=== PATIENT | female | born 1975 | race Caucasian/White ===

== ENCOUNTER 2018-08-19 05:08 | Emergency (ER) | payer OTHER, SELFPAY ==
[2018-08-19 05:10] VITALS: BP 160/90; PULSE 130; RESP 22; TEMP 36.8; O2SAT 97
[2018-08-19] MEDS: HYDROMORPHONE 2 MG INJ SUBCUT (05:25)
--- NOTE | 2018-08-19 05:28 | PC.NURSE ---
Attempt to do assessment. Pt is rolling on bed and yelling from pain. Unable to do assessment at this time. Pt is medicated at this time. will give her additional time to let Dilaudid work. aware.
[2018-08-19] MEDS: SODIUM CHLORIDE 0.9% 1,000 ML 1000 ML IV (05:45)
[2018-08-19] MEDS: HYDROMORPHONE 1 MG INJ IV (05:54)
--- NOTE | 2018-08-19 05:56 | ED_ITS ---
HPI - Female Genitourinary General Chief complaint: Urogenital-Female Stated complaint: Bladder spasms Time Seen by Provider: 08/19/18 05:11 Source: patient and family Mode of arrival: ambulatory Limitations: no limitations History of Present Illness HPI Narrative: 43-year-old female with known history of interstitial cystitis presents with her and a chief complaint of episodes of pelvic spasm that she has had on multiple occasions in the past. She has a chronic history of interstitial cystitis and has seen local urology for years and then was referred to [facility] when her case became too complicated. She has had hydro distention of her bladder on multiple occasions, most recently in November of last year. She denies any fever or chills. She denies any provocation, palliation or radiation. She is not dizzy nor weak or lightheaded. She denies any chest pain or shortness of breath. She takes Percocet at home which is not providing her relief this time around. Her spasms last between 5 and 10 sec Complaint: pelvic pain Onset (ago): hour(s) Location: suprapubic Severity: severe Severity scale (1-10): 9 Quality: Aching and Sharp Duration: intermittent Relieving factors: none Exacerbating factors: none Urinary symptoms: Difficulty Urinating Patient : No Associated symptoms: denies other symptoms Related Data Home Medications Medication Instructions Recorded Confirmed MULTIVITAMIN (#MULTIPLE VITAMINS) 1 cap PO Q DAY #0 12/03/11 Oxycodone/Acetaminophen (Percocet 1 tab PO HS #0 12/03/11 5-325 MG Tablet) [ELIMIRON] 100 mg PO TID #0 12/03/11 atenolol 50 mg PO QDAY #0 01/20/12 VITAMIN B COMPLEX (Vitamin B 1 tab PO QDAY #0 02/28/13 Complex) [IRON] #0 02/28/13 FENOFIBRATE NANOCRYSTALLIZED 100 mg PO BID #0 03/02/13 (TRIGLIDE) Phenazopyridine Hydrochlorid 200 mg PO PRN #0 03/02/13 (#PYRIDIUM) Promethazine HCl (PHENERGAN) 25 mg PO PRN #0 03/02/13 cyclobenzaprine 10 mg PO QDAY #0 03/02/13 hydrochlorothiazide 25 mg PO QDAY #0 03/02/13 imipramine HCl 100 mg PO HS #0 07/10/13 metformin [Glucophage] 500 mg PO BIDCC #0 03/02/13 tamsulosin [Flomax] 0.4 mg PO QHS #0 03/02/13 Previous Rx's Medication Instructions Recorded belladonna alkaloids-opium 1 suppositor GA TID PRN #12 each 08/19/18 Allergies Allergy/AdvReac Type Severity Reaction Status Date / Time nortriptyline [NORTRIPTYLINE] Allergy Mild HIVES Verified 08/19/18 05:15 Sulfa (Sulfonamide Allergy Mild RASH Verified 08/19/18 05:15 Antibiotics) [SULFA (SULFONAMIDE ANTIBIOTICS)] gabapentin [GABAPENTIN] AdvReac Mild ANGRY Verified 08/19/18 05:15 pregabalin [PREGABALIN] AdvReac Mild SWELLING Verified 08/19/18 05:15 HANDS/FEET Review of Systems Review of Systems All systems reviewed & are unremarkable except as noted in HPI and below Constitutional Denies chills, Denies fever(s), Denies lethargy and Denies weakness Eyes Denies change in vision, Denies eye discharge, Denies irritation and Denies loss of vision ENT Ears, Nose, Mouth, and Throat: Denies change in voice, Denies neck pain and Denies sore throat Cardiovascular Denies chest pain, Denies irregular heart rhythm, Denies lightheadedness, Denies palpitations, Denies dyspnea, Denies dyspnea on exertion and Denies orthopnea Respiratory Denies cough, Denies dyspnea, Denies dyspnea on exertion and Denies wheezing Gastrointestinal Gastrointestinal: Denies abdominal pain, Denies change in bowel habits, Denies diarrhea, Denies nausea and Denies vomiting Genitourinary Denies hematuria, Reports pelvic pain, Denies flank pain, Denies urinary incontinence and Denies urinary urgency Musculoskeletal Denies neck pain Integumentary/Breasts Denies pruritus, Denies erythema, Denies rash and Denies wounds Neurologic Denies confusion, Denies loss of vision and Denies weakness Psychiatric Denies anxiety, Denies confusion, Denies depression, Denies homicidal ideation and Denies suicidal ideation Endocrine Denies palpitations Hematologic/Lymphatic Denies easy bruising Allergic/Immunologic Denies wheezing PFSH Medical History Chronic back pain (Chronic) Diabetes type 2, controlled (Chronic) HTN (hypertension) (Chronic) Social History household members: spouse lives independently: Yes caregiver/support person: No Smoking Status: Never smoker alcohol intake: never substance use type: does not use Exam Narrative Exam Narrative: GENERAL: 43-year-old female, obviously in significant distress , clutching her suprapubic region HEAD: Atraumatic. Normocephalic. No temporal or scalp tenderness. EYES: Pupils equal round and reactive. Extraocular motions intact. No scleral icterus. No injection or drainage. ENT: Nose without bleeding, purulent drainage or septal hematoma. Throat without erythema, tonsillar hypertrophy or exudate. Uvula midline. Airway patent. NECK: Trachea midline. No JVD or lymphadenopathy. Supple, nontender, no meningeal signs. CARDIOVASCULAR: Regular rate and rhythm without murmurs, gallops, or rubs. RESPIRATORY: Clear to auscultation. Breath sounds equal bilaterally. No wheezes , rales, or rhonchi. GASTROINTESTINAL: Abdomen soft, non-tender, nondistended. No hepato-splenomegaly , or palpable masses. No guarding. EXTREMITIES: No clubbing, cyanosis, or edema. No joint tenderness, effusion, or edema noted. BACK: Nontender without deformity or crepitance. No flank tenderness. NEURO: AOx3. SKIN: No rash or erythema. Initial Vital Signs Initial Vital Signs: Vital Signs Temperature 98.2 F 08/19/18 05:10 Pulse Rate 130 H 08/19/18 05:10 Respiratory Rate 22 08/19/18 05:10 Blood Pressure 160/90 H 08/19/18 05:10 Pulse Oximetry 97 08/19/18 05:10 Course Orders Ordered: Discontinued Medications Belladonna Alkaloids/Opium (B&O Supprettes) 1 each GA BID ROD Last Admin: 08/19/18 08:05 Dose: 1 each Hydromorphone HCl (Dilaudid) 1 mg IV NOW ONE Stop: 08/19/18 05:12 Last Admin: 08/19/18 05:54 Dose: 1 mg Hydromorphone HCl (Dilaudid) 2 mg SUBCUT NOW ONE Stop: 08/19/18 05:19 Last Admin: 08/19/18 05:25 Dose: 2 mg Sodium Chloride (Normal Saline 0.9%) 1,000 mls @ 1,000 mls/hr IV BOLUS ONE Stop: 08/19/18 06:10 Last Infusion: 08/19/18 07:08 Dose: 0 mls/hr Admin: 08/19/18 05:45 Dose: 1,000 mls/hr Lorazepam (Ativan) 0.5 mg IV NOW ONE Stop: 08/19/18 05:57 Last Admin: 08/19/18 06:10 Dose: 0.5 mg Reevaluation(s) Reevaluation #1: Patient feeling minimal relief after Dilaudid Reevaluation #2: Patient feeling much better after Ativan Consultations Consultation #1: Call to Urology at [facility], they state they have no significant recommendations other than what had already been given. They recommend that she call to schedule an outpatient appointment later in the day Vital Signs - 8 hr 08/19/18 05:10 Temperature 98.2 F Pulse Rate 130 H Respiratory Rate 22 Blood Pressure 160/90 H Pulse Oximetry 97 MDM - Female Genitourinary Lab Data Result diagrams: 08/19/18 05:40 08/19/18 05:40 Lab Results 08/19/18 08/19/18 08/19/18 Range/Units 05:40 05:40 06:12 WBC 10.1 (4.5-11.0) X10^3/uL RBC 4.59 (4.0-5.2) X10^6/uL Hgb 13.6 (12.0-16.0) g/dL Hct 41.7 (36-46) % MCV 90.9 (80-100) fL MCH 29.6 (26-34) PG MCHC 32.5 (30-36) % RDW 13.9 (11.6-14.8) % Plt Count 482 H (150-400) X10^3/uL Neut % (Auto) 57.7 (50-75) % Lymph % (Auto) 29.8 (25-40) % Page % (Auto) 7.5 (3-14) % Eos % (Auto) 4.4 H (2-4) % Baso % (Auto) 0.6 (0-2) % Sodium 140 (137-145) mmol/L Potassium 3.4 (3.4-5.1) mmol/L Chloride 101 (98-107) mmol/L Carbon Dioxide 19 L (22-32) mmol/L BUN 15 (7-17) mg/dL Creatinine 0.80 (0.52-1.04) mg/dL Estimated GFR > 60.0 (>60) mL/min BUN/Creatinine Ratio 18.8 (6-22) Glucose 249 H (70-100) mg/dL Calcium 10.8 H (8.4-10.2) mg/dL Urine RBC 0-1/hpf (0-5/HPF) Urine WBC 0-1/hpf (0-5/HPF) Ur Squamous Epith Cells 0-1 /hpf Urine Bacteria None seen (None) Ur Culture Indicated? Cult not indicated Micro UA Comment Not Reportable Urine Dip Bedside Urine Glucose Negative Bedside Urine Bilirubin - Negative Bedside Urine Ketone - Negative Urine Specific [place] 1.015 Bedside Urine Occult Blood + Bedside Urine pH 6.0 Bedside Urine Protein ++ 100 Bedside Urine Urobilinogen - Negative Bedside Urine Nitrite - Negative Bedside Urine Leukocytes - Negative Esterase Discharge Plan Departure Patient Disposition: Home Clinical Impression: Chronic interstitial cystitis Discharge Date/Time: 08/19/18 08:10 Interventions: ED Discharge Assessment Last Done: 08/19/18 08:09 Instructions: DI for Interstitial Cystitis Activity Restrictions/Additional Instructions: *You have been diagnosed with [interstitial cystitis with bladder spasm ] *What to do: *Take medications as directed *Follow up with your urologist, call for an appointment. Let them know you were seen in the Emergency Department and that we ask that you be seen in follow up *Return to ER if you should have any new, worsening or concerning symptoms Prescriptions: New belladonna alkaloids-opium 16.2-30 mg suppository 1 suppositor GA TID PRN (Reason: pain) Qty: 12 RF: 0 No Action Oxycodone/Acetaminophen (Percocet 5-325 MG Tablet) 1 tab PO HS Qty: 0 RF: 0 [ELIMIRON] 100 mg PO TID Qty: 0 RF: 0 MULTIVITAMIN (#MULTIPLE VITAMINS) 1 cap PO Q DAY Qty: 0 RF: 0 atenolol 50 MG tablet 50 mg PO QDAY Qty: 0 RF: 0 VITAMIN B COMPLEX (Vitamin B Complex) 1 tab PO QDAY Qty: 0 RF: 0 [IRON] Qty: 0 RF: 0 FENOFIBRATE NANOCRYSTALLIZED (TRIGLIDE) 100 mg PO BID Qty: 0 RF: 0 metformin [Glucophage] 500 MG tablet 500 mg PO BIDCC Qty: 0 RF: 0 Phenazopyridine Hydrochlorid (#PYRIDIUM) 200 mg PO PRN Qty: 0 RF: 0 Promethazine HCl (PHENERGAN) 25 mg PO PRN Qty: 0 RF: 0 tamsulosin [Flomax] 0.4 MG capsule,extended release 24hr 0.4 mg PO QHS Qty: 0 RF: 0 hydrochlorothiazide 25 MG tablet 25 mg PO QDAY Qty: 0 RF: 0 imipramine HCl 25 MG tablet 100 mg PO HS Qty: 0 RF: 0 cyclobenzaprine 10 MG tablet 10 mg PO QDAY Qty: 0 RF: 0
[2018-08-19] MEDS: LORazepam 2 MG/ML SYRINGE 0.5 MG IV (06:10)
[2018-08-19 06:15] LABS: BUN Creatinine Ratio 18.8 (6-22); Blood Urea Nitrogen 15 mg/dL (7-17); Calcium 10.8 mg/dL (8.4-10.2); Carbon Dioxide 19 mmol/L (22-32); Chloride 101 mmol/L (98-107); Estimated Glomerular Filt Rate > 60.0 mL/min (>60); Glucose 249 mg/dL (70-100); HEMOLYSIS < 15 (0-50); Potassium 3.4 mmol/L (3.4-5.1); Sodium 140 mmol/L (137-145)
[2018-08-19 06:28] VITALS: BP 145/90; PULSE 95; RESP 19; O2SAT 100
[2018-08-19 06:30] LABS: Bacteria Urine None Seen
[2018-08-19 06:58] LABS: Culture Indicated Urine Cult Not Indicated; RBC Urine 0-1/HPF (0-5/HPF); Squamous Epithelial Cell Urine 0-1 /HPF; WBC Urine 0-1/HPF (0-5/HPF)
[2018-08-19 07:28] LABS: Hematocrit 41.7 % (36-46); Hemoglobin 13.6 g/dL (12.0-16.0); Mean Corpuscular HGB Conc 32.5 % (30-36); Mean Corpuscular Hemoglobin 29.6 PG (26-34); Mean Corpuscular Volume 90.9 fL (80-100); Red Blood Cell Count 4.59 X10^6/uL (4.0-5.2); Red Cell Distribution Width 13.9 % (11.6-14.8); White Blood Cell Count 10.1 X10^3/uL (4.5-11.0)
[2018-08-19 07:29] LABS: Eosinophils Percent Auto 4.4 % (2-4); Lymphocytes Percent Auto 29.8 % (25-40); Monocytes Percent Auto 7.5 % (3-14); Neutrophils Percent Auto 57.7 % (50-75); Platelet Count 482 X10^3/uL (150-400)
[2018-08-19 07:30] LABS: Add Manual Diff / Slide Review NO; Basophils Percent Auto 0.6 % (0-2)
[2018-08-19 08:05] VITALS: BP 130/87; PULSE 82; RESP 14; O2SAT 98
[2018-08-19] MEDS: BELLADONNA/OPIUM SUPPOSITORIES 1 EACH PR (08:05)
== END 2018-08-19 08:10 | disposition home or self-care (01) ==
PROVIDERS: Emergency Provider Emergency Medicine; Family Provider Family Medicine; PCP Family Medicine
DX: N30.10 Interstitial cystitis (chronic) without hematuria (principal)
CPT/HCPCS: 36591; 80048; 81003; 81015; 85025; 96361; 96374; 96375; 99283; 99284; J1170; J2060

== ENCOUNTER 2018-10-02 15:54 | Emergency (ER) | payer OTHER, SELFPAY ==
[2018-10-02 15:58] VITALS: BP 147/95; PULSE 121; RESP 18; TEMP 36.8; O2SAT 95
--- NOTE | 2018-10-02 17:50 | ED.RECABL ---
HPI - Recheck/Abnormal Lab/Rx <Amina Howe PA-C - Last Filed: 10/02/18 20:50> General Chief Complaint: Recheck/Abnormal Lab/Rx Stated Complaint: BLADDER PAIN Time Seen by Provider: 10/02/18 16:36 Source: patient Mode of arrival: ambulatory Limitations: no limitations History of Present Illness HPI narrative: This 43-year-old female comes to ED due to needing help with pain management medications. She is on multiple medications for severe interstitial cystitis which she has had for many years including Elmiron, Imipramine, and has a neurostimulator for this. She states these help, but she has also been on oxycodone for years for the pain. She takes plain oxycodone as smaller amounts of Tylenol, states liver function being monitored. She denies any acute symptoms today. She states that her routine pain medication prescription was due on August 27[facility] and she has not been able to get this. She has her prescription bottle with her, takes 4-6 pills per day. 180 tabs were filled on September 12. She states that her pulse rates are typically similar to what they are now. Related Data Home Medications Medication Instructions Recorded Confirmed MULTIVITAMIN (#MULTIPLE VITAMINS) 1 cap PO Q DAY #0 12/03/11 Oxycodone/Acetaminophen (Percocet 1 tab PO HS #0 12/03/11 5-325 MG Tablet) [ELIMIRON] 100 mg PO TID #0 12/03/11 atenolol 50 mg PO QDAY #0 01/20/12 VITAMIN B COMPLEX (Vitamin B 1 tab PO QDAY #0 02/28/13 Complex) [IRON] #0 02/28/13 FENOFIBRATE NANOCRYSTALLIZED 100 mg PO BID #0 03/02/13 (TRIGLIDE) Phenazopyridine Hydrochlorid 200 mg PO PRN #0 03/02/13 (#PYRIDIUM) Promethazine HCl (PHENERGAN) 25 mg PO PRN #0 03/02/13 cyclobenzaprine 10 mg PO QDAY #0 03/02/13 hydrochlorothiazide 25 mg PO QDAY #0 03/02/13 imipramine HCl 100 mg PO HS #0 03/02/13 metformin [Glucophage] 500 mg PO BIDCC #0 03/02/13 tamsulosin [Flomax] 0.4 mg PO QHS #0 03/02/13 Previous Rx's Medication Instructions Recorded belladonna alkaloids-opium 1 suppositor [place] TID PRN #12 each 08/19/18 oxycodone 5 mg PO Q4-6H PRN #8 cap 10/02/18 Allergies Allergy/AdvReac Type Severity Reaction Status Date / Time nortriptyline [NORTRIPTYLINE] Allergy Mild HIVES Verified 08/19/18 05:15 Sulfa (Sulfonamide Allergy Mild RASH Verified 08/19/18 05:15 Antibiotics) [SULFA (SULFONAMIDE ANTIBIOTICS)] gabapentin [GABAPENTIN] AdvReac Mild ANGRY Verified 08/19/18 05:15 pregabalin [PREGABALIN] AdvReac Mild SWELLING Verified 08/19/18 05:15 HANDS/FEET Review of Systems <Amina Howe PA-C - Last Filed: 10/02/18 20:50> Review of Systems ROS Unobtainable: All systems reviewed & are unremarkable except as noted in HPI and below PFSH <Amina Howe PA-C - Last Filed: 10/02/18 20:50> Medical History Anxiety disorder (Chronic) Chronic back pain (Chronic) Chronic interstitial cystitis (Chronic) Diabetes type 2, controlled (Chronic) HTN (hypertension) (Chronic) No pertinent family history (Resolved) Surgical History Status post insertion of brain-responsive neurostimulation device (Resolved) Social History household members: spouse lives independently: Yes caregiver/support person: No Smoking Status: Never smoker alcohol intake: never substance use type: does not use Social History household members: spouse lives independently: Yes caregiver/support person: No Smoking Status: Never smoker alcohol intake: never substance use type: does not use Exam <Amina Howe PA-C - Last Filed: 10/02/18 20:50> Narrative Exam Narrative: GENERAL APPEARANCE: Patient sitting comfortably, in no distress. Slightly anxious at times LUNGS: Clear to auscultation bilaterally. HEART: Rate and rhythm regular without murmur, normal S1 and S2, no S3 or S4. ABDOMEN: Soft, nondistended, no CVAT Initial Vital Signs Initial Vital Signs: Vital Signs Temperature 98.2 F 10/02/18 15:58 Pulse Rate 121 H 10/02/18 15:58 Respiratory Rate 18 10/02/18 15:58 Blood Pressure 147/95 H 10/02/18 15:58 Pulse Oximetry 95 10/02/18 15:58 <Marlon Henry DO - Last Filed: 10/02/18 21:20> Initial Vital Signs Initial Vital Signs: Vital Signs Temperature 98.2 F 10/02/18 15:58 Pulse Rate 121 H 10/02/18 15:58 Respiratory Rate 18 10/02/18 15:58 Blood Pressure 147/95 H 10/02/18 15:58 Pulse Oximetry 95 10/02/18 15:58 Course <Amina Howe PA-C - Last Filed: 10/02/18 20:50> Additional Information: No previous prescriptions on statewide controlled substance database (consistent with rxs only at [facility], [facility]). Patient has her rx bottle, and staff here have confirmed that [facility] facilities have been closed. She was given prescription medication to last the weekend until she can reach her primary memory care director/[facility] pharmacy on Thursday. Orders Ordered: Discontinued Medications Oxycodone/Acetaminophen (Endocet 5/325 Prepack) 1 bottle MISC SEEINSTR ONE Stop: 10/02/18 18:04 Last Admin: 10/02/18 18:08 Dose: 1 bottle Vital Signs - 8 hr 10/02/18 15:58 10/02/18 17:59 Temperature 98.2 F Pulse Rate 121 H 122 H Respiratory Rate 18 22 Blood Pressure 147/95 H Blood Pressure [Right Arm] 113/83 Pulse Oximetry 95 82 L <Marlon Henry DO - Last Filed: 10/02/18 21:20> Orders Ordered: Discontinued Medications Oxycodone/Acetaminophen (Endocet 5/325 Prepack) 1 bottle MISC SEEINSTR ONE Stop: 10/02/18 18:04 Last Admin: 10/02/18 18:08 Dose: 1 bottle Vital Signs - 8 hr 10/02/18 15:58 10/02/18 17:59 Temperature 98.2 F Pulse Rate 121 H 122 H Respiratory Rate 18 22 Blood Pressure 147/95 H Blood Pressure [Right Arm] 113/83 Pulse Oximetry 95 82 L Discharge Plan Departure Patient Disposition: Home Clinical Impression: Encounter for medication refill, Chronic interstitial cystitis Discharge Date/Time: 10/02/18 18:13 Interventions: ED Discharge Assessment Last Done: 10/02/18 18:26 Instructions: DI for Chronic Pain -- Adult, DI for Interstitial Cystitis Activity Restrictions/Additional Instructions: Please use the oxycodone acetaminophen that we gave you for your pain tonight, and you can fill the prescription for plain oxycodone that you usually take tomorrow. This should last you until Thursday when [facility]. Please talk with your primary care provider about whether you can get prescriptions to fill on or after date X . I do not know whether this will work at the [employer] [facility] [employer] since it is Federal, but it is okay to do at outside pharmacies (it is not the same as post dating a prescription, which is illegal). That would help you not run into this problem again when the base pharmacy closes. Prescriptions: New oxycodone 5 mg capsule 5 mg PO Q4-6H PRN (Reason: bladder/IC pain) Qty: 8 RF: 0 No Action Oxycodone/Acetaminophen (Percocet 5-325 MG Tablet) 1 tab PO HS Qty: 0 RF: 0 [ELIMIRON] 100 mg PO TID Qty: 0 RF: 0 MULTIVITAMIN (#MULTIPLE VITAMINS) 1 cap PO Q DAY Qty: 0 RF: 0 atenolol 50 MG tablet 50 mg PO QDAY Qty: 0 RF: 0 VITAMIN B COMPLEX (Vitamin B Complex) 1 tab PO QDAY Qty: 0 RF: 0 [IRON] Qty: 0 RF: 0 FENOFIBRATE NANOCRYSTALLIZED (TRIGLIDE) 100 mg PO BID Qty: 0 RF: 0 metformin [Glucophage] 500 MG tablet 500 mg PO BIDCC Qty: 0 RF: 0 Phenazopyridine Hydrochlorid (#PYRIDIUM) 200 mg PO PRN Qty: 0 RF: 0 Promethazine HCl (PHENERGAN) 25 mg PO PRN Qty: 0 RF: 0 tamsulosin [Flomax] 0.4 MG capsule,extended release 24hr 0.4 mg PO QHS Qty: 0 RF: 0 hydrochlorothiazide 25 MG tablet 25 mg PO QDAY Qty: 0 RF: 0 imipramine HCl 25 MG tablet 100 mg PO HS Qty: 0 RF: 0 cyclobenzaprine 10 MG tablet 10 mg PO QDAY Qty: 0 RF: 0 belladonna alkaloids-opium 16.2-30 mg suppository 1 suppositor AK TID PRN (Reason: pain) Qty: 12 RF: 0 Referrals: Mayra Edwards MD [Primary Care Provider] - <Marlon Henry DO - Last Filed: 10/02/18 21:20> Cosign ED Attending Leslie Attestation: I was available for consultation during this patient's emergency department encounter
[2018-10-02 17:59] VITALS: BP 113/83; PULSE 122; RESP 22; O2SAT 82
--- NOTE | 2018-10-02 18:03 | ED_ITS ---
HPI - Recheck/Abnormal Lab/Rx <Amina Howe PA-C - Last Filed: 10/02/18 20:50> General Chief Complaint: Recheck/Abnormal Lab/Rx Stated Complaint: BLADDER PAIN Time Seen by Provider: 10/02/18 16:36 Source: patient Mode of arrival: ambulatory Limitations: no limitations History of Present Illness HPI narrative: This 43-year-old female comes to ED due to needing help with pain management medications. She is on multiple medications for severe interstitial cystitis which she has had for many years including Elmiron, Imipramine, and has a neurostimulator for this. She states these help, but she has also been on oxycodone for years for the pain. She takes plain oxycodone as smaller amounts of Tylenol, states liver function being monitored. She denies any acute symptoms today. She states that her routine pain medication prescription was due on August 27, [facility] and she has not been able to get this. She has her prescription bottle with her, takes 4-6 pills per day. 180 tabs were filled on September 12. She states that her pulse rates are typically similar to what they are now. Related Data Home Medications Medication Instructions Recorded Confirmed MULTIVITAMIN (#MULTIPLE VITAMINS) 1 cap PO Q DAY #0 12/03/11 Oxycodone/Acetaminophen (Percocet 1 tab PO HS #0 12/03/11 5-325 MG Tablet) [ELIMIRON] 100 mg PO TID #0 12/03/11 atenolol 50 mg PO QDAY #0 01/20/12 VITAMIN B COMPLEX (Vitamin B 1 tab PO QDAY #0 02/28/13 Complex) [IRON] #0 02/28/13 FENOFIBRATE NANOCRYSTALLIZED 100 mg PO BID #0 03/02/13 (TRIGLIDE) Phenazopyridine Hydrochlorid 200 mg PO PRN #0 03/02/13 (#PYRIDIUM) Promethazine HCl (PHENERGAN) 25 mg PO PRN #0 03/02/13 cyclobenzaprine 10 mg PO QDAY #0 03/02/13 hydrochlorothiazide 25 mg PO QDAY #0 03/02/13 imipramine HCl 100 mg PO HS #0 03/02/13 metformin [Glucophage] 500 mg PO BIDCC #0 03/02/13 tamsulosin [Flomax] 0.4 mg PO QHS #0 03/02/13 Previous Rx's Medication Instructions Recorded belladonna alkaloids-opium 1 suppositor CO TID PRN #12 each 08/19/18 oxycodone 5 mg PO Q4-6H PRN #8 cap 10/02/18 Allergies Allergy/AdvReac Type Severity Reaction Status Date / Time nortriptyline [NORTRIPTYLINE] Allergy Mild HIVES Verified 08/19/18 05:15 Sulfa (Sulfonamide Allergy Mild RASH Verified 08/19/18 05:15 Antibiotics) [SULFA (SULFONAMIDE ANTIBIOTICS)] gabapentin [GABAPENTIN] AdvReac Mild ANGRY Verified 08/19/18 05:15 pregabalin [PREGABALIN] AdvReac Mild SWELLING Verified 08/19/18 05:15 HANDS/FEET Review of Systems <Amina Howe PA-C - Last Filed: 10/02/18 20:50> Review of Systems ROS Unobtainable: All systems reviewed & are unremarkable except as noted in HPI and below PFSH <Amina Howe PA-C - Last Filed: 10/02/18 20:50> Medical History Anxiety disorder (Chronic) Chronic back pain (Chronic) Chronic interstitial cystitis (Chronic) Diabetes type 2, controlled (Chronic) HTN (hypertension) (Chronic) No pertinent family history (Resolved) Surgical History Status post insertion of brain-responsive neurostimulation device (Resolved) Social History household members: spouse lives independently: Yes caregiver/support person: No Smoking Status: Never smoker alcohol intake: never substance use type: does not use Social History household members: spouse lives independently: Yes caregiver/support person: No Smoking Status: Never smoker alcohol intake: never substance use type: does not use Exam <Amina Howe PA-C - Last Filed: 10/02/18 20:50> Narrative Exam Narrative: GENERAL APPEARANCE: Patient sitting comfortably, in no distress. Slightly anxious at times LUNGS: Clear to auscultation bilaterally. HEART: Rate and rhythm regular without murmur, normal S1 and S2, no S3 or S4. ABDOMEN: Soft, nondistended, no CVAT Initial Vital Signs Initial Vital Signs: Vital Signs Temperature 98.2 F 10/02/18 15:58 Pulse Rate 121 H 10/02/18 15:58 Respiratory Rate 18 10/02/18 15:58 Blood Pressure 147/95 H 10/02/18 15:58 Pulse Oximetry 95 10/02/18 15:58 <Marlon Henry DO - Last Filed: 10/02/18 21:20> Initial Vital Signs Initial Vital Signs: Vital Signs Temperature 98.2 F 10/02/18 15:58 Pulse Rate 121 H 10/02/18 15:58 Respiratory Rate 18 10/02/18 15:58 Blood Pressure 147/95 H 10/02/18 15:58 Pulse Oximetry 95 10/02/18 15:58 Course <Amina Howe PA-C - Last Filed: 10/02/18 20:50> Additional Information: No previous prescriptions on statewide controlled substance database (consistent with rxs only at [facility], [facility]). Patient has her rx bottle, and staff here have confirmed that [facility] facilities have been closed. She was given prescription medication to last the weekend until she can reach her primary wild animal caretaker/[facility] pharmacy on Thursday. Orders Ordered: Discontinued Medications Oxycodone/Acetaminophen (Endocet 5/325 Prepack) 1 bottle MISC SEEINSTR ONE Stop: 10/02/18 18:04 Last Admin: 10/02/18 18:08 Dose: 1 bottle Vital Signs - 8 hr 10/02/18 15:58 10/02/18 17:59 Temperature 98.2 F Pulse Rate 121 H 122 H Respiratory Rate 18 22 Blood Pressure 147/95 H Blood Pressure [Right Arm] 113/83 Pulse Oximetry 95 82 L <Marlon Henry DO - Last Filed: 10/02/18 21:20> Orders Ordered: Discontinued Medications Oxycodone/Acetaminophen (Endocet 5/325 Prepack) 1 bottle MISC SEEINSTR ONE Stop: 10/02/18 18:04 Last Admin: 10/02/18 18:08 Dose: 1 bottle Vital Signs - 8 hr 10/02/18 15:58 10/02/18 17:59 Temperature 98.2 F Pulse Rate 121 H 122 H Respiratory Rate 18 22 Blood Pressure 147/95 H Blood Pressure [Right Arm] 113/83 Pulse Oximetry 95 82 L Discharge Plan Departure Patient Disposition: Home Clinical Impression: Encounter for medication refill, Chronic interstitial cystitis Discharge Date/Time: 10/02/18 18:13 Interventions: ED Discharge Assessment Last Done: 10/02/18 18:26 Instructions: DI for Chronic Pain -- Adult, DI for Interstitial Cystitis Activity Restrictions/Additional Instructions: Please use the oxycodone acetaminophen that we gave you for your pain tonight, and you can fill the prescription for plain oxycodone that you usually take tomorrow. This should last you until Thursday when [facility]. Please talk with your primary care provider about whether you can get prescriptions to fill on or after date X . I do not know whether this will work at the [facility] since it is [facility], but it is okay to do at outside pharmacies (it is not the same as post dating a prescription, which is illegal). That would help you not run into this problem again when the [facility] pharmacy closes. Prescriptions: New oxycodone 5 mg capsule 5 mg PO Q4-6H PRN (Reason: bladder/IC pain) Qty: 8 RF: 0 No Action Oxycodone/Acetaminophen (Percocet 5-325 MG Tablet) 1 tab PO HS Qty: 0 RF: 0 [ELIMIRON] 100 mg PO TID Qty: 0 RF: 0 MULTIVITAMIN (#MULTIPLE VITAMINS) 1 cap PO Q DAY Qty: 0 RF: 0 atenolol 50 MG tablet 50 mg PO QDAY Qty: 0 RF: 0 VITAMIN B COMPLEX (Vitamin B Complex) 1 tab PO QDAY Qty: 0 RF: 0 [IRON] Qty: 0 RF: 0 FENOFIBRATE NANOCRYSTALLIZED (TRIGLIDE) 100 mg PO BID Qty: 0 RF: 0 metformin [Glucophage] 500 MG tablet 500 mg PO BIDCC Qty: 0 RF: 0 Phenazopyridine Hydrochlorid (#PYRIDIUM) 200 mg PO PRN Qty: 0 RF: 0 Promethazine HCl (PHENERGAN) 25 mg PO PRN Qty: 0 RF: 0 tamsulosin [Flomax] 0.4 MG capsule,extended release 24hr 0.4 mg PO QHS Qty: 0 RF: 0 hydrochlorothiazide 25 MG tablet 25 mg PO QDAY Qty: 0 RF: 0 imipramine HCl 25 MG tablet 100 mg PO HS Qty: 0 RF: 0 cyclobenzaprine 10 MG tablet 10 mg PO QDAY Qty: 0 RF: 0 belladonna alkaloids-opium 16.2-30 mg suppository 1 suppositor CO TID PRN (Reason: pain) Qty: 12 RF: 0 Referrals: Mayra Edwards MD [Primary Care Provider] - <Marlon Henry DO - Last Filed: 10/02/18 21:20> Cosign ED Attending Leslie Attestation: I was available for consultation during this patient's emergency department encounter
[2018-10-02] MEDS: OXYCODONE/APAP 5/325 PREPACK 1 BOTTLE MISC (18:08)
== END 2018-10-02 18:13 | disposition home or self-care (01) ==
PROVIDERS: Emergency Provider Internal Medicine; Family Provider Family Medicine; PCP Family Medicine
DX: N30.10 Interstitial cystitis (chronic) without hematuria (principal)
CPT/HCPCS: 99282

== ENCOUNTER 2021-01-30 21:18 | Emergency (ER) | payer OTHER, SELFPAY ==
[2021-01-30 21:20] VITALS: PULSE 139; RESP 30; TEMP 36.2; O2SAT 96
[2021-01-30] MEDS: LORazepam 2 MG/ML INJ 1 MG IV ×2 (21:40→23:46)
--- NOTE | 2021-01-30 23:06 | PC.NURSE ---
Patient took normal schedule pain medications of oxycodone and tylenol. Provider Carmelo reyes.
--- NOTE | 2021-01-30 23:07 | ED.ABDPAIN ---
HPI - Abdominal Pain General Chief Complaint: Abdominal Pain Stated Complaint: needs help Time Seen by Provider: 01/30/21 21:46 Source: patient Mode of arrival: Ambulatory History of Present Illness HPI narrative: 46-year-old woman with long history of interstitial cystitis followed by [facility]. Current medications for this include pentazocine polysulfate sodium t.i.d., Flexeril t.i.d., oxycodone 10 mg up to every 6 hours as needed, Phenergan 25 mg every 4 hours as needed, docusate, peridium and imipramine. Her last bladder expansion was in 2017. She was post ago and again for another infusion in early 2019. All of this was delayed because of COVID. Her symptoms have been getting significantly worse over the last number of months and today was having such bladder spasm that she was unable to tolerate the pain any longer. She describes no fevers, no gross hematuria, no constipation, no flank pain, no myalgias, cough, chills, chest pain, palpitations, headaches. Related Data Home Medications Medication Instructions Recorded Confirmed MULTIVITAMIN (#MULTIPLE VITAMINS) 1 cap PO Q DAY #0 12/03/11 Oxycodone/Acetaminophen (Percocet 1 tab PO HS #0 12/03/11 5-325 MG Tablet) [ELIMIRON] 100 mg PO TID #0 12/03/11 atenolol 50 mg PO QDAY #0 01/20/12 VITAMIN B COMPLEX (Vitamin B 1 tab PO QDAY #0 02/28/13 Complex) [IRON] #0 02/28/13 FENOFIBRATE NANOCRYSTALLIZED 100 mg PO BID #0 03/02/13 (TRIGLIDE) Phenazopyridine Hydrochlorid 200 mg PO PRN #0 03/02/13 (#PYRIDIUM) Promethazine HCl (PHENERGAN) 25 mg PO PRN #0 03/02/13 cyclobenzaprine 10 mg PO QDAY #0 03/02/13 hydrochlorothiazide 25 mg PO QDAY #0 03/02/13 imipramine HCl 100 mg PO HS #0 03/02/13 metformin [Glucophage] 500 mg PO BIDCC #0 03/02/13 tamsulosin [Flomax] 0.4 mg PO QHS #0 03/02/13 Previous Rx's Medication Instructions Recorded belladonna alkaloids-opium 1 suppositor MI TID PRN #12 each 08/19/18 oxycodone 5 mg PO Q4-6H PRN #8 cap 10/02/18 Allergies Allergy/AdvReac Type Severity Reaction Status Date / Time nortriptyline [NORTRIPTYLINE] Allergy Mild HIVES Verified 08/19/18 05:15 Sulfa (Sulfonamide Allergy Mild RASH Verified 08/19/18 05:15 Antibiotics) [SULFA (SULFONAMIDE ANTIBIOTICS)] gabapentin [GABAPENTIN] AdvReac Mild ANGRY Verified 08/19/18 05:15 pregabalin [PREGABALIN] AdvReac Mild SWELLING Verified 08/19/18 05:15 HANDS/FEET Review of Systems Review of Systems Narrative: Remainder of ROS Patient History Medical History Anxiety disorder Chronic back pain Chronic interstitial cystitis Diabetes type 2, controlled HTN (hypertension) No pertinent family history Surgical History Status post insertion of brain-responsive neurostimulation device Social History household members: spouse lives independently: Yes caregiver/support person: No Smoking Status: Never smoker alcohol intake: never substance use type: does not use Smoking Status: Never smoker Substance Use Type: does not use Exam Narrative Exam Narrative: General: Alert appropriate in no acute distress Respiratory: Able to speak in full sentences, no obvious respiratory distress Abdomen: Normal bowel tones, abdomen is soft. Significant suprapubic tenderness. No flank pain. Skin: No obvious rashes, warm and dry Neurologic: Grossly intact no obvious asymmetries or abnormalities Psych: appropriate insight and affect, cooperative Initial Vital Signs Initial Vital Signs: Vital Signs Temperature 97.1 F L 01/30/21 21:20 Pulse Rate 139 H 01/30/21 21:20 Respiratory Rate 30 H 01/30/21 21:20 Pulse Oximetry 96 01/30/21 21:20 Course Orders Ordered: Discontinued Medications Hydromorphone HCl (Hydromorphone 1 Mg Inj) 1 mg IV NOW ONE Stop: 01/30/21 23:20 Last Admin: 01/31/21 00:40 Dose: Not Given Documented by: APAFFIE Sodium Chloride (Normal Saline 0.9%) 1,000 mls @ 1,000 mls/hr IV BOLUS ONE Stop: 01/31/21 00:18 Last Infusion: 01/31/21 00:42 Dose: 0 mls/hr Documented by: Admin: 01/30/21 23:33 Dose: 1,000 mls/hr Documented by: CAYETANO Imipramine HCl (Imipramine Hcl 25 Mg Tablet) 25 mg PO NOW ONE Stop: 01/30/21 23:21 Last Admin: 01/30/21 23:46 Dose: Not Given Documented by: CAYETANO Lorazepam (Lorazepam 2 Mg/Ml Inj) 1 mg IV NOW ONE Stop: 01/30/21 21:35 Last Admin: 01/30/21 21:40 Dose: 1 mg Documented by: CAYETANO Lorazepam (Lorazepam 2 Mg/Ml Inj) 1 mg IV NOW ONE Stop: 01/30/21 23:21 Last Admin: 01/30/21 23:46 Dose: 1 mg Documented by: CAYETANO Vital Signs Vital signs: Vital Signs - 8 hr 01/30/21 21:20 01/31/21 00:02 Temperature 97.1 F L Pulse Rate 139 H 105 H Respiratory Rate 30 H 16 Blood Pressure 111/54 L Pulse Oximetry 96 93 MDM - Abdominal Pain Medical Records Attestation: I reviewed the patient's medical records. MDM Narrative Medical decision making narrative: 46-year-old woman with a long history of interstitial cystitis she is almost 2 years since her last bladder treatment at [facility]. Today she responded nicely to a L of fluid and a total of 2 mg of Ativan. She did take her own 10 mg of oxycodone in the emergency department. By the time of discharge her bladder spasms had stopped and she felt that she was back to her baseline chronic interstitial pain. There is no evidence of infection at this time based on her clinical exam and history. Strongly recommended that she contact her urologist [facility] to reschedule another bladder treatment session. She is safe for home discharge Discharge Plan Departure Patient Disposition: Home Clinical Impression: Interstitial cystitis Instructions: DI for Interstitial Cystitis Activity Restrictions/Additional Instructions: Thank you for coming in today. I am so sorry that your interstitial cystitis has been getting worse over the past number of months and was causing such severe spasm tonight. In the emergency room he received a L of fluid and IV Ativan to help with the spasm. You do need to contact [facility] to get in for another bladders distension treatment. Please try set up an appointment tomorrow It does look like you are on a very appropriate medication regimen to try to treat your symptoms. Interstitial cystitis can be a horrible disease. I hope that you are feeling better Prescriptions: No Action Oxycodone/Acetaminophen (Percocet 5-325 MG Tablet) 1 tab PO HS Qty: 0 RF: 0 [ELIMIRON] 100 mg PO TID Qty: 0 RF: 0 MULTIVITAMIN (#MULTIPLE VITAMINS) 1 cap PO Q DAY Qty: 0 RF: 0 atenolol 50 MG tablet 50 mg PO QDAY Qty: 0 RF: 0 VITAMIN B COMPLEX (Vitamin B Complex) 1 tab PO QDAY Qty: 0 RF: 0 [IRON] Qty: 0 RF: 0 FENOFIBRATE NANOCRYSTALLIZED (TRIGLIDE) 100 mg PO BID Qty: 0 RF: 0 metformin [Glucophage] 500 MG tablet 500 mg PO BIDCC Qty: 0 RF: 0 Phenazopyridine Hydrochlorid (#PYRIDIUM) 200 mg PO PRN Qty: 0 RF: 0 Promethazine HCl (PHENERGAN) 25 mg PO PRN Qty: 0 RF: 0 tamsulosin [Flomax] 0.4 MG capsule,extended release 24hr 0.4 mg PO QHS Qty: 0 RF: 0 hydrochlorothiazide 25 MG tablet 25 mg PO QDAY Qty: 0 RF: 0 imipramine HCl 25 MG tablet 100 mg PO HS Qty: 0 RF: 0 cyclobenzaprine 10 MG tablet 10 mg PO QDAY Qty: 0 RF: 0 oxycodone 5 mg capsule 5 mg PO Q4-6H PRN (Reason: bladder/IC pain) Qty: 8 RF: 0 belladonna alkaloids-opium 16.2-30 mg suppository 1 suppositor MI TID PRN (Reason: pain) Qty: 12 RF: 0 Referrals: Mayra Edwards MD [Primary Care Provider] -
[2021-01-30] MEDS: SODIUM CHLORIDE 0.9% 1,000 ML 1000 ML IV (23:33)
[2021-01-31 00:02] VITALS: BP 111/54; PULSE 105; RESP 16; O2SAT 93
--- NOTE | 2021-01-31 01:08 | PC.NURSE ---
report taken from Skinny RN at 0030,she did not receive dose of iv dilaudid by Skinny as she was sedated and relaxed.Patient was lethargic but alert and smiling and thankfull at her discharge,she left in w/c with her spouse who denied needing my help to bring her to their car.She was offered and ate small snack before leaving at her husbands request.
== END 2021-01-31 00:56 | disposition home or self-care (01) ==
PROVIDERS: Emergency Provider Emergency Medicine; Family Provider Family Medicine; PCP Family Medicine
DX: N30.10 Interstitial cystitis (chronic) without hematuria (principal)
CPT/HCPCS: 96361; 96374; 96376; 99283; 99284; J2060

== ENCOUNTER → 2021-04-20 10:51 | Outpatient (CLI) | payer OTHER, SELFPAY ==
[2021-04-20 13:34] LABS: COVID19 -Nasal RAPID Negative (Negative)
== END ==
PROVIDERS: Family Provider Family Medicine; PCP Family Medicine; Visit Provider Nurse Practitioner
DX: Z01.812 Encounter for preprocedural laboratory examination (principal); Z20.822 Contact with and (suspected) exposure to COVID-19
CPT/HCPCS: 87635

== ENCOUNTER 2022-10-15 23:47 | Emergency (ER) | payer OTHER, SELFPAY ==
[2022-10-15 23:52] VITALS: BP 168/96; PULSE 122; RESP 18; TEMP 36.6; O2SAT 93
[2022-10-16] VITALS (8 sets, daily range): BP systolic 134–152; BP diastolic 89–91; PULSE 89–113; RESP 18–37; TEMP 37.3; O2SAT 94–98
[2022-10-16] MEDS: SODIUM CHLORIDE 0.9% 1,000 ML 1000 ML IV (00:15)
[2022-10-16] MEDS: ONDANSETRON 4 MG/2 ML INJ IV (00:15)
[2022-10-16 00:23] LABS: Add Manual Diff / Slide Review NO; Basophils Absolute Auto 100 /uL (0-100); Basophils Percent Auto 0.6 % (0-2); Eosinophils Absolute Auto 100 /uL (0-450); Eosinophils Percent Auto 1.1 % (2-4); Hematocrit 42.9 % (36-46); Hemoglobin 13.8 g/dL (12.0-16.0); Lymphocytes Absolute Auto 2800 /uL (1100-4500); Lymphocytes Percent Auto 24.8 % (25-40); Mean Corpuscular HGB Conc 32.3 % (30-36); Mean Corpuscular Hemoglobin 29.8 PG (26-34); Mean Corpuscular Volume 92.5 fL (80-100); Monocytes Absolute Auto 1000 /uL (0-900); Monocytes Percent Auto 9.2 % (3-14); Neutrophils Absolute Auto 7300 /uL (1500-7000); Neutrophils Percent Auto 64.3 % (50-75); Platelet Count 482 X10^3/uL (150-400); Red Blood Cell Count 4.63 X10^6/uL (4.0-5.2); Red Cell Distribution Width 13.7 % (11.6-14.8); White Blood Cell Count 11.3 X10^3/uL (4.5-11.0)
--- NOTE | 2022-10-16 00:24 | ED_ITS ---
HPI - General Adult General Chief complaint: Abdominal Pain Stated complaint: THROWING UP 6X IN 2 DAYS Time Seen by Provider: 10/16/22 00:08 Source: patient and family Mode of arrival: Wheelchair History of Present Illness HPI narrative: 47-year-old female who is here for evaluation of multiple episodes of vomiting in the past 24 hours. She is also having some upper abdominal discomfort. No diarrhea. No other sick contacts. No fevers. Has not tried anything at home for the symptoms. No recent travel. No recent antibiotics. No chest pain. No shortness of breath. No fevers. No urinary symptoms. Related Data Home Medications Medication Instructions Recorded Confirmed MULTIVITAMIN (#MULTIPLE VITAMINS) 1 cap PO Q DAY ##0 12/03/11 Oxycodone/Acetaminophen (Percocet 1 tab PO HS ##0 12/03/11 5-325 MG Tablet) [ELIMIRON] 100 mg PO TID ##0 12/03/11 atenolol 50 mg tablet 50 mg PO QDAY ##0 01/20/12 VITAMIN B COMPLEX (Vitamin B 1 tab PO QDAY ##0 02/28/13 Complex) [IRON] ##0 02/28/13 FENOFIBRATE NANOCRYSTALLIZED 100 mg PO BID ##0 03/02/13 (TRIGLIDE) Phenazopyridine Hydrochlorid 200 mg PO PRN ##0 03/02/13 (#PYRIDIUM) Promethazine HCl (PHENERGAN) 25 mg PO PRN ##0 03/02/13 cyclobenzaprine 10 mg tablet 10 mg PO QDAY ##0 03/02/13 hydrochlorothiazide 25 mg tablet 25 mg PO QDAY ##0 03/02/13 imipramine HCl 25 mg tablet 100 mg PO HS ##0 03/02/13 metformin 500 mg tablet 500 mg PO BIDCC ##0 03/02/13 (Glucophage) tamsulosin 0.4 mg capsule (Flomax) 0.4 mg PO QHS ##0 03/02/13 Previous Rx's Medication Instructions Recorded belladonna alkaloids-opium 16.2 1 suppositor [place] TID PRN pain #12 ea 08/19/ mg-30 mg rectal suppository oxycodone 5 mg capsule 5 mg PO Q4-6H PRN bladder/IC pain 02/09/19 #8 caps ondansetron 4 mg disintegrating 4 mg PO Q8H PRN nausea and 10/16/22 tablet vomiting #10 tabs Allergies Allergy/AdvReac Type Severity Reaction Status Date / Time nortriptyline [NORTRIPTYLINE] Allergy Mild HIVES Verified 08/19/18 05:15 Sulfa (Sulfonamide Allergy Mild RASH Verified 08/19/18 05:15 Antibiotics) [SULFA (SULFONAMIDE ANTIBIOTICS)] gabapentin [GABAPENTIN] AdvReac Mild ANGRY Verified 08/19/18 05:15 pregabalin [PREGABALIN] AdvReac Mild SWELLING Verified 08/19/18 05:15 HANDS/FEET Review of Systems Constitutional Constitutional: Reports system reviewed and no additional complaints, except as documented Cardiovascular Cardiovascular: Reports system reviewed and no additional complaints, except as documented Respiratory Respiratory: Reports system reviewed and no additional complaints, except as do cumented Gastrointestinal Gastrointestinal: Reports system reviewed and no additional complaints, except as documented Integumentary/Breasts Skin/Breast: Reports system reviewed and no additional complaints, except as documented Neurologic Neurologic: Reports system reviewed and no additional complaints, except as documented Hematologic/Lymphatic On Anticoagulants: No Patient History Medical History Anxiety disorder Chronic back pain Chronic interstitial cystitis Diabetes type 2, controlled HTN (hypertension) No pertinent family history Surgical History Status post insertion of brain-responsive neurostimulation device Social History household members: spouse lives independently: Yes caregiver/support person: No Smoking Status: Never smoker alcohol intake: never substance use type: does not use Smoking Status: Never smoker Substance Use Type: does not use and marijuana Exam Initial Vital Signs Initial Vital Signs: Vital Signs Temperature 98 F 10/15/22 23:52 Pulse Rate 122 H 10/15/22 23:52 Respiratory Rate 18 10/15/22 23:52 Blood Pressure 168/96 H 10/15/22 23:52 Pulse Oximetry 93 10/15/22 23:52 Oxygen Delivery Method 10/15/22 23:52 Const General: cooperative and healthy appearing HENMT Head: normal to inspection and normocephalic Resp Effort & Inspection: normal respiratory effort Cardio Rate: regular rate GI Inspection: normal to inspection Course Orders Ordered: ED Orders 10/15/22 23:55 EKG-12 Lead Stat Ondansetron HCl (Ondansetron 4 Mg Odt) 4 mg PO NOW PRN PRN Reason: Nausea And Vomiting Ondansetron HCl (Ondansetron 4 Mg/2 Ml Inj) 4 mg IV NOW PRN PRN Reason: Nausea And Vomiting Last Admin: 10/16/22 00:15 Dose: 4 mg Documented By: XIOMY Discontinued Medications Sodium Chloride (Normal Saline 0.9%) 1,000 mls @ 1,000 mls/hr IV BOLUS ONE Stop: 10/16/22 01:07 Last Infusion: 10/16/22 01:33 Dose: 0 mls/hr Documented By: Admin: 10/16/22 00:15 Dose: 1,000 mls/hr Documented By: XIOMY Metoclopramide HCl (Metoclopramide 10 Mg/2 Ml Inj) 10 mg IV NOW ONE Stop: 10/16/22 02:44 Last Admin: 10/16/22 02:57 Dose: 10 mg Documented By: XIOMY Ondansetron HCl (Ondansetron 4 Mg Odt Prepack) 1 bottle MISC SEEINSTR ONE Stop: 10/16/22 04:11 Vital Signs Vital signs: Vital Signs - 8 hr 10/15/22 23:52 10/16/22 00:21 10/16/22 00:30 Temperature 98 F Pulse Rate 122 H 100 H 94 H Respiratory Rate 18 24 21 Blood Pressure 168/96 H 152/90 H Pulse Oximetry 93 96 97 Oxygen Delivery Method Room Air 10/16/22 01:00 10/16/22 02:32 Temperature 99.2 F Pulse Rate 98 H 102 H Respiratory Rate 37 H 20 Blood Pressure 137/91 H Pulse Oximetry 94 95 Oxygen Delivery Method Room Air Room Air Medical Decision Making Lab Data Lab results reviewed: Yes I reviewed the patient's lab results. 10/15/22 00:07 10/15/22 00:07 Labs: Lab Results 10/15/22 10/15/22 Range/Units 00:07 00:07 WBC 11.3 H (4.5-11.0) X10^3/uL RBC 4.63 (4.0-5.2) X10^6/uL Hgb 13.8 (12.0-16.0) g/dL Hct 42.9 (36-46) % MCV 92.5 (80-100) fL MCH 29.8 (26-34) PG MCHC 32.3 (30-36) % RDW 13.7 (11.6-14.8) % Plt Count 482 H (150-400) X10^3/uL Neut % (Auto) 64.3 (50-75) % Lymph % (Auto) 24.8 L (25-40) % [place] % (Auto) 9.2 (3-14) % Eos % (Auto) 1.1 L (2-4) % Baso % (Auto) 0.6 (0-2) % Neut # (Auto) 7300 H (1234-4136) /uL Lymph # (Auto) 2800 (0781-3514) /uL [place] # (Auto) 1000 H (0-900) /uL Eos # (Auto) 100 (0-450) /uL Baso # (Auto) 100 (0-100) /uL Sodium 139 (137-145) mmol/L Potassium 3.1 L (3.4-5.1) mmol/L Chloride 98 (98-107) mmol/L Carbon Dioxide 24 (22-32) mmol/L BUN 9 (7-17) mg/dL Creatinine 0.74 (0.52-1.04) mg/dL Estimated GFR > 60 (>60) mL/min BUN/Creatinine Ratio 12.2 (6-22) Glucose 235 H (70-100) mg/dL Calcium 13.1 H* (8.4-10.2) mg/dL Total Bilirubin 0.9 (0.2-1.3) mg/dL AST 93 H (14-36) IU/L ALT 56 H (<35) IU/L Alkaline Phosphatase 50 (38-126) U/L Total Protein 8.9 H (6.3-8.2) g/dL Albumin 5.3 H (3.5-5.0) g/dL Globulin 3.6 (1.7-4.1) g/dL Albumin/Globulin Ratio 1.5 (1.0-2.8) Lipase 156 (23-300) U/L Point of Care Testing Test Results Negative Urine Dip Bedside Urine Glucose Negative Bedside Urine Bilirubin - Negative Bedside Urine Ketone - Negative Urine Specific [place] 1.015 Bedside Urine Occult Blood - Negative Bedside Urine pH 7.5 Bedside Urine Protein +++ 300 Bedside Urine Urobilinogen - Negative Bedside Urine Nitrite - Negative Bedside Urine Leukocytes - Negative Esterase Point of care testing: Point of Care Testing Test Results Negative Urine Dip Bedside Urine Glucose Negative Bedside Urine Bilirubin - Negative Bedside Urine Ketone - Negative Urine Specific [place] 1.015 Bedside Urine Occult Blood - Negative Bedside Urine pH 7.5 Bedside Urine Protein +++ 300 Bedside Urine Urobilinogen - Negative Bedside Urine Nitrite - Negative Bedside Urine Leukocytes - Negative Esterase MDM Narrative Medical decision making narrative: Patient's labs are unremarkable. Urinalysis does not show any signs of an infection. After treatment with antiemetics here in the ER she stated that she did feel somewhat better and she was able to tolerate a small amount of fluids. Given her presentation her exam and her labs feel that we can hold on any radiologic studies has by concern for an acute intra-abdominal surgical issue is low. No indication for antibiotics. Patient has had no diarrhea. Will discharge patient home with nausea medication and return precautions. She expressed understanding and agreement. Discharge Plan Departure Patient Disposition: Home Clinical Impression: Nausea and vomiting Instructions: Nausea and Vomiting-Adult Activity Restrictions/Additional Instructions: Continue to take all of your medications as directed. Use the nausea medication as needed. Be sure that your increasing your fluid intake. Start by drinking small amounts of fluid then increasing this as tolerated. Also recommend a bland diet you can advanced as tolerated. Return to the emergency department for new symptoms. Prescriptions: New ondansetron 4 mg tablet,disintegrating 4 mg PO Q8H PRN (Reason: nausea and vomiting) Qty: 10 0RF No Action Oxycodone/Acetaminophen (Percocet 5-325 MG Tablet) 1 tab PO HS Qty: 0 [ELIMIRON] 100 mg PO TID Qty: 0 MULTIVITAMIN (#MULTIPLE VITAMINS) 1 cap PO Q DAY Qty: 0 atenolol 50 MG tablet 50 mg PO QDAY Qty: 0 VITAMIN B COMPLEX (Vitamin B Complex) 1 tab PO QDAY Qty: 0 [IRON] Qty: 0 FENOFIBRATE NANOCRYSTALLIZED (TRIGLIDE) 100 mg PO BID Qty: 0 metformin [Glucophage] 500 MG tablet 500 mg PO BIDCC Qty: 0 Phenazopyridine Hydrochlorid (#PYRIDIUM) 200 mg PO PRN Qty: 0 Promethazine HCl (PHENERGAN) 25 mg PO PRN Qty: 0 tamsulosin [Flomax] 0.4 MG capsule,extended release 24hr 0.4 mg PO QHS Qty: 0 hydrochlorothiazide 25 MG tablet 25 mg PO QDAY Qty: 0 imipramine HCl 25 MG tablet 100 mg PO HS Qty: 0 cyclobenzaprine 10 MG tablet 10 mg PO QDAY Qty: 0 oxycodone 5 mg capsule 5 mg PO Q4-6H PRN (Reason: bladder/IC pain) Qty: 8 0RF belladonna alkaloids-opium 16.2-30 mg suppository 1 suppositor FL TID PRN (Reason: pain) Qty: 12 0RF Referrals: Mayra Edwards MD [Primary Care Provider] - Stand Alone Forms: Patient Portal/API
[2022-10-16 00:35] LABS: Alanine Aminotransferase 56 IU/L (<35); Albumin 5.3 g/dL (3.5-5.0); Albumin Globulin Ratio 1.5 (1.0-2.8); Alkaline Phosphatase 50 U/L (38-126); Aspartate Aminotransferase 93 IU/L (14-36); BUN Creatinine Ratio 12.2 (6-22); Bilirubin Total 0.9 mg/dL (0.2-1.3); Blood Urea Nitrogen 9 mg/dL (7-17); Carbon Dioxide 24 mmol/L (22-32); Chloride 98 mmol/L (98-107); Estimated Glomerular Filt Rate > 60 mL/min (>60); Globulin 3.6 g/dL (1.7-4.1); Glucose 235 mg/dL (70-100); HEMOLYSIS < 15 (0-50); Lipase 156 U/L (23-300); Potassium 3.1 mmol/L (3.4-5.1); Sodium 139 mmol/L (137-145); Total Protein 8.9 g/dL (6.3-8.2)
[2022-10-16 00:49] LABS: Calcium 13.1 mg/dL (8.4-10.2)
--- NOTE | 2022-10-16 02:38 | PC.NURSE ---
0255: Pt asked to try sips of water. Pt took a few sips and five minutes later, reported feeling nauseous. Pt did not vomit or dry heave. notified.
[2022-10-16] MEDS: METOCLOPRAMIDE 10 MG/2 ML INJ IV (02:57)
[2022-10-16] MEDS: ONDANSETRON 4 MG ODT PREPACK 1 BOTTLE MISC (04:20)
== END 2022-10-16 04:20 | disposition home or self-care (01) ==
PROVIDERS: Emergency Provider Emergency Medicine; Family Provider Family Medicine; PCP Family Medicine
DX: R11.2 Nausea with vomiting, unspecified (principal)
CPT/HCPCS: 36415; 80053; 81003; 81025; 83690; 85025; 96361; 96374; 96375; 99284; J2405; J2765

== ENCOUNTER 2022-10-17 16:01 | Emergency (ER) | payer OTHER, SELFPAY ==
[2022-10-17] VITALS (11 sets, daily range): BP systolic 105–147; BP diastolic 57–81; PULSE 109–122; RESP 20; TEMP 36.3; O2SAT 90–98; BMI 32.3
[2022-10-17 16:43] LABS: Add Manual Diff / Slide Review NO; Basophils Absolute Auto 0 /uL (0-100); Basophils Percent Auto 0.5 % (0-2); Eosinophils Absolute Auto 100 /uL (0-450); Eosinophils Percent Auto 1.8 % (2-4); Hematocrit 41.5 % (36-46); Lymphocytes Absolute Auto 1900 /uL (1100-4500); Mean Corpuscular HGB Conc 33.7 % (30-36); Mean Corpuscular Hemoglobin 30.7 PG (26-34); Mean Corpuscular Volume 91.1 fL (80-100); Monocytes Absolute Auto 600 /uL (0-900); Monocytes Percent Auto 7.1 % (3-14); Neutrophils Absolute Auto 5300 /uL (1500-7000); Neutrophils Percent Auto 66.6 % (50-75); Platelet Count 444 X10^3/uL (150-400); Red Blood Cell Count 4.56 X10^6/uL (4.0-5.2); Red Cell Distribution Width 13.7 % (11.6-14.8)
--- NOTE | 2022-10-17 16:46 | PC.NURSE ---
Addendum entered by Asuncion Frederick R.N. 10/17/22 16:47: Dr. Jeffrey long'kassandra ice chips. Pt's appears angry and is very rude to this nurse. Inquired as to source, he rolled his eyes and continued to be rude. Asked to be pleasant to staff. Original Note: Pt's requesting blankets and ice chips. Dr. Jeffrey long'kassandra ice =chi=
[2022-10-17 16:53] LABS: Alanine Aminotransferase 68 IU/L (<35); Albumin 5.1 g/dL (3.5-5.0); Albumin Globulin Ratio 1.4 (1.0-2.8); Alkaline Phosphatase 50 U/L (38-126); Aspartate Aminotransferase 113 IU/L (14-36); BUN Creatinine Ratio 22.1 (6-22); Bilirubin Total 0.9 mg/dL (0.2-1.3); Blood Urea Nitrogen 15 mg/dL (7-17); Calcium 10.8 mg/dL (8.4-10.2); Carbon Dioxide 22 mmol/L (22-32); Chloride 99 mmol/L (98-107); Estimated Glomerular Filt Rate > 60 mL/min (>60); Globulin 3.7 g/dL (1.7-4.1); Glucose 231 mg/dL (70-100); HEMOLYSIS 19 (0-50); Lipase 194 U/L (23-300); Potassium 3.2 mmol/L (3.4-5.1); Sodium 138 mmol/L (137-145); Total Protein 8.8 g/dL (6.3-8.2)
[2022-10-17] MEDS: SODIUM CHLORIDE 0.9% 1,000 ML 1000 ML IV (18:27)
--- NOTE | 2022-10-17 18:35 | ED_ITS ---
HPI - General Adult General Chief complaint: Abdominal Pain Stated complaint: Interstitial cystitis Time Seen by Provider: 10/17/22 17:48 Source: patient Mode of arrival: Ambulatory History of Present Illness HPI narrative: Patient is a 47-year-old female. Has a history of interstitial cystitis. I evaluated the patient here in the emergency department just over 24 hours ago for abdominal pain. She was subsequently discharged home. States after being discharged home she is had bladder spasms. Has had nausea and vomiting and unable to take her normal medications. No fevers. Related Data Home Medications Medication Instructions Recorded Confirmed atenolol 50 mg tablet 50 mg PO QDAY ##0 01/20/12 cyclobenzaprine 10 mg tablet 10 mg PO QDAY ##0 03/02/13 hydrochlorothiazide 25 mg tablet 25 mg PO QDAY ##0 03/02/13 imipramine HCl 25 mg tablet 100 mg PO HS ##0 03/02/13 metformin 500 mg tablet 500 mg PO BIDCC ##0 03/02/13 (Glucophage) tamsulosin 0.4 mg capsule (Flomax) 0.4 mg PO QHS ##0 03/02/13 Previous Rx's Medication Instructions Recorded belladonna alkaloids-opium 16.2 1 suppositor ND TID PRN pain #12 ea 08/19/18 mg-30 mg rectal suppository ondansetron 4 mg disintegrating 4 mg PO Q8H PRN nausea and 10/16/22 tablet vomiting #10 tabs Allergies Allergy/AdvReac Type Severity Reaction Status Date / Time nortriptyline [NORTRIPTYLINE] Allergy Mild HIVES Verified 10/17/22 16:22 Sulfa (Sulfonamide Allergy Mild RASH Verified 10/17/22 16:22 Antibiotics) [SULFA (SULFONAMIDE ANTIBIOTICS)] gabapentin [GABAPENTIN] AdvReac Mild ANGRY Verified 10/17/22 16:22 pregabalin [PREGABALIN] AdvReac Mild SWELLING Verified 10/17/22 16:22 HANDS/FEET Review of Systems Constitutional Constitutional: Reports system reviewed and no additional complaints, except as documented Gastrointestinal Gastrointestinal: Reports system reviewed and no additional complaints, except as documented Genitourinary Genitourinary: Reports system reviewed and no additional complaints, except as documented Integumentary/Breasts Skin/Breast: Reports system reviewed and no additional complaints, except as documented Neurologic Neurologic: Reports system reviewed and no additional complaints, except as documented Patient History Medical History Anxiety disorder Chronic back pain Chronic interstitial cystitis Diabetes type 2, controlled HTN (hypertension) No pertinent family history Surgical History Status post insertion of brain-responsive neurostimulation device Social History household members: spouse lives independently: Yes caregiver/support person: No Smoking Status: Never smoker alcohol intake: never substance use type: does not use Smoking Status: Never smoker Substance Use Type: does not use and marijuana Exam Initial Vital Signs Initial Vital Signs: Vital Signs Temperature 97.4 F L 10/17/22 16:15 Pulse Rate 122 H 10/17/22 16:15 Respiratory Rate 20 10/17/22 16:15 Blood Pressure 127/68 10/17/22 16:15 Pulse Oximetry 98 10/17/22 16:15 Oxygen Delivery Method 10/17/22 16:15 HENMT Head: normal to inspection and normocephalic Resp Effort & Inspection: normal respiratory effort Cardio Rate: regular rate GI Inspection: normal to inspection Palpation: tender Skin General: no rashes or lesions noted Neuro General: patient alert, patient awake and moves all extremities Extrem General: capillary refill normal Course Orders Ordered: ED Orders 10/17/22 16:32 Complete Blood Count AUTO DIFF Stat Comprehensive Metabolic Panel Stat Lipase Stat Discontinued Medications Hydromorphone HCl (Hydromorphone 1 Mg Inj) 1 mg IV NOW ONE Stop: 10/17/22 18:37 Last Admin: 10/17/22 19:01 Dose: 1 mg Documented By: NR Sodium Chloride (Normal Saline 0.9%) 1,000 mls @ 1,000 mls/hr IV BOLUS ONE Stop: 10/17/22 18:52 Last Infusion: 10/17/22 19:39 Dose: 0 mls/hr Documented By: Admin: 10/17/22 18:27 Dose: 1,000 mls/hr Documented By: NR Lorazepam (Lorazepam 2 Mg/Ml Inj) 1 mg IV NOW ONE Stop: 10/17/22 18:37 Last Admin: 10/17/22 18:55 Dose: 1 mg Documented By: NR Metoclopramide HCl (Metoclopramide 10 Mg/2 Ml Inj) 10 mg IV NOW ONE Stop: 10/17/22 20:27 Last Admin: 10/17/22 20:35 Dose: 10 mg Documented By: ANDREW Ondansetron HCl (Ondansetron 4 Mg/2 Ml Inj) 4 mg IV NOW PRN PRN Reason: Nausea And Vomiting Last Admin: 10/17/22 19:59 Dose: 4 mg Documented By: ANDREW Vital Signs Vital signs: Vital Signs - 8 hr 10/17/22 17:54 10/17/22 18:26 10/17/22 18:26 Pulse Rate 113 H Blood Pressure 112/70 Pulse Oximetry 95 95 10/17/22 18:30 10/17/22 18:59 10/17/22 18:59 Pulse Rate 113 H 112 H Blood Pressure 105/73 Pulse Oximetry 92 92 10/17/22 19:00 10/17/22 19:00 10/17/22 19:30 Pulse Rate 110 H Blood Pressure 108/57 L 119/67 Pulse Oximetry 91 10/17/22 19:30 10/17/22 20:00 10/17/22 20:01 Pulse Rate 119 H 111 H 109 H Blood Pressure Pulse Oximetry 90 L 94 94 10/17/22 20:01 10/17/22 20:30 10/17/22 20:30 Pulse Rate 110 H Blood Pressure 130/81 136/78 Pulse Oximetry 91 10/17/22 21:00 10/17/22 21:00 Pulse Rate 120 H Blood Pressure 147/80 H Pulse Oximetry 90 L Medical Decision Making Medical Records Medical records reviewed: Yes I reviewed the patient's medical records. Lab Data Lab results reviewed: Yes I reviewed the patient's lab results. 10/17/22 16:32 10/17/22 16:32 Labs: Lab Results 10/17/22 10/17/22 Range/Units 16:32 16:32 WBC 8.0 (4.5-11.0) X10^3/uL RBC 4.56 (4.0-5.2) X10^6/uL Hgb 14.0 (12.0-16.0) g/dL Hct 41.5 (36-46) % MCV 91.1 (80-100) fL MCH 30.7 (26-34) PG MCHC 33.7 (30-36) % RDW 13.7 (11.6-14.8) % Plt Count 444 H (150-400) X10^3/uL Neut % (Auto) 66.6 (50-75) % Lymph % (Auto) 24.0 L (25-40) % [place] % (Auto) 7.1 (3-14) % Eos % (Auto) 1.8 L (2-4) % Baso % (Auto) 0.5 (0-2) % Neut # (Auto) 5300 (8285-2858) /uL Lymph # (Auto) 1900 (3994-3674) /uL [place] # (Auto) 600 (0-900) /uL Eos # (Auto) 100 (0-450) /uL Baso # (Auto) 0 (0-100) /uL Sodium 138 (137-145) mmol/L Potassium 3.2 L (3.4-5.1) mmol/L Chloride 99 (98-107) mmol/L Carbon Dioxide 22 (22-32) mmol/L BUN 15 (7-17) mg/dL Creatinine 0.68 (0.52-1.04) mg/dL Estimated GFR > 60 (>60) mL/min BUN/Creatinine Ratio 22.1 H (6-22) Glucose 231 H (70-100) mg/dL Calcium 10.8 H (8.4-10.2) mg/dL Total Bilirubin 0.9 (0.2-1.3) mg/dL AST 113 H (14-36) IU/L ALT 68 H (<35) IU/L Alkaline Phosphatase 50 (38-126) U/L Total Protein 8.8 H (6.3-8.2) g/dL Albumin 5.1 H (3.5-5.0) g/dL Globulin 3.7 (1.7-4.1) g/dL Albumin/Globulin Ratio 1.4 (1.0-2.8) Lipase 194 (23-300) U/L Urine Dip Bedside Urine Glucose 100 mg/dl Bedside Urine Bilirubin - Negative Bedside Urine Ketone +/- 5 Urine Specific [place] 1.025 Bedside Urine Occult Blood - Negative Bedside Urine pH 6.0 Bedside Urine Protein +++ 300 Bedside Urine Urobilinogen - Negative Bedside Urine Nitrite - Negative Bedside Urine Leukocytes - Negative Esterase Point of care testing: Urine Dip Bedside Urine Glucose 100 mg/dl Bedside Urine Bilirubin - Negative Bedside Urine Ketone +/- 5 Urine Specific [place] 1.025 Bedside Urine Occult Blood - Negative Bedside Urine pH 6.0 Bedside Urine Protein +++ 300 Bedside Urine Urobilinogen - Negative Bedside Urine Nitrite - Negative Bedside Urine Leukocytes - Negative Esterase MDM Narrative Medical decision making narrative: Patient's presenting symptoms today are consistent with her history of intersti tial cystitis. She is no signs of any new infection. Urinalysis shows no urinary tract infection. She is afebrile. No indication for repeat radiologic studies. Patient reports improvement of symptoms after medications provided during this visit. Will discharge patient home. Was given return precautions. Discharge Plan Departure Patient Disposition: Home Clinical Impression: Interstitial cystitis Instructions: DI for Interstitial Cystitis Activity Restrictions/Additional Instructions: I recommend that you continue to take all of your medications as directed. You will need to talk with your primary doctor about long-term pain control. I recommend that you follow-up with a urologist. If you do not have a urologist you can contact the urologist here at this hospital at the number provided below. Prescriptions: No Action atenolol 50 MG tablet 50 mg PO QDAY Qty: 0 metformin [Glucophage] 500 MG tablet 500 mg PO BIDCC Qty: 0 tamsulosin [Flomax] 0.4 MG capsule,extended release 24hr 0.4 mg PO QHS Qty: 0 hydrochlorothiazide 25 MG tablet 25 mg PO QDAY Qty: 0 imipramine HCl 25 MG tablet 100 mg PO HS Qty: 0 cyclobenzaprine 10 MG tablet 10 mg PO QDAY Qty: 0 belladonna alkaloids-opium 16.2-30 mg suppository 1 suppositor ND TID PRN (Reason: pain) Qty: 12 0RF ondansetron 4 mg tablet,disintegrating 4 mg PO Q8H PRN (Reason: nausea and vomiting) Qty: 10 0RF Referrals: Sha García MD [Physician] - Provider,Madhav BROWN [Primary Care Provider] - Stand Alone Forms: Patient Portal/API
[2022-10-17] MEDS: LORazepam 2 MG/ML INJ 1 MG IV (18:55)
[2022-10-17] MEDS: HYDROMORPHONE 1 MG INJ IV (19:01)
[2022-10-17] MEDS: ONDANSETRON 4 MG/2 ML INJ IV (19:59)
[2022-10-17] MEDS: METOCLOPRAMIDE 10 MG/2 ML INJ IV (20:35)
--- NOTE | 2022-10-17 21:09 | PC.NURSE ---
pt states the reglan is starting to work, pt able to rest
== END 2022-10-17 21:38 | disposition home or self-care (01) ==
PROVIDERS: Emergency Medicine; Emergency Provider Emergency Medicine; Family Provider Family Medicine
DX: N30.10 Interstitial cystitis (chronic) without hematuria (principal); R11.2 Nausea with vomiting, unspecified
CPT/HCPCS: 36415; 80053; 81003; 83690; 85025; 96361; 96374; 96375; 99284; J1170; J2060; J2405; J2765

== ENCOUNTER 2023-02-11 17:58 | Emergency (ER) | payer OTHER, SELFPAY ==
[2023-02-11 18:05] VITALS: BP 115/76; PULSE 106; RESP 18; TEMP 36.3; O2SAT 94; BMI 31.1
--- NOTE | 2023-02-11 20:02 | ED.RECABL ---
HPI - Recheck/Abnormal Lab/Rx General Chief Complaint: Recheck/Abnormal Lab/Rx Stated Complaint: Surgery on Thursday, tongue is numb Time Seen by Provider: 02/11/23 19:43 Source: patient and family Mode of arrival: Ambulatory History of Present Illness HPI narrative: Patient is a 48-year-old female who on Thursday underwent surgery in order to have a nerve stimulator replaced in her lower back. Since that time she states that she has had numbness that has gone down the send her of her tongue. She is not have any problems breathing. No problems swallowing. No problems talking. They had a follow-up today. They talked with the provider who placed the stimulator who stated that this was not related to her surgery and that she should come to the emergency department. She reports no other symptoms. Related Data Home Medications Medication Instructions Recorded Confirmed atenolol 50 mg tablet 50 mg PO QDAY ##0 01/20/12 cyclobenzaprine 10 mg tablet 10 mg PO QDAY ##0 03/02/13 hydrochlorothiazide 25 mg tablet 25 mg PO QDAY ##0 03/02/13 imipramine HCl 25 mg tablet 100 mg PO HS ##0 03/02/13 metformin 500 mg tablet 500 mg PO BIDCC ##0 03/02/13 (Glucophage) tamsulosin 0.4 mg capsule (Flomax) 0.4 mg PO QHS ##0 03/02/13 Previous Rx's Medication Instructions Recorded belladonna alkaloids-opium 16.2 1 suppositor HI TID PRN pain #12 ea 08/19/18 mg-30 mg rectal suppository ondansetron 4 mg disintegrating 4 mg PO Q8H PRN nausea and 10/16/22 tablet vomiting #10 tabs Allergies Allergy/AdvReac Type Severity Reaction Status Date / Time nortriptyline [NORTRIPTYLINE] Allergy Mild HIVES Verified 10/17/22 16:22 Sulfa (Sulfonamide Allergy Mild RASH Verified 10/17/22 16:22 Antibiotics) [SULFA (SULFONAMIDE ANTIBIOTICS)] gabapentin [GABAPENTIN] AdvReac Mild ANGRY Verified 10/17/22 16:22 pregabalin [PREGABALIN] AdvReac Mild SWELLING Verified 10/17/22 16:22 HANDS/FEET Review of Systems ENT Ears, Nose, Mouth, and Throat: Reports system reviewed and no additional complaints, except as documented Integumentary/Breasts Skin/Breast: Reports system reviewed and no additional complaints, except as documented Neurologic Neurologic: Reports system reviewed and no additional complaints, except as documented Hematologic/Lymphatic On Anticoagulants: No Patient History Medical History Anxiety disorder Chronic back pain Chronic interstitial cystitis Diabetes type 2, controlled HTN (hypertension) No pertinent family history Surgical History Status post insertion of brain-responsive neurostimulation device Social History household members: spouse lives independently: Yes caregiver/support person: No Smoking Status: Never smoker alcohol intake: never substance use type: does not use Smoking Status: Never smoker Substance Use Type: marijuana Exam Initial Vital Signs Initial Vital Signs: Vital Signs Temperature 97.4 F L 02/11/23 18:05 Pulse Rate 106 H 02/11/23 18:05 Respiratory Rate 18 02/11/23 18:05 Blood Pressure 115/76 02/11/23 18:05 Pulse Oximetry 94 02/11/23 18:05 Oxygen Delivery Method Room Air 02/11/23 18:05 HENMT Head: normal to inspection and normocephalic Face and sinus: normal facial exam Mouth: oral mucosae normal, tongue normal and moist mucous membranes Throat: posterior oropharynx normal Neuro Gait: normal gait Motor: muscle tone normal throughout Other: Patient reports decreased sensation to touch going down the center of her tongue. The lateral aspects of her tongue in the posterior aspects of her tongue are normal. Posterior oropharynx is normal feeling. Her buccal mucosa is normal feeling. She also reports decreased sensation bilaterally to light touch of her face however the rest of her cranial nerves are unremarkable. Course Vital Signs Vital signs: Vital Signs - 8 hr 02/11/23 18:05 02/11/23 20:10 Temperature 97.4 F L Pulse Rate 106 H 100 H Respiratory Rate 18 16 Blood Pressure 115/76 115/63 Pulse Oximetry 94 94 Oxygen Delivery Method Room Air Room Air MDM - Recheck/Abnormal Lab/Rx MDM Narrative Medical decision making narrative: The subjective findings are decreased sensation to light touch that goes down the center of her tongue. There is no motor involvement. She also reports decreased sensation to bilateral face but also no motor involvement. It is somewhat of a abnormal picture because the tenderness seems to encompass both the posterior aspect of the tongue in the anterior aspect. It also does not involve the lateral aspects. I have low suspicion for CVA. Low suspicion for TIA. Low suspicion that this is related to the nerve stimulator that was placed in her lower back earlier this week. This potentially could have been a positional issue as she was face down or potentially even issues with anesthesia she most likely was either intubated or had an LMA. No further workup required here in the emergency department. She was given return precautions. She expressed understanding and agreement. Discharge Plan Departure Patient Disposition: Home Clinical Impression: Paresthesia of tongue Activity Restrictions/Additional Instructions: I recommend that you follow all of the postoperative instructions given to you by the surgeon and keep all of your scheduled medical appointments. Return to the emergency department for new or worsening symptoms. Prescriptions: No Action atenolol 50 MG tablet 50 mg PO QDAY Qty: 0 metformin [Glucophage] 500 MG tablet 500 mg PO BIDCC Qty: 0 tamsulosin [Flomax] 0.4 MG capsule,extended release 24hr 0.4 mg PO QHS Qty: 0 hydrochlorothiazide 25 MG tablet 25 mg PO QDAY Qty: 0 imipramine HCl 25 MG tablet 100 mg PO HS Qty: 0 cyclobenzaprine 10 MG tablet 10 mg PO QDAY Qty: 0 belladonna alkaloids-opium 16.2-30 mg suppository 1 suppositor HI TID PRN (Reason: pain) Qty: 12 0RF ondansetron 4 mg tablet,disintegrating 4 mg PO Q8H PRN (Reason: nausea and vomiting) Qty: 10 0RF Referrals: ProviderMadhav [Primary Care Provider] - Stand Alone Forms: Patient Portal/API
[2023-02-11 20:10] VITALS: BP 115/63; PULSE 100; RESP 16; O2SAT 94
== END 2023-02-11 20:11 | disposition home or self-care (01) ==
PROVIDERS: Emergency Provider Emergency Medicine; Family Provider Family Medicine
DX: R20.2 Paresthesia of skin (principal)
CPT/HCPCS: 99281

== ENCOUNTER → 2024-02-09 12:23 | Outpatient (CLI) | payer OTHER, SELFPAY ==
--- NOTE | 2024-02-09 12:25 | DI.MRI.S_ITS ---
PROCEDURE: MR PELVIS WO/W CON INDICATIONS: Pelvic and perineal pain TECHNIQUE: Coronal HASTE, sagittal breath-hold T2 FSE; axial T1 FSE with and without fat saturation through the pelvis. Optional long- and short-axis uterine nonbreath-hold T2 FSE through the uterus. Sagittal or axial dynamic VIBE during administration of contrast. Post-contrast axial or coronal VIBE/2-D FLASH with fat saturation from the iliac crests to the symphysis. Optional diffusion weighted imaging and ADC may be performed. COMPARISON: None. FINDINGS: Image quality: Diagnostic Lower abdomen: No small bowel obstruction. No pathologic ascites. Bladder: No suspicious enhancement. Reproductive organs: Marked endometrial thickening measuring 2.8 centimeters with diffusion restriction. This signal abnormality extends to the upper cervix. The junctional zone is unremarkable. This area is hypo enhancing and relative to the myometrium. Possible 2.2 centimeter right follicular cyst. 5.1 x 5.9 centimeter left ovarian cyst, without enhancing soft tissue nodule on postcontrast images Rectum: Unremarkable Vessels and lymph nodes: No pathologic lymph nodes by size criteria within the pelvis Pelvic wall: Trace pelvic free fluid. Pelvic wall is unremarkable. Bones: No acute or suspicious osseous finding. Degenerative changes are present. IMPRESSION: Diffusion restricting marked endometrial thickening is suspicious for carcinoma. The signal abnormality extends to the upper cervix. 5.9 centimeter left ovarian cysts, without suspicious nodular components. Gynecologic follow-up recommended. This exam was marked in PACS for communication and follow-up. Dictated by: Pietro Triplett M.D. on 02/09/2024 at 14:07 Approved by: Pietro Triplett M.D. on 02/09/2024 at 14:13
== END ==
PROVIDERS: Family Provider Family Medicine; Referring Provider Nurse Practitioner Family; Visit Provider Nurse Practitioner Family
DX: N83.202 Unspecified ovarian cyst, left side (principal); R10.2 Pelvic and perineal pain; R93.89 Abnormal findings on diagnostic imaging of other specified body structures
CPT/HCPCS: 72197; A9579

== ENCOUNTER 2024-09-13 14:19 | Emergency (ER) | payer OTHER, SELFPAY ==
[2024-09-13 14:39] VITALS: BP 140/82; PULSE 115; RESP 18; TEMP 37.1; O2SAT 96; BMI 28.7
--- NOTE | 2024-09-13 14:43 | DI.RAD.S_ITS ---
PROCEDURE: XR KNEE RT 3V INDICATIONS: twist/fall TECHNIQUE: 3 views of the knee were acquired. COMPARISON: None. FINDINGS: Bones: Questionable irregularity of the tibial spine. No suspicious bony lesions. Soft tissues: Small joint effusion. No suspicious soft tissue calcifications. IMPRESSION: Questionable irregularity of the tibial spine, a minimally displaced fracture is not excluded. Small joint effusion. Dictated by: Tyrone Richardson M.D. on 09/13/2024 at 16:16 Approved by: Tyrone Richardson M.D. on 09/13/2024 at 16:17
--- NOTE | 2024-09-13 16:42 | DI.CT.S_ITS ---
PROCEDURE: CT LE RT WO CON INDICATIONS: ?tibial fx TECHNIQUE: Noncontrast 1-1.5 mm axial sections acquired from the distal femur to subtalar joint, with coronal and sagittal reformats. COMPARISON: [facility], CR, XR KNEE RT 3V, 09/13/2024, 15:01. FINDINGS: Image quality: Excellent. Bones: Alignment of right lower leg is anatomic. No acute fracture or dislocation. Corticated calcification adjacent to tip of medial tibial spine is seen suggestive of old avulsion injury. Mild tricompartmental osteoarthritis in right knee is seen. No suspicious intraosseous lesion. Soft tissues: Small to moderate suprapatellar joint effusion is seen. No calcified intra-articular loose bodies. There is no soft tissue mass or drainable fluid collection. No abnormal soft tissue calcifications. No subcutaneous emphysema. No full-thickness muscle or tendon rupture. IMPRESSION: 1. No acute lower leg fracture or dislocation. Likely old avulsion injury involving tip of medial tibial spine . No suspicious bony lesions. 2. Small to moderate suprapatellar joint effusion. No gross left lower leg soft tissue abnormalities. Dictated by: Davin Chen M.D. on 09/13/2024 at 17:07 Approved by: Davin Chen M.D. on 09/13/2024 at 17:12
[2024-09-13] MEDS: OXYCODONE/ACETAMINOPHEN 5/325 TABLET 1 TAB PO (16:59)
--- NOTE | 2024-09-13 17:18 | ED_ITS ---
HPI - Extremity Injury (Lower) <Curtis Ford PA-C - Last Filed: 09/13/24 18:55> General Chief Complaint: Extremity Injury, Lower Stated Complaint: knee px Time Seen by Provider: 09/13/24 16:41 Source: patient Mode of arrival: Wheelchair History of Present Illness HPI Narrative: 49-year-old female presents to the ED status post a right knee injury sustained just prior to arrival today. Patient states that she has been having some right knee issues since June 2024 when they had a big move. Today, patient stepped in a way that caused her right knee to twist, causing pain. Patient is not able to bear weight and walk. No new numbness, tingling, weakness since the injury. Related Data Home Medications Medication Instructions Recorded Confirmed cyclobenzaprine 10 mg tablet 10 mg PO QDAY ##0 03/02/13 03/02/24 hydrochlorothiazide 25 mg tablet 25 mg PO QDAY ##0 03/02/13 03/02/24 imipramine HCl 25 mg tablet 100 mg PO HS ##0 03/02/13 03/02/24 metformin 500 mg tablet 500 mg PO BIDCC ##0 03/02/13 03/02/24 (Glucophage) tamsulosin 0.4 mg capsule (Flomax) 0.4 mg PO QHS ##0 03/02/13 03/02/24 citalopram 20 mg tablet 20 mg PO DAILY 03/02/24 03/02/24 clobetasol 0.05 % topical cream 1 applic topical DAILY 03/02/24 03/02/24 desonide 0.05 % topical cream 1 applic topical DAILY 03/02/24 03/02/24 fenofibrate 54 mg tablet mg PO 03/02/24 03/02/24 fluocinonide 0.05 % topical 1 applic topical BID 03/02/24 03/02/24 ointment fluoride (sodium) 1.1 % dental applic PO 03/02/24 03/02/24 cream (PreviDent 5000 Plus) losartan 25 mg tablet 25 mg PO DAILY 03/02/24 03/02/24 metformin 1,000 mg tablet 1,000 mg PO BID 03/02/24 03/02/24 oxybutynin chloride 5 mg 5 mg PO DAILY 03/02/24 03/02/24 tablet,extended release 24 hr pentosan polysulfate sodium 100 mg 100 mg PO 3XD 03/02/24 03/02/24 capsule (Elmiron) phenazopyridine 100 mg tablet mg PO 03/02/24 03/02/24 pimecrolimus 1 % topical cream applic topical 03/02/24 03/02/24 promethazine 25 mg tablet 25 mg PO Q8H PRN 03/02/24 03/02/24 Previous Rx's Medication Instructions Recorded medroxyprogesterone 10 mg tablet 20 mg (2 x 10 mg) PO DAILY #60 tabs 03/09/24 (Provera) Allergies Allergy/AdvReac Type Severity Reaction Status Date / Time nortriptyline [NORTRIPTYLINE] Allergy Mild HIVES Verified 03/02/24 10:57 Sulfa (Sulfonamide Allergy Mild RASH Verified 03/02/24 10:57 Antibiotics) [SULFA (SULFONAMIDE ANTIBIOTICS)] gabapentin [GABAPENTIN] AdvReac Mild ANGRY Verified 03/02/24 10:57 pregabalin [PREGABALIN] AdvReac Mild SWELLING Verified 03/02/24 10:57 HANDS/FEET Review of Systems <Curtis Ford PA-C - Last Filed: 09/13/24 18:55> Constitutional Constitutional: Denies chills, Denies fatigue, Denies fever(s), Denies frequent falls, Denies lethargy and Denies weakness Eyes Eyes: Denies change in vision, Denies eye discharge, Denies irritation and Denies loss of vision ENT Ears, Nose, Mouth, and Throat: Denies change in voice, Denies dizziness, Denies neck pain, Denies sore throat and Denies throat swelling Cardiovascular Cardiovascular: Denies chest pain, Denies irregular heart rhythm, Denies lightheadedness, Denies palpitations, Denies dyspnea, Denies dyspnea on exertion and Denies orthopnea Respiratory Respiratory: Denies cough, Denies dyspnea, Denies dyspnea on exertion and Denies wheezing Gastrointestinal Gastrointestinal: Denies abdominal pain, Denies change in bowel habits, Denies diarrhea, Denies nausea and Denies vomiting Musculoskeletal Musculoskeletal: Denies neck pain and Denies numbness Comments: Right knee pain and swelling Integumentary/Breasts Skin/Breast: Denies pruritus, Denies erythema, Denies rash and Denies wounds Neurologic Neurologic: Denies behavioral changes, Denies confusion, Denies dizziness, Denies frequent falls, Denies loss of vision, Denies numbness and Denies weakness Psychiatric Psychiatric: Denies anxiety, Denies behavioral changes, Denies confusion, Denies depression, Denies homicidal ideation and Denies suicidal ideation Endocrine Endocrine: Denies fatigue, Denies flushing and Denies palpitations Hematologic/Lymphatic Hematologic/Lymphatic: Denies easy bruising Allergic/Immunologic Allergic/Immunologic: Denies urticaria, Denies throat swelling and Denies wheezing Patient History <Curtis Ford PA-C - Last Filed: 09/13/24 18:55> Medical History (Updated 09/13/24 @ 17:28 by Curtis Ford PA-C) Endometrioid adenocarcinoma of uterus Abnormal MRI, pelvis Abnormal uterine bleeding (AUB) Anxiety disorder No pertinent family history Chronic interstitial cystitis HTN (hypertension) Diabetes type 2, controlled Chronic back pain Surgical History Status post insertion of brain-responsive neurostimulation device Social History household members: spouse lives independently: Yes caregiver/support person: No Smoking Status: Never smoker alcohol intake: never substance use type: does not use Smoking Status: Never smoker Exam <Curtis Ford PA-C - Last Filed: 09/13/24 18:55> Narrative Exam Narrative: Const General:?cooperative, healthy appearing and comfortable [facility] Head:?normal to inspection Ears:?hearing grossly normal bilaterally Nose:?external nose normal Face and sinus:?normal facial exam and sinuses nontender Mouth:?oral mucosae normal Throat:?posterior oropharynx normal Eyes General:?appearance normal, both eyes and all related structures Neck Neck:?normal visual inspection and no lymphadenopathy noted Resp Effort & Inspection:?normal respiratory effort Auscultation:?clear to auscultation bilaterally Cardio Rate:?regular rate Rhythm:?regular rhythm Musculoskeletal There is some swelling and tenderness of the right knee. Strength and sensation is intact. There is full range of motion. Patient is unable to bear weight and walk. Neurovascularly intact. Neuro General:?patient alert, patient awake and patient oriented x3 Initial Vital Signs Initial Vital Signs: Vital Signs Temperature 98.7 F 09/13/24 14:39 Pulse Rate 115 H 09/13/24 14:39 Respiratory Rate 18 09/13/24 14:39 Blood Pressure 140/82 09/13/24 14:39 Pulse Oximetry 96 09/13/24 14:39 Oxygen Delivery Method Room Air 09/13/24 14:39 <Erik Murphy MD - Last Filed: 09/14/24 07:34> Initial Vital Signs Initial Vital Signs: Vital Signs Temperature 98.7 F 09/13/24 14:39 Pulse Rate 115 H 09/13/24 14:39 Respiratory Rate 18 09/13/24 14:39 Blood Pressure 140/82 09/13/24 14:39 Pulse Oximetry 96 09/13/24 14:39 Oxygen Delivery Method Room Air 09/13/24 14:39 Course <Curtis Ford PA-C - Last Filed: 09/13/24 18:55> Orders Ordered: Discontinued Medications Oxycodone/Acetaminophen (Oxycodone/Acetaminophen 5/325 Tablet) 1 tab PO NOW ONE Stop: 09/13/24 16:46 Last Admin: 09/13/24 16:59 Dose: 1 tab Documented By: MPO Vital Signs Vital signs: Vital Signs - 8 hr 09/13/24 14:39 Temperature 98.7 F Pulse Rate 115 H Respiratory Rate 18 Blood Pressure 140/82 Pulse Oximetry 96 Oxygen Delivery Method Room Air <Erik Murphy MD - Last Filed: 09/14/24 07:34> Orders Ordered: Discontinued Medications Oxycodone/Acetaminophen (Oxycodone/Acetaminophen 5/325 Tablet) 1 tab PO NOW ONE Stop: 09/13/24 16:46 Last Admin: 09/13/24 16:59 Dose: 1 tab Documented By: MPO Vital Signs Vital signs: Vital Signs - 8 hr 09/13/24 14:39 Temperature 98.7 F Pulse Rate 115 H Respiratory Rate 18 Blood Pressure 140/82 Pulse Oximetry 96 Oxygen Delivery Method Room Air MDM - Extremity Injury (Lower) <Curtis Ford PA-C - Last Filed: 09/13/24 18:55> MDM Narrative Medical decision making narrative: 49-year-old female presents to the ED status post a right knee injury sustained just prior to arrival today. Concern for fracture/dislocation versus musculoskeletal sprain/strain versus meniscus injury versus other. X-ray was obtained which shows a questionable irregularity of the tibial spine. CT lower extremity was obtained to further characterize. CT confirms no acute lower leg fracture or dislocation. Likely old avulsion injury involving tip of medial tibial spine. No suspicious bony lesions. There is a small to moderate suprapatellar joint effusion. No gross left lower leg soft tissue abnormalities. Discussed findings with patient. Recommend supportive care with knee brace, heat/ice, crutches, elevation, rest, Tylenol, ibuprofen, lidocaine patches. Recommend follow-up with PCP if symptoms do not improve over the next few days. ED return precautions discussed with patient. Patient verbalized understanding. Medical records reviewed: Yes Discharge Plan Departure Patient Disposition: Home Clinical Impression: Knee pain Qualifiers: Chronicity: acute Laterality: right Qualified Code(s): M25.561 - Pain in right knee Instructions: DI for Knee Pain Activity Restrictions/Additional Instructions: You were evaluated in the ED today for right-sided knee pain. Your your CT scan confirmed that you do not have any fractures or dislocations. It is likely that you have a soft tissue injury which could be either a ligament or the meniscus that is injured. These types of injuries can spontaneously heal over the next several days with ice, heat, knee brace, ibuprofen, Tylenol, elevation, rest. You are being provided crutches to get around. Please follow-up with your PCP for further evaluation if your knee does not improve over the next few days. Return to the ED if you have worsening symptoms, tingling, numbness, weakness. Prescriptions: No Action metformin [Glucophage] 500 MG tablet 500 mg PO BIDCC Qty: 0 tamsulosin [Flomax] 0.4 MG capsule,extended release 24hr 0.4 mg PO QHS Qty: 0 hydrochlorothiazide 25 MG tablet 25 mg PO QDAY Qty: 0 imipramine HCl 25 MG tablet 100 mg PO HS Qty: 0 cyclobenzaprine 10 MG tablet 10 mg PO QDAY Qty: 0 fenofibrate 54 mg tablet PO Elmiron 100 mg capsule 100 mg PO 3XD oxybutynin chloride 5 mg tablet extended release 24hr 5 mg PO DAILY losartan 25 mg tablet 25 mg PO DAILY promethazine 25 mg tablet 25 mg PO Q8H PRN metformin 1,000 mg tablet 1,000 mg PO BID citalopram 20 mg tablet 20 mg PO DAILY phenazopyridine 100 mg tablet PO pimecrolimus 1 % cream topical fluoride (sodium) [PreviDent 5000 Plus] 1.1 % cream PO fluocinonide 0.05 % ointment 1 applic topical BID desonide 0.05 % cream 1 applic topical DAILY clobetasol 0.05 % cream 1 applic topical DAILY medroxyprogesterone [Provera] 10 mg tablet 20 mg PO DAILY Qty: 60 0RF Referrals: Provider,Madhav BROWN [Primary Care Provider] - Stand Alone Forms: Patient Portal/API/Survey ED Sign-out <Erik Murphy MD - Last Filed: 09/14/24 07:34> Cosign ED Attending Cosignature Attestation: I was immediately available in the department for consultation. ?This documentation has been reviewed and I agree with assessment and plan. Supervised by Erik Murphy MD
== END 2024-09-13 17:41 | disposition home or self-care (01) ==
PROVIDERS: Emergency Provider Student in an Organized Health Care Education/Training Program; Family Provider Family Medicine
DX: M25.561 Pain in right knee (principal); X50.1XXA Overexertion from prolonged static or awkward postures, initial encounter
CPT/HCPCS: 73562; 73700; 99283

== ENCOUNTER → 2024-10-04 15:24 | Outpatient (CLI) | payer OTHER, SELFPAY ==
--- NOTE | 2024-10-04 15:26 | DI.MRI.S_ITS ---
PROCEDURE: MR KNEE RT WO CON INDICATIONS: RT KNEE PAIN TECHNIQUE: Noncontrast sagittal PD fast spin echo and T2 fast spin echo with fat saturation, sagittal 3-D FLASH with fat saturation; coronal T1 spin echo and PD fast spin echo with fat saturation, and axial PD fast spin echo with fat saturation through the knee. COMPARISON: [facility], CR, XR KNEE RT 3V, 09/13/2024, 15:01. FINDINGS: Image quality: Excellent. Menisci: Medial extrusion of the medial meniscus is present. Linear horizontal and amorphous high signal intensity within the inner, middle, and peripheral thirds of the medial meniscal body, demonstrating superior and inferior articular surface extension, indicating complex tearing. Lateral meniscus is intact. Cruciate ligaments: The anterior and posterior cruciate ligaments appear intact. Medial structures: There is moderate T2 signal elevation surrounding the medial collateral ligament which demonstrates partial-thickness tearing. Visualized portions of the pes anserinus tendons appear normal. No abnormal bursal fluid. Lateral structures: The lateral collateral ligament, long and short heads of the biceps femoris tendon appear intact. The popliteus tendon appears normal. Iliotibial band appears normal. Anterior structures: The quadriceps and patellar tendons appear intact. Patellar alignment is normal. No femoral trochlear dysplasia or ventral trochlear prominence. No edema in the infrapatellar fat pad. Bones and cartilage: No bone marrow contusions or fractures. Moderate tricompartmental periarticular osteophyte formation is present. Severe articular cartilage loss diffusely overlies the weight-bearing aspects of the medial femoral condyle and medial tibial plateau. Severe articular cartilage loss overlies the medial patellar apex and medial patellar facet. Joint space: There is a moderate knee joint effusion and a small Lee's cyst. Normal appearing synovial plicae are incidentally noted. IMPRESSION: 1. Complex tearing of the medial meniscus. 2. Partial-thickness medial collateral ligament tear. 3. Knee joint effusion. 4. Osteoarthritis with medial and patellofemoral compartment articular cartilage loss. Dictated by: Kirill Sun M.D. on 10/05/2024 at 9:17 Approved by: Kirill Sun M.D. on 10/05/2024 at 9:21
== END ==
PROVIDERS: Family Provider Family Medicine; Referring Provider Nurse Practitioner Family; Visit Provider Nurse Practitioner Family
DX: S83.231A Complex tear of medial meniscus, current injury, right knee, initial encounter (principal); S83.411A Sprain of medial collateral ligament of right knee, initial encounter; M17.11 Unilateral primary osteoarthritis, right knee; M25.561 Pain in right knee; M25.461 Effusion, right knee
CPT/HCPCS: 73721

== ENCOUNTER 2025-07-06 17:52 | Inpatient (IN) | payer OTHER, SELFPAY ==
[2025-07-06] VITALS (15 sets, daily range): BP systolic 138–220; BP diastolic 83–134; PULSE 106–137; RESP 11–29; TEMP 37.1; O2SAT 93–98; BMI 27.4
--- NOTE | 2025-07-06 18:07 | DI.RAD.S_ITS ---
PROCEDURE: XR CHEST 1V INDICATIONS: suspected sepsis TECHNIQUE: One view of the chest was acquired. COMPARISON: None. FINDINGS AND IMPRESSION: No airspace consolidation or pleural effusion on this single view study. Normal heart size. No significant osseous findings. Dictated by: Pietro Triplett M.D. on 07/06/2025 at 19:18 Approved by: Pietro Triplett M.D. on 07/06/2025 at 19:18
--- NOTE | 2025-07-06 18:09 | ED_ITS ---
HPI - Abdominal Pain <Loly Johnson PA-C - Last Filed: 07/06/25 19:29> General Chief Complaint: Abdominal Pain Stated Complaint: Vomiting 3x today Time Seen by Provider: 07/06/25 17:56 Source: patient Mode of arrival: Ambulatory History of Present Illness HPI narrative: Ms. Mendez is a 50-year-old female with a past medical history of chronic pain related to interstitial cystitis, prior uterine cancer s/p total hysterectomy March 2024, daily marijuana use for pain, HTN, [id number] type 2 diabetes, PTSD who presents to the emergency department for nausea, vomiting, diarrhea, abdominal pain x 5 days. Patient reports every 3-4 months she gets similar episodes of severe pain and vomiting, states she has not needed to come to the emergency department before for this however it is extremely severe. She started having nausea vomiting and diarrhea Thursday, it improved but then returned today and she has had 3 episodes of nonbloody vomiting. She is having severe umbilical/epigastric abdominal pain. Reports also having brown diarrhea. Reports feeling intermittent hot flashes but no fevers. She is also feeling palpitations and dizziness. She denies dysuria, hematuria, shortness of breath, chest pain. Related Data Home Medications ?Medication ?Instructions ?Recorded ?Confirmed cyclobenzaprine 10 mg tablet 10 mg PO QDAY ##0 3 07/07/25 hydrochlorothiazide 25 mg tablet 25 mg PO QDAY ##0 06/0507/07/25 imipramine HCl 25 mg tablet 100 mg PO HS ##0 03/02/13 07/07/25 tamsulosin 0.4 mg capsule (Flomax) 0.4 mg PO QHS ##0 0 03/02/13 07/07/25 citalopram 20 mg tablet 20 mg PO DAILY 03/02/2406/24 clobetasol 0.05 % topical cream 1 applic topical DAILY 03/02/24 07/07/25 fenofibrate 54 mg tablet 54 mg PO DAILY 03/02/2406/24 fluoride (sodium) 1.1 % dental 1 applic PO DAILY 03/0207/07/25 cream (PreviDent 5000 Plus) losartan 25 mg tablet 25 mg PO DAILY 03/02/2406/24 metformin 1,000 mg tablet 1,000 mg PO BID 03/02/24 oxybutynin chloride 5 mg 5 mg PO DAILY 03/02/2407/07 tablet,extended release 24 hr pentosan polysulfate sodium 100 mg 100 mg PO 3XD 03/0207/07/25 capsule (Elmiron) phenazopyridine 100 mg tablet 100 mg PO 3XD bladder sp asms 03/02/24 07/07/25 promethazine 25 mg tablet 25 mg PO Q8H PRN nausea and 03/02/24 07/07/25 vomiting Previous Rx's ?Medication ?Instructions ?Recorded medroxyprogesterone 10 mg tablet 20 mg (2 x 10 mg) PO DAILY #60 tabs 03/09/24 (Provera) Allergies Allergy/AdvReac Type Severity Reaction Status Date / Time nortriptyline (NORTRIPTYLINE) Allergy Mild HIVES Verified 07/06/25 18:01 Sulfa (Sulfonamide Allergy Mild RASH Verified 07/06/25 18:01 Antibiotics) (SULFA (SULFONAMIDE ANTIBIOTICS)) gabapentin (GABAPENTIN) AdvReac Mild ANGRY Verified 07/06/25 18:01 pregabalin (PREGABALIN) AdvReac Mild SWELLING Verified 07/06/25 18:01 HANDS/FEET Review of Systems <Loly Johnson PA-C - Last Filed: 07/06/25 19:29> Review of Systems ROS Unobtainable: All systems reviewed & are unremarkable except as noted in HPI and below Patient History <Loly Johnson PA-C - Last Filed: 07/06/25 19:29> Medical History Endometrioid adenocarcinoma of uterus Abnormal MRI, pelvis Abnormal uterine bleeding (AUB) Anxiety disorder No pertinent family history Chronic interstitial cystitis HTN (hypertension) Diabetes type 2, controlled Chronic back pain Surgical History Status post insertion of brain-responsive neurostimulation device Social History household members: spouse lives independently: Yes caregiver/support person: No Smoking Status: Former smoker alcohol intake: never substance use type: does not use Smoking Status: Former smoker Exam <Loly Johnson PA-C - Last Filed: 07/06/25 19:29> Narrative Exam Narrative: GENERAL: 50 year old patient appears stated age. Well-developed patient, visibly uncomfortable. HEAD: Atraumatic. Normocephalic. EYES: No scleral icterus. No injection or drainage. NECK: Trachea midline. Cervical ROM intact. CARDIOVASCULAR: Increased rate and regular rhythm. RESPIRATORY: ?Nonlabored respirations. ?Speaking in clear, full sentences. ?Clear to auscultation. Breath sounds equal bilaterally. No wheezes, rales, or rhonchi. ? GASTROINTESTINAL: Abdomen soft, nondistended. Epigastric tenderness present, negative Bailon's sign, negative McBurney's point tenderness. EXTREMITIES: No LE edema. Brisk cap refill on fingertips. BACK: No CVA tenderness. NEURO: AOx3. ?Clear speech. ?Moves all 4 extremities appropriately. SKIN: No rash or erythema of visible areas. Skin is pale. Initial Vital Signs Initial Vital Signs: Vital Signs Temperature 98.7 F 07/06/25 17:58 Pulse Rate 137 H 07/06/25 17:58 Respiratory Rate 20 07/06/25 17:58 Blood Pressure 138/83 07/06/25 17:58 Pulse Oximetry 98 07/06/25 17:58 Oxygen Delivery Method Room Air 07/06/25 17:58 <Lyla Farris DO - Last Filed: 07/07/25 01:02> Initial Vital Signs Initial Vital Signs: Vital Signs Temperature 98.7 F 07/06/25 17:58 Pulse Rate 137 H 07/06/25 17:58 Respiratory Rate 20 07/06/25 17:58 Blood Pressure 138/83 07/06/25 17:58 Pulse Oximetry 98 07/06/25 17:58 Oxygen Delivery Method Room Air 07/06/25 17:58 Course <Loly Johnson PA-C - Last Filed: 07/06/25 19:29> Orders Ordered: ED Orders 07/06/25 18:07 XR chest 1V Stat EKG-12 Lead Stat RT Consult Eval and Treat NOW 07/06/25 18:08 CT abdomen pelvis w con Stat 07/06/25 18:20 BNP [NT-proBNP (BNP-Adult 18+)] Stat Complete Blood Count AUTO DIFF Stat Comprehensive Metabolic Panel Stat Lactate (Lactic Acid) Stat Lipase Stat Magnesium Stat PHOS [Phosphorous] Stat PTT Partial Thromboplastin Jeffery Stat Procalcitonin Stat Prothrombin Time INR Stat Troponin & CK Cardiac Panel Stat 07/06/25 18:49 Blood Culture Stat 07/06/25 20:45 Urine Microscopic Stat 07/06/25 21:13 Calcium Stat 07/06/25 23:09 Calcium Stat Lactate (Lactic Acid) Stat Vitamin D 25 Hydroxy (D3) Stat Acetaminophen (Acetaminophen 325 Mg Tablet) 650 mg PO Q6H PRN PRN Reason: Fever/Mild Pain (1-3) Lactated Ringer's (Lactated Ringers) 1,000 mls @ 125 mls/hr IV CONT [facility] Last Admin: 07/06/25 22:29 Dose: 125 mls/hr Documented By: DELMAR Sodium Chloride (Normal Saline 0.9%) 1,000 mls @ 100 mls/hr IV CONT [facility] Last Admin: 07/07/25 01:00 Dose: Not Given Documented By: BEREKET Morphine Sulfate (Morphine 2 Mg/Ml Inj) 2 mg IV Q4HR PRN PRN Reason: Pain, Moderate (4-6) Last Admin: 07/07/25 00:52 Dose: 2 mg Documented By: BEREKET Naloxone HCl (Naloxone 0.4 Mg/Ml Vial) 0.2 mg IV Q2MIN PRN PRN Reason: Opiate Reversal Ondansetron HCl (Ondansetron 4 Mg Odt) 4 mg PO NOW PRN PRN Reason: Nausea And Vomiting Ondansetron HCl (Ondansetron 4 Mg/2 Ml Inj) 4 mg IV Q8HR PRN PRN Reason: Nausea And Vomiting Discontinued Medications Calcitonin Olivet (Calcitonin,Olivet 400 Units/2 Ml Mdv) 300 units SUBCUT NOW ONE Stop: 07/06/25 21:58 Last Admin: 07/06/25 22:30 Dose: 300 units Documented By: DELMAR Furosemide (Furosemide 40 Mg/4 Ml Vial) 20 mg IV NOW ONE Stop: 07/06/25 19:06 Last Admin: 07/06/25 19:31 Dose: 20 mg Documented By: DELMAR Hydromorphone HCl (Hydromorphone Hcl 0.5 Mg/0.5 Ml Syringe) 0.5 mg IV Q1H PRN PRN Reason: Pain, Moderate (4-6) Hydromorphone HCl (Hydromorphone 1 Mg/Ml Syringe) 1 mg IV NOW ONE Stop: 07/06/25 19:59 Last Admin: 07/06/25 20:14 Dose: 1 mg Documented By: GELACIO Sodium Chloride (Normal Saline 0.9%) 1,000 mls @ 1,000 mls/hr IV BOLUS ONE Stop: 07/06/25 19:06 Last Infusion: 07/06/25 19:50 Dose: Infused Documented By: Admin: 07/06/25 18:50 Dose: 1,000 mls/hr Documented By: BELTRAN Sodium Chloride (Normal Saline 0.9%) 2,313.33 mls @ 1,542.22 mls/hr 30 ml/kg infuse over 90 min (2313.33 ml) IV NOW ONE Stop: 07/06/25 20:26 Last Infusion: 07/06/25 20:58 Dose: Infused Documented By: Admin: 07/06/25 19:28 Dose: 1,542.22 mls/hr Documented By: DELMAR Ceftriaxone Sodium 1,000 mg/ (Sodium Chloride) 100 mls @ 200 mls/hr IV NOW ONE Stop: 07/06/25 18:58 Last Infusion: 07/06/25 19:52 Dose: Infused Documented By: Admin: 07/06/25 19:22 Dose: 200 mls/hr Documented By: DELMAR Magnesium Sulfate (Magnesium Sulfate) 2 gm in 50 mls @ 25 mls/hr IV NOW ONE Stop: 07/06/25 21:04 Last Admin: 07/06/25 19:24 Dose: 25 mls/hr Documented By: DELMAR Co-signed By: GELACIO Zoledronic Acid 4 mg/ Sodium (Chloride) 105 mls @ 315 mls/hr IV NOW ONE Stop: 07/06/25 22:02 Last Admin: 07/06/25 22:37 Dose: 315 mls/hr Documented By: DELMAR Metoclopramide HCl (Metoclopramide 10 Mg/2 Ml Inj) 10 mg IV NOW ONE Stop: 07/06/25 22:58 Last Admin: 07/06/25 23:11 Dose: 10 mg Documented By: DELMAR Morphine Sulfate (Morphine 4 Mg/Ml Inj) 4 mg IV NOW ONE Stop: 07/06/25 18:19 Last Admin: 07/06/25 19:01 Dose: 4 mg Documented By: BELTRAN Ondansetron HCl (Ondansetron 4 Mg/2 Ml Inj) 4 mg IV NOW PRN PRN Reason: Nausea And Vomiting Last Admin: 07/06/25 19:30 Dose: 4 mg Documented By: DELMAR Pantoprazole Sodium (Pantoprazole 40 Mg Vial) 40 mg IV NOW ONE Stop: 07/06/25 22:58 Last Admin: 07/06/25 23:11 Dose: 40 mg Documented By: DELMAR Vital Signs Vital signs: Vital Signs - 8 hr 07/06/25 17:58 07/06/25 18:37 07/06/25 18:38 Temperature 98.7 F Pulse Rate 137 H 122 H 120 H Respiratory Rate 20 14 12 Blood Pressure 138/83 Pulse Oximetry 98 97 97 Oxygen Delivery Method Room Air Oxygen Flow Rate 07/06/25 18:38 07/06/25 19:00 07/06/25 19:00 Temperature Pulse Rate 124 H Respiratory Rate 26 H Blood Pressure 159/96 H 144/104 H Pulse Oximetry 97 Oxygen Delivery Method Oxygen Flow Rate 07/06/25 19:16 07/06/25 19:16 07/06/25 19:30 Temperature Pulse Rate 111 H 106 H Respiratory Rate 21 26 H Blood Pressure 159/88 H Pulse Oximetry 97 95 Oxygen Delivery Method Oxygen Flow Rate 07/06/25 19:45 07/06/25 19:45 07/06/25 20:00 Temperature Pulse Rate 107 H 115 H Respiratory Rate 29 H 11 L Blood Pressure 174/134 H Pulse Oximetry 96 97 Oxygen Delivery Method Oxygen Flow Rate 07/06/25 20:00 07/06/25 20:03 07/06/25 20:03 Temperature Pulse Rate 113 H Respiratory Rate 11 L Blood Pressure 220/117 H 185/108 H Pulse Oximetry 97 Oxygen Delivery Method Oxygen Flow Rate 07/06/25 20:30 07/06/25 20:30 07/06/25 21:00 Temperature Pulse Rate 114 H 107 H Respiratory Rate 22 17 Blood Pressure 209/98 H Pulse Oximetry 94 93 Oxygen Delivery Method Oxygen Flow Rate 07/06/25 21:00 07/06/25 21:30 07/06/25 21:30 Temperature Pulse Rate 108 H Respiratory Rate 12 Blood Pressure 180/91 H 157/90 H Pulse Oximetry 93 Oxygen Delivery Method Oxygen Flow Rate 07/06/25 22:00 07/06/25 22:00 Temperature Pulse Rate 110 H Respiratory Rate 12 Blood Pressure 167/103 H Pulse Oximetry 96 Oxygen Delivery Method Oxygen Flow Rate 2 <Lyla Farris, DO - Last Filed: 07/07/25 01:02> Orders Ordered: ED Orders 07/06/25 18:07 XR chest 1V Stat EKG-12 Lead Stat RT Consult Eval and Treat NOW 07/06/25 18:08 CT abdomen pelvis w con Stat 07/06/25 18:20 BNP [NT-proBNP (BNP-Adult 18+)] Stat Complete Blood Count AUTO DIFF Stat Comprehensive Metabolic Panel Stat Lactate (Lactic Acid) Stat Lipase Stat Magnesium Stat PHOS [Phosphorous] Stat PTT Partial Thromboplastin Jeffery Stat Procalcitonin Stat Prothrombin Time INR Stat Troponin & CK Cardiac Panel Stat 07/06/25 18:49 Blood Culture Stat 07/06/25 20:45 Urine Microscopic Stat 07/06/25 21:13 Calcium Stat 07/06/25 23:09 Calcium Stat Lactate (Lactic Acid) Stat Vitamin D 25 Hydroxy (D3) Stat Acetaminophen (Acetaminophen 325 Mg Tablet) 650 mg PO Q6H PRN PRN Reason: Fever/Mild Pain (1-3) Lactated Ringer's (Lactated Ringers) 1,000 mls @ 125 mls/hr IV CONT [facility] Last Admin: 07/06/25 22:29 Dose: 125 mls/hr Documented By: DELMAR Sodium Chloride (Normal Saline 0.9%) 1,000 mls @ 100 mls/hr IV CONT [facility] Last Admin: 07/07/25 01:00 Dose: Not Given Documented By: SH Morphine Sulfate (Morphine 2 Mg/Ml Inj) 2 mg IV Q4HR PRN PRN Reason: Pain, Moderate (4-6) Last Admin: 07/07/25 00:52 Dose: 2 mg Documented By: SH Naloxone HCl (Naloxone 0.4 Mg/Ml Vial) 0.2 mg IV Q2MIN PRN PRN Reason: Opiate Reversal Ondansetron HCl (Ondansetron 4 Mg Odt) 4 mg PO NOW PRN PRN Reason: Nausea And Vomiting Ondansetron HCl (Ondansetron 4 Mg/2 Ml Inj) 4 mg IV Q8HR PRN PRN Reason: Nausea And Vomiting Discontinued Medications Calcitonin Olivet (Calcitonin,Olivet 400 Units/2 Ml Mdv) 300 units SUBCUT NOW ONE Stop: 07/06/25 21:58 Last Admin: 07/06/25 22:30 Dose: 300 units Documented By: DELMAR Furosemide (Furosemide 40 Mg/4 Ml Vial) 20 mg IV NOW ONE Stop: 07/06/25 19:06 Last Admin: 07/06/25 19:31 Dose: 20 mg Documented By: DELMAR Hydromorphone HCl (Hydromorphone Hcl 0.5 Mg/0.5 Ml Syringe) 0.5 mg IV Q1H PRN PRN Reason: Pain, Moderate (4-6) Hydromorphone HCl (Hydromorphone 1 Mg/Ml Syringe) 1 mg IV NOW ONE Stop: 07/06/25 19:59 Last Admin: 07/06/25 20:14 Dose: 1 mg Documented By: GELACIO Sodium Chloride (Normal Saline 0.9%) 1,000 mls @ 1,000 mls/hr IV BOLUS ONE Stop: 07/06/25 19:06 Last Infusion: 07/06/25 19:50 Dose: Infused Documented By: Admin: 07/06/25 18:50 Dose: 1,000 mls/hr Documented By: BELTRAN Sodium Chloride (Normal Saline 0.9%) 2,313.33 mls @ 1,542.22 mls/hr 30 ml/kg infuse over 90 min (2313.33 ml) IV NOW ONE Stop: 07/06/25 20:26 Last Infusion: 07/06/25 20:58 Dose: Infused Documented By: Admin: 07/06/25 19:28 Dose: 1,542.22 mls/hr Documented By: DELMAR Ceftriaxone Sodium 1,000 mg/ (Sodium Chloride) 100 mls @ 200 mls/hr IV NOW ONE Stop: 07/06/25 18:58 Last Infusion: 07/06/25 19:52 Dose: Infused Documented By: Admin: 07/06/25 19:22 Dose: 200 mls/hr Documented By: DELMAR Magnesium Sulfate (Magnesium Sulfate) 2 gm in 50 mls @ 25 mls/hr IV NOW ONE Stop: 07/06/25 21:04 Last Admin: 07/06/25 19:24 Dose: 25 mls/hr Documented By: DELMAR Co-signed By: GELACIO Zoledronic Acid 4 mg/ Sodium (Chloride) 105 mls @ 315 mls/hr IV NOW ONE Stop: 07/06/25 22:02 Last Admin: 07/06/25 22:37 Dose: 315 mls/hr Documented By: DELMAR Metoclopramide HCl (Metoclopramide 10 Mg/2 Ml Inj) 10 mg IV NOW ONE Stop: 07/06/25 22:58 Last Admin: 07/06/25 23:11 Dose: 10 mg Documented By: DELMAR Morphine Sulfate (Morphine 4 Mg/Ml Inj) 4 mg IV NOW ONE Stop: 07/06/25 18:19 Last Admin: 07/06/25 19:01 Dose: 4 mg Documented By: BELTRAN Ondansetron HCl (Ondansetron 4 Mg/2 Ml Inj) 4 mg IV NOW PRN PRN Reason: Nausea And Vomiting Last Admin: 07/06/25 19:30 Dose: 4 mg Documented By: DELMAR Pantoprazole Sodium (Pantoprazole 40 Mg Vial) 40 mg IV NOW ONE Stop: 07/06/25 22:58 Last Admin: 07/06/25 23:11 Dose: 40 mg Documented By: DELMAR Vital Signs Vital signs: Vital Signs - 8 hr 07/06/25 17:58 07/06/25 18:37 07/06/25 18:38 Temperature 98.7 F Pulse Rate 137 H 122 H 120 H Respiratory Rate 20 14 12 Blood Pressure 138/83 Pulse Oximetry 98 97 97 Oxygen Delivery Method Room Air Oxygen Flow Rate 07/06/25 18:38 07/06/25 19:00 07/06/25 19:00 Temperature Pulse Rate 124 H Respiratory Rate 26 H Blood Pressure 159/96 H 144/104 H Pulse Oximetry 97 Oxygen Delivery Method Oxygen Flow Rate 07/06/25 19:16 07/06/25 19:16 07/06/25 19:30 Temperature Pulse Rate 111 H 106 H Respiratory Rate 21 26 H Blood Pressure 159/88 H Pulse Oximetry 97 95 Oxygen Delivery Method Oxygen Flow Rate 07/06/25 19:45 07/06/25 19:45 07/06/25 20:00 Temperature Pulse Rate 107 H 115 H Respiratory Rate 29 H 11 L Blood Pressure 174/134 H Pulse Oximetry 96 97 Oxygen Delivery Method Oxygen Flow Rate 07/06/25 20:00 07/06/25 20:03 07/06/25 20:03 Temperature Pulse Rate 113 H Respiratory Rate 11 L Blood Pressure 220/117 H 185/108 H Pulse Oximetry 97 Oxygen Delivery Method Oxygen Flow Rate 07/06/25 20:30 07/06/25 20:30 07/06/25 21:00 Temperature Pulse Rate 114 H 107 H Respiratory Rate 22 17 Blood Pressure 209/98 H Pulse Oximetry 94 93 Oxygen Delivery Method Oxygen Flow Rate 07/06/25 21:00 07/06/25 21:30 07/06/25 21:30 Temperature Pulse Rate 108 H Respiratory Rate 12 Blood Pressure 180/91 H 157/90 H Pulse Oximetry 93 Oxygen Delivery Method Oxygen Flow Rate 07/06/25 22:00 07/06/25 22:00 Temperature Pulse Rate 110 H Respiratory Rate 12 Blood Pressure 167/103 H Pulse Oximetry 96 Oxygen Delivery Method Oxygen Flow Rate 2 MDM - Abdominal Pain <Loly Johnson PA-C - Last Filed: 07/06/25 19:29> Medical Records Attestation: I reviewed the patient's medical records. Lab Data 07/06/25 18:20 07/06/25 18:20 Labs: Lab Results 07/06/25 07/06/25 07/06/25 Range/Units 18:20 20:21 20:45 WBC 9.1 (4.5-11.0) X10^3/uL RBC 4.89 (4.0-5.2) X10^6/uL Hgb 15.1 (12.0-16.0) g/dL Hct 44.0 (36-46) % MCV 90.0 (80-100) fL MCH 30.8 (26-34) PG MCHC 34.2 (30-36) % RDW 13.7 (11.6-14.8) % Plt Count 543 H (150-400) X10^3/uL Neut % (Auto) 65.1 (50-75) % Lymph % (Auto) 25.3 (25-40) % [place] % (Auto) 8.5 (3-14) % Eos % (Auto) 0.4 L (2-4) % Baso % (Auto) 0.7 (0-2) % Neut # (Auto) 5900 (1473-8206) /uL Lymph # (Auto) 2300 (4160-7128) /uL [place] # (Auto) 800 (0-900) /uL Eos # (Auto) 0 (0-450) /uL Baso # (Auto) 100 (0-100) /uL PT 13.7 H (9.4-12.5) SECONDS INR 1.2 (0.9-1.3) APTT 24 L (25.1-36.5) SECONDS Sodium 134 L (137-145) mmol/L Potassium 3.3 L (3.4-5.1) mmol/L Chloride 95 L (98-107) mmol/L Carbon Dioxide 17 L (22-32) mmol/L BUN 14 (7-17) mg/dL Creatinine 0.90 (0.52-1.04) mg/dL Estimated GFR > 60 (>60) mL/min BUN/Creatinine Ratio 15.6 (6-22) Glucose 386 H (70-99) mg/dL Lactate 7.2 H* 4.0 H (0.7-2.1) mmol/L Calcium 16.9 H* (8.4-10.2) mg/dL Phosphorus 4.7 H (2.5-4.5) mg/dL Magnesium 1.0 L (1.6-2.3) mg/dL Total Bilirubin 0.9 (0.2-1.3) mg/dL AST 92 H (14-36) IU/L ALT 92 H (<35) IU/L Alkaline Phosphatase 65 (38-126) U/L Total Creatine Kinase 120 (30-135) U/L Troponin I 0.012 (0.01-0.034) ng/mL NT-Pro-B Natriuret Pep 444 H (<125) pg/mL Total Protein 9.4 H (6.3-8.2) g/dL Albumin 5.5 H (3.5-5.0) g/dL Globulin 3.9 (1.7-4.1) g/dL Albumin/Globulin Ratio 1.4 (1.0-2.8) Lipase 196 (23-300) U/L Procalcitonin 0.155 (<0.5) ng/mL Urine RBC None seen (0-5/HPF) Urine WBC None seen (0-5/HPF) Ur Squamous Epith Cells None seen (0-5/HPF) Ur Transition Epith Cell 0-1/hpf (0-5/HPF) Urine Bacteria None seen (None) Ur Culture Indicated? Cult not indicated Vol Urine Centrifuged 10ml (spun) 07/06/25 Range/Units 21:13 WBC (4.5-11.0) X10^3/uL RBC (4.0-5.2) X10^6/uL Hgb (12.0-16.0) g/dL Hct (36-46) % MCV (80-100) fL MCH (26-34) PG MCHC (30-36) % RDW (11.6-14.8) % Plt Count (150-400) X10^3/uL Neut % (Auto) (50-75) % Lymph % (Auto) (25-40) % [place] % (Auto) (3-14) % Eos % (Auto) (2-4) % Baso % (Auto) (0-2) % Neut # (Auto) (7053-7757) /uL Lymph # (Auto) (0162-9358) /uL [place] # (Auto) (0-900) /uL Eos # (Auto) (0-450) /uL Baso # (Auto) (0-100) /uL PT (9.4-12.5) SECONDS INR (0.9-1.3) APTT (25.1-36.5) SECONDS Sodium (137-145) mmol/L Potassium (3.4-5.1) mmol/L Chloride (98-107) mmol/L Carbon Dioxide (22-32) mmol/L BUN (7-17) mg/dL Creatinine (0.52-1.04) mg/dL Estimated GFR (>60) mL/min BUN/Creatinine Ratio (6-22) Glucose (70-99) mg/dL Lactate (0.7-2.1) mmol/L Calcium 14.8 H* (8.4-10.2) mg/dL Phosphorus (2.5-4.5) mg/dL Magnesium (1.6-2.3) mg/dL Total Bilirubin (0.2-1.3) mg/dL AST (14-36) IU/L ALT (<35) IU/L Alkaline Phosphatase (38-126) U/L Total Creatine Kinase (30-135) U/L Troponin I (0.01-0.034) ng/mL NT-Pro-B Natriuret Pep (<125) pg/mL Total Protein (6.3-8.2) g/dL Albumin (3.5-5.0) g/dL Globulin (1.7-4.1) g/dL Albumin/Globulin Ratio (1.0-2.8) Lipase (23-300) U/L Procalcitonin (<0.5) ng/mL Urine RBC (0-5/HPF) Urine WBC (0-5/HPF) Ur Squamous Epith Cells (0-5/HPF) Ur Transition Epith Cell (0-5/HPF) Urine Bacteria (None) Ur Culture Indicated? Vol Urine Centrifuged Point of care testing: Urine Dip Bedside Urine Glucose 250 mg/dl Bedside Urine Bilirubin - Negative Bedside Urine Ketone - Negative Urine Specific [place] 1.010 Bedside Urine Occult Blood - Negative Bedside Urine pH 6.0 Bedside Urine Protein + 30 Bedside Urine Urobilinogen - Negative Bedside Urine Nitrite - Negative Bedside Urine Leukocytes - Negative Esterase MDM Narrative Medical decision making narrative: 50-year-old female with a past medical history of chronic pain related to interstitial cystitis, prior uterine cancer s/p total hysterectomy March 2024, daily marijuana use for pain, HTN, [id number] type 2 diabetes who presents to the emergency department for nausea, vomiting, diarrhea, abdominal pain x 5 days. Differential diagnosis includes but is not limited to sepsis, gastroenteritis, dehydration, electrolyte derangement, gastritis, esophagitis, pancreatitis, colitis, etc. On exam patient is visibly uncomfortable, had frequent episode of emesis which is clear/brown yellow in color. She has epigastric abdominal tenderness. Heart rate is extremely elevated triage 137, she is afebrile. We will initiate sepsis order set with IV fluids, Zofran, morphine. We will obtain CT abdomen pelvis IV contrast. Code sepsis called as patient's lactate came back 7.2. Calcium 16.9. She already has 1 L of IV fluids ordered, additional 30 mL/kg ordered in addition to ceftriaxone. Attending MD Dr. Farris made aware, 20 mg of Lasix ordered in addition to additional labs including troponin, CK, BNP, phosphorus, parathyroid hormone. 1930 Dr. Farris <Lyla Farris, DO - Last Filed: 07/07/25 01:02> Lab Data Labs: Lab Results 07/06/25 07/06/25 07/06/25 Range/Units 18:20 20:21 20:45 WBC 9.1 (4.5-11.0) X10^3/uL RBC 4.89 (4.0-5.2) X10^6/uL Hgb 15.1 (12.0-16.0) g/dL Hct 44.0 (36-46) % MCV 90.0 (80-100) fL MCH 30.8 (26-34) PG MCHC 34.2 (30-36) % RDW 13.7 (11.6-14.8) % Plt Count 543 H (150-400) X10^3/uL Neut % (Auto) 65.1 (50-75) % Lymph % (Auto) 25.3 (25-40) % [place] % (Auto) 8.5 (3-14) % Eos % (Auto) 0.4 L (2-4) % Baso % (Auto) 0.7 (0-2) % Neut # (Auto) 5900 (7890-6435) /uL Lymph # (Auto) 2300 (2016-6661) /uL [place] # (Auto) 800 (0-900) /uL Eos # (Auto) 0 (0-450) /uL Baso # (Auto) 100 (0-100) /uL PT 13.7 H (9.4-12.5) SECONDS INR 1.2 (0.9-1.3) APTT 24 L (25.1-36.5) SECONDS Sodium 134 L (137-145) mmol/L Potassium 3.3 L (3.4-5.1) mmol/L Chloride 95 L (98-107) mmol/L Carbon Dioxide 17 L (22-32) mmol/L BUN 14 (7-17) mg/dL Creatinine 0.90 (0.52-1.04) mg/dL Estimated GFR > 60 (>60) mL/min BUN/Creatinine Ratio 15.6 (6-22) Glucose 386 H (70-99) mg/dL Lactate 7.2 H* 4.0 H (0.7-2.1) mmol/L Calcium 16.9 H* (8.4-10.2) mg/dL Phosphorus 4.7 H (2.5-4.5) mg/dL Magnesium 1.0 L (1.6-2.3) mg/dL Total Bilirubin 0.9 (0.2-1.3) mg/dL AST 92 H (14-36) IU/L ALT 92 H (<35) IU/L Alkaline Phosphatase 65 (38-126) U/L Total Creatine Kinase 120 (30-135) U/L Troponin I 0.012 (0.01-0.034) ng/mL NT-Pro-B Natriuret Pep 444 H (<125) pg/mL Total Protein 9.4 H (6.3-8.2) g/dL Albumin 5.5 H (3.5-5.0) g/dL Globulin 3.9 (1.7-4.1) g/dL Albumin/Globulin Ratio 1.4 (1.0-2.8) Lipase 196 (23-300) U/L Procalcitonin 0.155 (<0.5) ng/mL Urine RBC None seen (0-5/HPF) Urine WBC None seen (0-5/HPF) Ur Squamous Epith Cells None seen (0-5/HPF) Ur Transition Epith Cell 0-1/hpf (0-5/HPF) Urine Bacteria None seen (None) Ur Culture Indicated? Cult not indicated Vol Urine Centrifuged 10ml (spun) 07/06/25 Range/Units 21:13 WBC (4.5-11.0) X10^3/uL RBC (4.0-5.2) X10^6/uL Hgb (12.0-16.0) g/dL Hct (36-46) % MCV (80-100) fL MCH (26-34) PG MCHC (30-36) % RDW (11.6-14.8) % Plt Count (150-400) X10^3/uL Neut % (Auto) (50-75) % Lymph % (Auto) (25-40) % [place] % (Auto) (3-14) % Eos % (Auto) (2-4) % Baso % (Auto) (0-2) % Neut # (Auto) (5397-3192) /uL Lymph # (Auto) (4289-0963) /uL [place] # (Auto) (0-900) /uL Eos # (Auto) (0-450) /uL Baso # (Auto) (0-100) /uL PT (9.4-12.5) SECONDS INR (0.9-1.3) APTT (25.1-36.5) SECONDS Sodium (137-145) mmol/L Potassium (3.4-5.1) mmol/L Chloride (98-107) mmol/L Carbon Dioxide (22-32) mmol/L BUN (7-17) mg/dL Creatinine (0.52-1.04) mg/dL Estimated GFR (>60) mL/min BUN/Creatinine Ratio (6-22) Glucose (70-99) mg/dL Lactate (0.7-2.1) mmol/L Calcium 14.8 H* (8.4-10.2) mg/dL Phosphorus (2.5-4.5) mg/dL Magnesium (1.6-2.3) mg/dL Total Bilirubin (0.2-1.3) mg/dL AST (14-36) IU/L ALT (<35) IU/L Alkaline Phosphatase (38-126) U/L Total Creatine Kinase (30-135) U/L Troponin I (0.01-0.034) ng/mL NT-Pro-B Natriuret Pep (<125) pg/mL Total Protein (6.3-8.2) g/dL Albumin (3.5-5.0) g/dL Globulin (1.7-4.1) g/dL Albumin/Globulin Ratio (1.0-2.8) Lipase (23-300) U/L Procalcitonin (<0.5) ng/mL Urine RBC (0-5/HPF) Urine WBC (0-5/HPF) Ur Squamous Epith Cells (0-5/HPF) Ur Transition Epith Cell (0-5/HPF) Urine Bacteria (None) Ur Culture Indicated? Vol Urine Centrifuged Point of care testing: Urine Dip Bedside Urine Glucose 250 mg/dl Bedside Urine Bilirubin - Negative Bedside Urine Ketone - Negative Urine Specific [place] 1.010 Bedside Urine Occult Blood - Negative Bedside Urine pH 6.0 Bedside Urine Protein + 30 Bedside Urine Urobilinogen - Negative Bedside Urine Nitrite - Negative Bedside Urine Leukocytes - Negative Esterase Imaging Data CT scan - abdomen/pelvis: Radiologist's Impression: PROCEDURE: CT ABDOMEN PELVIS W CON INDICATIONS: Epigastric pain with N/V/D TECHNIQUE: After the administration of intravenous contrast, axial sections acquired from the lung bases to the pubic symphysis. Coronal and sagittal reformats were performed. For radiation dose reduction, the following was used: automated exposure control, adjustment of mA and/or kV according to patient size. COMPARISON: None. FINDINGS: Image quality: Diagnostic Lower chest: Unremarkable lung bases. Liver: Steatosis. Hepatomegaly at 20 cm Gallbladder and biliary system: Cholecystectomy clips, nondilated allowing for postsurgical state Pancreas: Mild parenchymal atrophy without ductal dilation. Focal calcification at the pancreatic head, possibly from prior inflammation. There is mild edema seen surrounding the tail Spleen: Nonenlarged Adrenals: No discrete nodules Kidneys: No solid renal mass. No hydronephrosis. Vessels and lymph nodes: The main portal vein is patent. No abdominal aneurysm. No lymph nodes enlarged by size criteria. Bowel and peritoneum: Nondilated appendix. No bowel obstruction. No drainable abscess or ascites. Body wall: Unremarkable Pelvis: Under distended urinary bladder. Uterus is absent. Many pelvic phleboliths are present Bones: There are degenerative osseous changes. No aggressive appearing osseous abnormality. Left nerve stimulator in place. IMPRESSION: Questionable mild edema around the pancreatic tail, correlate lipase. Mild parenchymal atrophy and small calcification at the head, likely from prior inflammation. Hepatosplenomegaly and probable hepatic steatosis. Other findings above. Dictated by: Pietro Triplett M.D. on 07/06/2025 at 19:42 ECG Data Attestation: I personally reviewed and interpreted this ECG as follows: Prior ECG tracings: available for review Interpretation: Sinus rhythm rate 106 AZ interval 164 QRS 88 QTC 470 sinus tachycardia no ischemia Q-waves noted in lead 3 and 2, these are similar to prior EKGs [place] [address] changes MDM Narrative Medical decision making narrative: 50-year-old female with a past medical history of chronic pain related to interstitial cystitis, prior uterine cancer s/p total hysterectomy March 2024, daily marijuana use for pain, HTN, [id number] type 2 diabetes who presents to the emergency department for nausea, vomiting, diarrhea, abdominal pain x 5 days. Differential diagnosis includes but is not limited to sepsis, gastroenteritis, dehydration, electrolyte derangement, gastritis, esophagitis, pancreatitis, colitis, etc. On exam patient is visibly uncomfortable, had frequent episode of emesis which is clear/brown yellow in color. She has epigastric abdominal tenderness. Heart rate is extremely elevated triage 137, she is afebrile. We will initiate sepsis order set with IV fluids, Zofran, morphine. We will obtain CT abdomen pelvis IV contrast. Code sepsis called as patient's lactate came back 7.2. Calcium 16.9. She already has 1 L of IV fluids ordered, additional 30 mL/kg ordered in addition to ceftriaxone. Attending MD Dr. Farris made aware, 20 mg of Lasix ordered in addition to additional labs including troponin, CK, BNP, phosphorus, parathyroid hormone. 1930 Dr. Farris patient signed out to me by PAC. I have seen evaluated patient myself. She is pretty tender in her epigastric region. Concern for sepsis with elevated lactate of 7.2 also significantly hypercalcemic with a level of 16.9. Given sepsis fluids along with Lasix. Awaiting for repeat calcium. Patient does report that she has been taking Tums but does not say that it is more than 5 a day, reports that she has been taking more she reports every time she takes them she vomited. She does have a history of recent hysterectomy for uterine about 1 year ago. Pain is better after medications and nausea. She is urinating as well. CT show questionable mild edema around the pancreatic tail is-emesis lipase is 196 Repeat lactate is coming down in his now 4.0 Repeat calcium 14.8 Given calcitonin and zoledronic acid. 22:20 Dr. Sandhu, Nephrology updated patient's symptoms test results recommends workup including parathyroid hormone vitamin-D levels. Okay to give calcitonin IV every 12 hours for 4 doses agrees with the zoldronic acid. continue to check calcium levels 2225 on-call for tele in his web ui developer agrees with plan continue hydration Dr. Frazier accepts patient to obs tele Critical Care Time <Lyla Farris, DO - Last Filed: 07/07/25 01:02> Critical Care Time Critical Care Time: Yes Total Critical Care Time: 35 Attestation: The high probability of a clinically significant, sudden or life threatening deterioration of the [cardiovascular] system(s) required my full and direct attention, intervention and personal management. The aggregate critical care time was [45] minutes. This time is in addition to time spent performing reported procedures but includes the following: [x] Data Review and interpretation [x] Patient assessment and monitoring of vital signs [x] Documentation [x] Medication orders and management Discharge Plan Departure Patient Disposition: Admitted As Inpatient Clinical Impression: Hypercalcemia, Cyclical vomiting, High serum lactate, Hypomagnesemia Admit Date/Time: 07/06/25 22:29 Admit Provider: Antonio Frazier
[2025-07-06 18:34] LABS: Add Manual Diff / Slide Review NO; Hematocrit 44.0 % (36-46); Hemoglobin 15.1 g/dL (12.0-16.0); Lymphocytes Absolute Auto 2300 /uL (1100-4500); Mean Corpuscular HGB Conc 34.2 % (30-36); Mean Corpuscular Hemoglobin 30.8 PG (26-34); Mean Corpuscular Volume 90.0 fL (80-100); Platelet Count 543 X10^3/uL (150-400)
[2025-07-06 18:42] LABS: INR 1.2 (0.9-1.3); Prothrombin Time 13.7 SECONDS (9.4-12.5)
[2025-07-06 18:44] LABS: PTT Partial Thromboplastin Tim 24 SECONDS (25.1-36.5)
[2025-07-06 18:45] LABS: Alanine Aminotransferase 92 IU/L (<35); Albumin 5.5 g/dL (3.5-5.0); Albumin Globulin Ratio 1.4 (1.0-2.8); Alkaline Phosphatase 65 U/L (38-126); Blood Urea Nitrogen 14 mg/dL (7-17); Carbon Dioxide 17 mmol/L (22-32); Chloride 95 mmol/L (98-107); Estimated Glomerular Filt Rate > 60 mL/min (>60); Globulin 3.9 g/dL (1.7-4.1); Glucose 386 mg/dL (70-99); Lipase 196 U/L (23-300); Magnesium 1.0 mg/dL (1.6-2.3); Potassium 3.3 mmol/L (3.4-5.1); Sodium 134 mmol/L (137-145); Total Protein 9.4 g/dL (6.3-8.2)
[2025-07-06] MEDS: SODIUM CHLORIDE 0.9% 1,000 ML 1000 ML IV (18:50)
[2025-07-06 18:53] LABS: Calcium 16.9 mg/dL (8.4-10.2); Lactate (Lactic Acid) 7.2 mmol/L (0.7-2.1)
[2025-07-06 18:55] LABS: HEMOLYSIS < 15 (0-50)
[2025-07-06] MEDS: MORPHINE 4 MG/ML INJ IV (19:01)
[2025-07-06 19:02] LABS: Procalcitonin 0.155 ng/mL (<0.5)
[2025-07-06] MEDS: MAGNESIUM SULFATE 2 GM/50 ML PIGGYBACK IV (19:24)
[2025-07-06 19:27] LABS: Phosphorous 4.7 mg/dL (2.5-4.5)
[2025-07-06 19:28] LABS: Creatine Kinase 120 U/L (30-135)
[2025-07-06] MEDS: SODIUM CHLORIDE 0.9% 2,313.33 ML 1542.22 ML IV (19:28)
[2025-07-06] MEDS: ONDANSETRON 4 MG/2 ML INJ IV (19:30)
[2025-07-06] MEDS: FUROSEMIDE 40 MG/4 ML VIAL 20 MG IV (19:31)
[2025-07-06 19:39] LABS: NT-proBNP (BNP-Adult 18+) 444 pg/mL (<125); Troponin I 0.012 ng/mL (0.01-0.034)
--- NOTE | 2025-07-06 19:50 | EKG_ITS ---
[address] [address] Test Date: 2025-07-06 Pat Name: Sabine Mendez Department: [facility] Room: Gender: Female Nuclear Cardiology Technologist: OPHELIA LOTT : 1975 Requested By: Order Number: [id number] Reading MD: Aravind Magana MD Measurements Intervals [place] Rate: 106 P: 49 OK: 164 QRS: 63 QRSD: 88 T: 57 QT: 354 QTc: 470 Interpretive Statements Sinus tachycardia Possible Left atrial enlargement Possible Inferior infarct , age undetermined Anterior infarct , age undetermined Electronically Signed On 07-07-2025 7:26:25 PST by Aravind Magana MD
[2025-07-06 20:05] LABS: Reflexed Lactate in 2 Hours Y
[2025-07-06 20:57] LABS: Lactate 2HR (Lactic Acid Rflx) 4.0 mmol/L (0.7-2.1)
[2025-07-06 21:18] LABS: Culture Indicated Urine Cult Not Indicated
[2025-07-06 22:00] LABS: Calcium 14.8 mg/dL (8.4-10.2)
[2025-07-06] MEDS: LACTATED RINGERS 1,000 ML 125 ML IV (22:29)
[2025-07-06] MEDS: CALCITONIN,SALMON 400 UNITS/2 ML MDV 300 UNITS SUBCUT (22:30)
[2025-07-06] MEDS: ZOLEDRONIC ACID 4 MG in SODIUM CHLORIDE 0.9% 100 ML 315 MG IV (22:37)
[2025-07-06] MEDS: PANTOPRAZOLE 40 MG VIAL IV (23:11)
[2025-07-06] MEDS: METOCLOPRAMIDE 10 MG/2 ML INJ IV (23:11)
[2025-07-07] VITALS (10 sets, daily range): BP systolic 122–148; BP diastolic 81–89; PULSE 103–140; RESP 18–19; TEMP 36.4–38.1; O2SAT 93–97
[2025-07-07 00:09] LABS: Lactate (Lactic Acid) 2.6 mmol/L (0.7-2.1)
[2025-07-07 00:12] LABS: Calcium 13.9 mg/dL (8.4-10.2)
[2025-07-07 00:52] LABS: Reflexed Lactate in 2 Hours Y
[2025-07-07] MEDS: MORPHINE 2 MG/ML INJ IV ×6 (00:52→22:39)
[2025-07-07 00:54] LABS: Vitamin D 25 Hydroxy (D3) 27.0 ng/mL (30.0-100.0)
--- NOTE | 2025-07-07 01:03 | PC.NURSE ---
Addendum entered by Beatriz Cooper RN 07/07/25 05:39: Admitted at 23:30. Original Note: Admitted to ACU, spouse present at bedside. LR and reglan running upon admit. Per Dr. Frazier complete bag of LR, then start NS per order. Per BACTERIOLOGY TEACHER, Magnesium and Zolidronic acid completed in ER.
[2025-07-07] MEDS: INSULIN GLARGINE 100 UNIT/ML 3ML PEN 30 UNIT SUBCUT ×2 (01:28→20:06)
[2025-07-07] MEDS: INSULIN LISPRO 100 UNIT/ML 3ML VIAL SUBCUT ×5 (01:29→20:08)
[2025-07-07] MEDS: TAMSULOSIN 0.4 MG CAPSULE PO ×2 (01:48→20:08)
[2025-07-07 02:11] LABS: Lactate 2HR (Lactic Acid Rflx) 2.5 mmol/L (0.7-2.1)
[2025-07-07 02:15] LABS: Calcium 13.6 mg/dL (8.4-10.2)
--- NOTE | 2025-07-07 03:24 | PM.HP.1 ---
History of Present Illness History of Present Illness Date Patient Seen: 07/07/25 Time Patient Seen: 03:24 Chief complaint: Vomiting 3x today Narrative: 51-year-old female 50-year-old female with past medical history of chronic pain related to interstitial cystitis currently off opioid and on marijuana, prior uterine cancer status post hysterectomy in 2023 Hypertension, [id number] diabetes and PTSD presents with nausea, vomiting, diarrhea and abdominal pain. Per the patient's report, the patient started to have severe nausea and vomiting about 2 days. The patient states that she does have cyclic nausea vomiting every 3 to 4 months. The patient states that she takes multiple tablets of Tums in the last few days to help with her nausea. The patient otherwise denies any fever, chills, dysuria, chest pain, shortness of breath or syncope. In the emergency room, the patient was hypertensive but otherwise stable. Systolic blood pressure was in the 200s. However labs shows a calcium level of 16 and lactate of 7.2. However there is no sign of sepsis with normal WBC negative UA and chest x-ray showing no signs of pneumonia. The patient also has CT abdomen and pelvic that shows questionable mild edema around the pancreatic tail but however lipase is not significantly elevated. The patient was given IV fluid calcitonin empiric IV ceftriaxone and repeat calcium did come down to 14 and eventually 13. Lactate also improves down to 4 and again 2.4. Our ER physician did also contacted nephrology in regards to the hypercalcemia and the thought was that is likely due to her ingestion of Tums. Patient is also given IV fluid and Lasix. [facility] Medical History Endometrioid adenocarcinoma of uterus Abnormal MRI, pelvis Abnormal uterine bleeding (AUB) Anxiety disorder No pertinent family history Chronic interstitial cystitis HTN (hypertension) Diabetes type 2, controlled Chronic back pain Surgical History Status post insertion of brain-responsive neurostimulation device Social History household members: spouse lives independently: Yes caregiver/support person: No Smoking Status: Former smoker alcohol intake: never substance use type: does not use Meds Home Medications and Allergies Home Medications ?Medication ?Instructions ?Recorded ?Confirmed ?Type cyclobenzaprine 10 mg tablet 10 mg PO QDAY ##0 03/02/13 07/07/25 History hydrochlorothiazide 25 mg tablet 25 mg PO QDAY ##0 03/02/13 07/07/25 History imipramine HCl 25 mg tablet 100 mg PO HS ##0 03/02/13 07/07/25 History tamsulosin 0.4 mg capsule (Flomax) 0.4 mg PO QHS ##0 03/02/13 07/07/25 History citalopram 20 mg tablet 20 mg PO DAILY 03/02/24 07/07/25 History clobetasol 0.05 % topical cream 1 applic topical DAILY 03/02/24 07/07/25 History fenofibrate 54 mg tablet 54 mg PO DAILY 03/02/24 07/07/25 History fluoride (sodium) 1.1 % dental 1 applic PO DAILY 03/02/24 07/07/25 History cream (PreviDent 5000 Plus) losartan 25 mg tablet 25 mg PO DAILY 03/02/24 07/07/25 History metformin 1,000 mg tablet 1,000 mg PO BID 03/02/24 07/07/25 History oxybutynin chloride 5 mg 5 mg PO DAILY 03/02/24 07/07/25 History tablet,extended release 24 hr pentosan polysulfate sodium 100 mg 100 mg PO 3XD 03/02/24 07/07/25 History capsule (Elmiron) phenazopyridine 100 mg tablet 100 mg PO 3XD bladder spasms 03/02/24 07/07/25 History promethazine 25 mg tablet 25 mg PO Q8H PRN nausea and 03/02/24 07/07/25 History vomiting medroxyprogesterone 10 mg tablet 20 mg (2 x 10 mg) PO DAILY #60 tabs 03/09/24 07/07/25 Rx (Provera) Allergies Allergy/AdvReac Type Severity Reaction Status Date / Time nortriptyline (NORTRIPTYLINE) Allergy Mild HIVES Verified 07/06/25 18:01 Sulfa (Sulfonamide Allergy Mild RASH Verified 07/06/25 18:01 Antibiotics) (SULFA (SULFONAMIDE ANTIBIOTICS)) gabapentin (GABAPENTIN) AdvReac Mild ANGRY Verified 07/06/25 18:01 pregabalin (PREGABALIN) AdvReac Mild SWELLING Verified 07/06/25 18:01 HANDS/FEET Review of Systems Review of Systems ROS: Yes All systems reviewed with the patient and are negative except as otherwise documented Exam Vital Signs (past 8 hours): - 07/06/25 19:30 07/06/25 19:45 07/06/25 19:45 Pulse Rate 106 H 107 H Respiratory Rate 26 H 29 H Blood Pressure 174/134 H Pulse Oximetry 95 96 Oxygen Delivery Method Oxygen Flow Rate 07/06/25 20:00 07/06/25 20:00 07/06/25 20:03 Pulse Rate 115 H 113 H Respiratory Rate 11 L 11 L Blood Pressure 220/117 H Pulse Oximetry 97 97 Oxygen Delivery Method Oxygen Flow Rate 07/06/25 20:03 07/06/25 20:30 07/06/25 20:30 Pulse Rate 114 H Respiratory Rate 22 Blood Pressure 185/108 H 209/98 H Pulse Oximetry 94 Oxygen Delivery Method Oxygen Flow Rate 07/06/25 21:00 07/06/25 21:00 07/06/25 21:30 Pulse Rate 107 H 108 H Respiratory Rate 17 12 Blood Pressure 180/91 H Pulse Oximetry 93 93 Oxygen Delivery Method Oxygen Flow Rate 07/06/25 21:30 07/06/25 22:00 07/06/25 22:00 Pulse Rate 110 H Respiratory Rate 12 Blood Pressure 157/90 H 167/103 H Pulse Oximetry 96 Oxygen Delivery Method Oxygen Flow Rate 2 07/06/25 22:30 07/06/25 22:30 07/06/25 22:31 Pulse Rate 107 H Respiratory Rate 15 Blood Pressure 167/94 H Pulse Oximetry 96 Oxygen Delivery Method Nasal Cannula Oxygen Flow Rate 2 07/06/25 23:45 07/07/25 01:09 Pulse Rate 107 H 106 H Respiratory Rate Blood Pressure 180/91 H Pulse Oximetry 97 Oxygen Delivery Method Oxygen Flow Rate 0 Oxygen Delivery Method Nasal Cannula Oxygen Flow Rate 0 Narrative Exam Narrative: Physical Exam: GENERAL: The patient is not in any acute distressed. Awake and alert. HEENT: Nonicteric sclerae, PERRLA, EOMI. Oropharynx clear. Moist mucous membranes. Conjunctivae appear well perfused. HEART: Regular rate and rhythm without murmurs. No lower extremities edema. LUNGS: Clear to auscultation bilaterally. No wheezing, crackles or rhonchi ABDOMEN: Soft, positive bowel sounds, nontender. SKIN: No rash, no excessive bruising, petechiae, or purpura. NEUROLOGIC: AxO x 3. Cranial nerves II-XII intact without motor/sensory deficit. Objective Labs 07/06/25 18:20 07/06/25 18:20 Labs: Laboratory Results - last 24 hr 07/06/25 07/06/25 07/06/25 18:20 20:21 20:45 WBC 9.1 RBC 4.89 Hgb 15.1 Hct 44.0 MCV 90.0 MCH 30.8 MCHC 34.2 RDW 13.7 Plt Count 543 H Neut % (Auto) 65.1 Lymph % (Auto) 25.3 Kimball % (Auto) 8.5 Eos % (Auto) 0.4 L Baso % (Auto) 0.7 Neut # (Auto) 5900 Lymph # (Auto) 2300 Kimball # (Auto) 800 Eos # (Auto) 0 Baso # (Auto) 100 PT 13.7 H INR 1.2 APTT 24 L Sodium 134 L Potassium 3.3 L Chloride 95 L Carbon Dioxide 17 L BUN 14 Creatinine 0.90 Estimated GFR > 60 BUN/Creatinine Ratio 15.6 Glucose 386 H POC Whole Bld Glucose Lactate 7.2 H* 4.0 H Calcium 16.9 H* Phosphorus 4.7 H Magnesium 1.0 L Total Bilirubin 0.9 AST 92 H ALT 92 H Alkaline Phosphatase 65 Total Creatine Kinase 120 Troponin I 0.012 NT-Pro-B Natriuret Pep 444 H Total Protein 9.4 H Albumin 5.5 H Globulin 3.9 Albumin/Globulin Ratio 1.4 Lipase 196 25-OH Vitamin D Total Procalcitonin 0.155 Urine RBC None seen Urine WBC None seen Ur Squamous Epith Cells None seen Ur Transition Epith Cell 0-1/hpf Urine Bacteria None seen Ur Culture Indicated? Cult not indicated Vol Urine Centrifuged 10ml (spun) 07/06/25 07/06/25 07/06/25 21:13 23:09 23:40 WBC RBC Hgb Hct MCV MCH MCHC RDW Plt Count Neut % (Auto) Lymph % (Auto) Kimball % (Auto) Eos % (Auto) Baso % (Auto) Neut # (Auto) Lymph # (Auto) Kimball # (Auto) Eos # (Auto) Baso # (Auto) PT INR APTT Sodium Potassium Chloride Carbon Dioxide BUN Creatinine Estimated GFR BUN/Creatinine Ratio Glucose POC Whole Bld Glucose 333 H Lactate 2.6 H Calcium 14.8 H* 13.9 H* Phosphorus Magnesium Total Bilirubin AST ALT Alkaline Phosphatase Total Creatine Kinase Troponin I NT-Pro-B Natriuret Pep Total Protein Albumin Globulin Albumin/Globulin Ratio Lipase 25-OH Vitamin D Total 27.0 L Procalcitonin Urine RBC Urine WBC Ur Squamous Epith Cells Ur Transition Epith Cell Urine Bacteria Ur Culture Indicated? Vol Urine Centrifuged 07/07/25 01:17 WBC RBC Hgb Hct MCV MCH MCHC RDW Plt Count Neut % (Auto) Lymph % (Auto) Kimball % (Auto) Eos % (Auto) Baso % (Auto) Neut # (Auto) Lymph # (Auto) Kimball # (Auto) Eos # (Auto) Baso # (Auto) PT INR APTT Sodium Potassium Chloride Carbon Dioxide BUN Creatinine Estimated GFR BUN/Creatinine Ratio Glucose POC Whole Bld Glucose Lactate 2.5 H Calcium 13.6 H* Phosphorus Magnesium Total Bilirubin AST ALT Alkaline Phosphatase Total Creatine Kinase Troponin I NT-Pro-B Natriuret Pep Total Protein Albumin Globulin Albumin/Globulin Ratio Lipase 25-OH Vitamin D Total Procalcitonin Urine RBC Urine WBC Ur Squamous Epith Cells Ur Transition Epith Cell Urine Bacteria Ur Culture Indicated? Vol Urine Centrifuged Assessment & Plan Assessment & Plan narrative: Hypercalcemia. Admit the patient to medical telemetry as inpatient. Likely due to over ingestion of Tums accidentally. Will continue to monitor calcium closely with IV fluid and Lasix. Of note the patient calcium level has decreased from 16.9-14 0.8-13.9. Patient has been counseled not to take Tums as per our record the patient did have hypercalcemia back in 2022 for similar ingestion of Tums. Cyclic nausea and vomiting. Likely due to use of marijuana. Patient has been counseled. However patient states that she takes marijuana for pain control. Recommended to have patient seen pain clinic as outpatient. IV fluid and IV antiemetics. Elevated lactic acid. Again no sign of sepsis or infection. Likely from severe nausea vomiting and dehydration. Lactate normalizing with IV fluid. Continue to monitor. Obviously diabetes. Monitor glucose with subcu insulin as needed. Hypertension. Monitor blood pressure and treat accordingly. Resume home medication. DVT prophylaxis SCDs CODE STATUS DNR/DNI. Disposition likely home in 1 to 2 days - As the provider of this telehealth evaluation, requested by the patient's evaluating physician, I attest that I introduced myself to the patient, provided my credentials and determined that telemedicine via a real-time, 2 way interactive audio and video platform is an appropriate and effective means of providing this service. - I reviewed the patient's chart and had a discussion with the member of the patient's treatment team. - The patient and I mutually agreed with continuation of this evaluation via telemedicine. The patient consented for the telemedicine evaluation. - This virtual encounter was taken place from [place] by Dr. Antonio Frazier. The patient was evaluated at [facility]. The encounter was approximately 35 minutes. The nurse was present during the entire time of the encounter and was able to assists with exam/stethoscope. Time-Based Coding :: [TOTAL MINUTES] spent with patient and on the chart (including review of chart, obtaining history, exam, reviewing outside data, placing orders, documenting exam and treatment plan, and counseling patient) on [DATE]. Quality VTE Deep Vein Thrombosis/Pulmonary Embolism Present on Admission: No
[2025-07-07] MEDS: FUROSEMIDE 20 MG/2 ML VIAL IV (04:22)
[2025-07-07] MEDS: ONDANSETRON 4 MG/2 ML INJ IV ×4 (04:59→22:40)
--- NOTE | 2025-07-07 05:56 | PC.NURSE ---
Patient sustaining hr 120's, asymptomatic. Notified Dr. Frazier, he said is the patient sinus tach? If pt is asymptomatic, we can monitor.
[2025-07-07 06:11] LABS: Add Manual Diff / Slide Review NO; Hematocrit 41.3 % (36-46); Hemoglobin 13.9 g/dL (12.0-16.0); Lymphocytes Absolute Auto 1900 /uL (1100-4500); Mean Corpuscular HGB Conc 33.6 % (30-36); Mean Corpuscular Hemoglobin 30.3 PG (26-34); Mean Corpuscular Volume 90.2 fL (80-100); Platelet Count 446 X10^3/uL (150-400)
[2025-07-07 06:28] LABS: Alanine Aminotransferase 80 IU/L (<35); Albumin 5.0 g/dL (3.5-5.0); Albumin Globulin Ratio 1.5 (1.0-2.8); Alkaline Phosphatase 61 U/L (38-126); Blood Urea Nitrogen 13 mg/dL (7-17); Carbon Dioxide 24 mmol/L (22-32); Chloride 99 mmol/L (98-107); Estimated Glomerular Filt Rate > 60 mL/min (>60); Globulin 3.3 g/dL (1.7-4.1); Glucose 295 mg/dL (70-99); HEMOLYSIS < 15 (0-50); Potassium 3.0 mmol/L (3.4-5.1); Sodium 137 mmol/L (137-145); Total Protein 8.3 g/dL (6.3-8.2)
[2025-07-07 06:31] LABS: Calcium 13.3 mg/dL (8.4-10.2)
[2025-07-07] MEDS: SODIUM CHLORIDE 0.9% 1,000 ML 100 ML IV ×2 (06:40→15:33)
--- NOTE | 2025-07-07 07:34 | PM.HP.1 ---
History of Present Illness History of Present Illness Date Patient Seen: 07/07/25 Chief complaint: Vomiting 3x today Narrative: From night doctor: 51-year-old female 50-year-old female with past medical history of chronic pain related to interstitial cystitis currently off opioid and on marijuana, prior uterine cancer status post hysterectomy in 2023 Hypertension, [id number] diabetes and PTSD presents with nausea, vomiting, diarrhea and abdominal pain. Per the patient's report, the patient started to have severe nausea and vomiting about 2 days. The patient states that she does have cyclic nausea vomiting every 3 to 4 months. The patient states that she takes multiple tablets of Tums in the last few days to help with her nausea. The patient otherwise denies any fever, chills, dysuria, chest pain, shortness of breath or syncope. In the emergency room, the patient was hypertensive but otherwise stable. Systolic blood pressure was in the 200s. However labs shows a calcium level of 16 and lactate of 7.2. However there is no sign of sepsis with normal WBC negative UA and chest x-ray showing no signs of pneumonia. The patient also has CT abdomen and pelvic that shows questionable mild edema around the pancreatic tail but however lipase is not significantly elevated. The patient was given IV fluid calcitonin empiric IV ceftriaxone and repeat calcium did come down to 14 and eventually 13. Lactate also improves down to 4 and again 2.4. Our ER physician did also contacted nephrology in regards to the hypercalcemia and the thought was that is likely due to her ingestion of Tums. Patient is also given IV fluid and Lasix. Additional history: I met with she and her today. She was had chronic pain related to interstitial cystitis. She has been to the [facility] for 3 years and ultimately graduated on oxycodone 10 mg as needed for about 2 doses a day. She was stopped receiving oxycodone due to environmental changes with her medical provider 3 years ago. She was not able to tolerate gabapentin or Lyrica. She has been using CBD 2 to 3 times a day for control of symptoms in the form of an edible for the last several years. She was having sporadic episodes of cyclic vomiting and abdomen pain since 2021 with these have become a little more severe. Her wonders if this related to being on Brilinta for a year, the cessation of opiates, or the CBD. S: She remains nauseated and is having intermittent vomiting. She was chronic pain in the suprapubic region and some epigastric pain which is radiating to the back. ROS: All else reviewed and otherwise unremarkable except as noted in the history and physical. O: NAD, alert and oriented, soft speech. She appears to be uncomfortable and chronically ill. Normocephalic skull, EOMI, anicteric sclera, symmetric pupils. Oropharynx unremarkable, no droop. Neck supple, midline trachea, no adenopathy. Lungs clear, normal rate and effort. Heart regular, no murmur gallop or rub. Abdomen is soft, non distended and tender in the suprapubic region as well as the epigastric region. No guarding, or rebound.. Extremities are free of edema. Skin is free of rash or lesions. Joints are not swollen or deformed. Judgment appears to be normal. ECG: Intervals [place] Rate: 106 P: 49 MO: 164 QRS: 63 QRSD: 88 T: 57 QT: 354 QTc: 470 Interpretive Statements Sinus tachycardia Possible Left atrial enlargement Possible Inferior infarct , age undetermined Anterior infarct , age undetermined IMAGING: CXR: clear. CTAP: questionable mild edema around the pancreatic tail. A/P: 1. Hypercalcemia. Admit the patient to medical telemetry as inpatient. Likely due to over ingestion of Tums accidentally. 2. Cyclic nausea and vomiting. IV fluid and IV antiemetics. 3. Elevated lactic acid. Lactate normalizing with IV fluid. Continue to monitor. 4. Obviously diabetes. Monitor glucose with subcu insulin as needed. 5. Hypertension. Monitor blood pressure and treat accordingly. Resume home medication. 6. Interstitial cystitis and chronic pain syndrome, active. 7. Remote uterine cancer status post hysterectomy. 8. Hypokalemia, active. PLAN: -continue IV fluids -continue symptomatic treatment with antiemetics and pain medications. -Monitor Calcium. -replete potassium. -Check PTH Anticipate at least a 2nd midnight in the hospital receiving symptomatic treatment of her symptoms. Current status: Obs. DVT prophylaxis SCDs CODE STATUS DNR/DNI. Disposition likely home in 1 to 2 days [facility] Medical History Endometrioid adenocarcinoma of uterus Abnormal MRI, pelvis Abnormal uterine bleeding (AUB) Anxiety disorder No pertinent family history Chronic interstitial cystitis HTN (hypertension) Diabetes type 2, controlled Chronic back pain Surgical History Status post insertion of brain-responsive neurostimulation device Social History household members: spouse lives independently: Yes caregiver/support person: No Smoking Status: Former smoker alcohol intake: never substance use type: does not use Meds Home Medications and Allergies Home Medications ?Medication ?Instructions ?Recorded ?Confirmed ?Type cyclobenzaprine 10 mg tablet 10 mg PO QDAY ##0 03/02/13 07/07/25 History hydrochlorothiazide 25 mg tablet 25 mg PO QDAY ##0 03/02/13 07/07/25 History imipramine HCl 25 mg tablet 100 mg PO HS ##0 03/02/13 07/07/25 History tamsulosin 0.4 mg capsule (Flomax) 0.4 mg PO QHS ##0 03/02/13 07/07/25 History citalopram 20 mg tablet 20 mg PO DAILY 03/02/24 07/07/25 History clobetasol 0.05 % topical cream 1 applic topical DAILY 03/02/24 07/07/25 History fenofibrate 54 mg tablet 54 mg PO DAILY 03/02/24 07/07/25 History fluoride (sodium) 1.1 % dental 1 applic PO DAILY 03/02/24 07/07/25 History cream (PreviDent 5000 Plus) losartan 25 mg tablet 25 mg PO DAILY 03/02/24 07/07/25 History metformin 1,000 mg tablet 1,000 mg PO BID 03/02/24 07/07/25 History oxybutynin chloride 5 mg 5 mg PO DAILY 03/02/24 07/07/25 History tablet,extended release 24 hr pentosan polysulfate sodium 100 mg 100 mg PO 3XD 03/02/24 07/07/25 History capsule (Elmiron) phenazopyridine 100 mg tablet 100 mg PO 3XD bladder spasms 03/02/24 07/07/25 History promethazine 25 mg tablet 25 mg PO Q8H PRN nausea and 03/02/24 07/07/25 History vomiting medroxyprogesterone 10 mg tablet 20 mg (2 x 10 mg) PO DAILY #60 tabs 03/09/24 07/07/25 Rx (Provera) Allergies Allergy/AdvReac Type Severity Reaction Status Date / Time tree nut Allergy Severe Anaphylaxis Verified 07/07/25 09:38 nortriptyline (NORTRIPTYLINE) Allergy Mild HIVES Verified 07/07/25 09:38 Sulfa (Sulfonamide Allergy Mild RASH Verified 07/07/25 09:38 Antibiotics) (SULFA (SULFONAMIDE ANTIBIOTICS)) apple AdvReac Severe Other Verified 07/07/25 11:45 aspartame AdvReac Intermediate other Verified 07/07/25 11:45 cranberry AdvReac Intermediate other Verified 07/07/25 11:45 orange AdvReac Intermediate other Verified 07/07/25 11:45 tomato AdvReac Intermediate other Verified 07/07/25 11:45 gabapentin (GABAPENTIN) AdvReac Mild ANGRY Verified 07/07/25 09:38 pregabalin (PREGABALIN) AdvReac Mild SWELLING Verified 07/07/25 09:38 HANDS/FEET Review of Systems Review of Systems Narrative: All else reviewed and otherwise unremarkable except as noted in the history and physical. Exam Vital Signs (past 8 hours): - 07/06/25 23:45 07/07/25 01:09 07/07/25 04:00 Temperature 97.6 F Pulse Rate 107 H 106 H 119 H Respiratory Rate 18 Blood Pressure 180/91 H 148/84 H Pulse Oximetry 97 95 Oxygen Flow Rate 0 0 Oxygen Delivery Method Room Air Oxygen Flow Rate 0 Objective Labs 07/07/25 05:09 07/07/25 05:09 Labs: Laboratory Results - last 24 hr 07/06/25 07/06/25 07/06/25 18:20 20:21 20:45 WBC 9.1 RBC 4.89 Hgb 15.1 Hct 44.0 MCV 90.0 MCH 30.8 MCHC 34.2 RDW 13.7 Plt Count 543 H Neut % (Auto) 65.1 Lymph % (Auto) 25.3 Morrison % (Auto) 8.5 Eos % (Auto) 0.4 L Baso % (Auto) 0.7 Neut # (Auto) 5900 Lymph # (Auto) 2300 Morrison # (Auto) 800 Eos # (Auto) 0 Baso # (Auto) 100 PT 13.7 H INR 1.2 APTT 24 L Sodium 134 L Potassium 3.3 L Chloride 95 L Carbon Dioxide 17 L BUN 14 Creatinine 0.90 Estimated GFR > 60 BUN/Creatinine Ratio 15.6 Glucose 386 H POC Whole Bld Glucose Lactate 7.2 H* 4.0 H Calcium 16.9 H* Phosphorus 4.7 H Magnesium 1.0 L Total Bilirubin 0.9 AST 92 H ALT 92 H Alkaline Phosphatase 65 Total Creatine Kinase 120 Troponin I 0.012 NT-Pro-B Natriuret Pep 444 H Total Protein 9.4 H Albumin 5.5 H Globulin 3.9 Albumin/Globulin Ratio 1.4 Lipase 196 25-OH Vitamin D Total Procalcitonin 0.155 Urine RBC None seen Urine WBC None seen Ur Squamous Epith Cells None seen Ur Transition Epith Cell 0-1/hpf Urine Bacteria None seen Ur Culture Indicated? Cult not indicated Vol Urine Centrifuged 10ml (spun) 07/06/25 07/06/25 07/06/25 21:13 23:09 23:40 WBC RBC Hgb Hct MCV MCH MCHC RDW Plt Count Neut % (Auto) Lymph % (Auto) Morrison % (Auto) Eos % (Auto) Baso % (Auto) Neut # (Auto) Lymph # (Auto) Morrison # (Auto) Eos # (Auto) Baso # (Auto) PT INR APTT Sodium Potassium Chloride Carbon Dioxide BUN Creatinine Estimated GFR BUN/Creatinine Ratio Glucose POC Whole Bld Glucose 333 H Lactate 2.6 H Calcium 14.8 H* 13.9 H* Phosphorus Magnesium Total Bilirubin AST ALT Alkaline Phosphatase Total Creatine Kinase Troponin I NT-Pro-B Natriuret Pep Total Protein Albumin Globulin Albumin/Globulin Ratio Lipase 25-OH Vitamin D Total 27.0 L Procalcitonin Urine RBC Urine WBC Ur Squamous Epith Cells Ur Transition Epith Cell Urine Bacteria Ur Culture Indicated? Vol Urine Centrifuged 07/07/25 07/07/25 07/07/25 01:17 05:09 07:18 WBC 10.5 RBC 4.58 Hgb 13.9 Hct 41.3 MCV 90.2 MCH 30.3 MCHC 33.6 RDW 13.4 Plt Count 446 H Neut % (Auto) 73.6 Lymph % (Auto) 17.8 L Morrison % (Auto) 7.4 Eos % (Auto) 0.1 L Baso % (Auto) 1.1 Neut # (Auto) 7700 H Lymph # (Auto) 1900 Morrison # (Auto) 800 Eos # (Auto) 0 Baso # (Auto) 100 PT INR APTT Sodium 137 Potassium 3.0 L Chloride 99 Carbon Dioxide 24 BUN 13 Creatinine 0.69 Estimated GFR > 60 BUN/Creatinine Ratio 18.8 Glucose 295 H POC Whole Bld Glucose 299 H Lactate 2.5 H Calcium 13.6 H* 13.3 H* Phosphorus Magnesium Total Bilirubin 0.6 AST 74 H ALT 80 H Alkaline Phosphatase 61 Total Creatine Kinase Troponin I NT-Pro-B Natriuret Pep Total Protein 8.3 H Albumin 5.0 Globulin 3.3 Albumin/Globulin Ratio 1.5 Lipase 25-OH Vitamin D Total Procalcitonin Urine RBC Urine WBC Ur Squamous Epith Cells Ur Transition Epith Cell Urine Bacteria Ur Culture Indicated? Vol Urine Centrifuged Assessment & Plan Time-Based Coding :: 35 min spent with patient and on the chart (including review of chart, obtaining history, exam, reviewing outside data, placing orders, documenting exam and treatment plan, and counseling patient) on 07/07. Quality VTE Deep Vein Thrombosis/Pulmonary Embolism Present on Admission: No MIPS - Admit I confirm the patient?s Advance Care Plan is present, Code status is documented, Surrogate decision maker is in patient?s record [If Yes, STOP here]: Yes MIPS - Meds 'Current medications' to include all prescriptions, spxf-mlv-yiddtug products, herbals, cannabis/cannabidiol products, and vitamin/mineral/dietary (nutritional) supplements. I have utilized all available resources to obtain, update, or review the patient?s current medications. [If Yes, STOP here]: Yes
[2025-07-07] MEDS: LOSARTAN 25 MG TABLET PO (08:20)
[2025-07-07] MEDS: PHENAZOPYRIDINE 100 MG TABLET PO ×3 (08:21→20:08)
[2025-07-07] MEDS: CITALOPRAM 10 MG TABLET 20 MG PO (08:21)
[2025-07-07] MEDS: CYCLOBENZAPRINE 10 MG TABLET PO (08:21)
[2025-07-07] MEDS: MAGNESIUM SULFATE 2 GM/50 ML PIGGYBACK IV (10:24)
[2025-07-07] MEDS: POTASSIUM CHLORIDE IN WATER 10 MEQ/100 ML PIGGYBACK 100 MEQ IV ×6 (10:42→17:23)
--- NOTE | 2025-07-07 11:46 | DIET.CONS ---
Dietary Consultation Note Admission Date: 07/06/2025 22:29 Assessment: 50 y F admitted for hypercalcemia. Dietitian screened low MNA score. Met with pt and spouse at bedside. Pt feeling unwell and spouse provided majority of information. Reports off and on vomiting/nausea that occurs for a few days at a time every few months. This time it started Thursday and has not resolved. Unable to take in any PO intakes during this time. Hx of DM, reports following with PCP every 3 months and A1c is trending down, with last one about 3 months ago that was 7.1%. Notes loss weight 18 months ago - went from low 200# to 180# and has been stable around 180-185# since then. NFPE postponed, pt feeling unwell, lying down eyes closed during assessment. Notes d/t pt's hx of Chronic interstitial cystitis pt is unable to tolerate the following: apples, citrus of any kind, cranberry, tomato, acidic foods, sour cream, yogurt, aspartame/artificial sweeteners, any spicy foods or spice (black pepper OK). 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 Added foods to allergy/adv rxn in chart and into DFM as well. Communicated with kitchen. Ht: 167.64 cm Wt: 77.111 kg BMI: 27.4 UBW: 180# (81.8 kg) per pt's spouse; per EMR 80.7 kg on 09/13/24, 78.5 kg on 11/29/24 Last BM: 07/06/25 (07/06/25 23:22) MNA: 9 Mayo Score: 17 Diet: 07/07/25 Breakfast Carbohydrate Consistent Diet Diet Modifications: Carbohydrate level: Medium (3 CHO) Reflex DM orders: No Food Texture: Level 7 - Regular Liquid Consistency: Level 0 - Thin Courtesy Floyd (Peds, comfort care) Diet Modifications: Labs: RBC 4.58 X10^6/uL (4.0-5.2) 07/07/25 05:09 Hgb 13.9 g/dL (12.0-16.0) 07/07/25 05:09 Hct 41.3 % (36-46) 07/07/25 05:09 Creatinine 0.69 mg/dL (0.52-1.04) 07/07/25 05:09 Lactate 2.5 mmol/L (0.7-2.1) H 07/07/25 01:17 NT-Pro-B Natriuret Pep 444 pg/mL (<125) H 07/06/25 18:20 Nutrition Diagnosis: Inadequate oral intakes r/t nausea/vomiting aeb no PO intakes for 5 days Interventions: -Ensure max at meals as tolerated -Adverse reactions to foods added to chart and DFM Monitoring/Evaluations: po intakes, BG Electronically Signed by: Socorro Jack 07/07/25 11:46 Clinical Diet[address] [address]
--- NOTE | 2025-07-07 13:29 | CM.DANOTE ---
Initial DCP Assessmement Visit Reviewed EMR and team rounds for pt's medical status and updates. Pt resides independently with her spouse in their own home in [place]. Her spouse will also transport her home once she's medically stable for d/c, likely in 1-more day. Payor: Nirmala Rivera PCP: Madhav BROWN Pt is a 50 year-old F with a PMH of chronic pain secondary to interstitial cystitis, uterine cancer w/hysterectomy (in remission) in 2023, HTN, type 2 diabetes, PTSD, and daily cannibus use. She presented to the ED with c/o nausea, vomiting, and diarrhea for the last 5-days, as well as acute abdominal pain and dizziness. She was found to be tachycardic, septic, and was started on IV fluids/antibiotics, lasix, and morphine. DCP will continue to monitor for any further evolving d/c needs, however none are anticipated for CM at this time. Discharge Planning/Care Management CM Discharge Assessment Start: 07/06/25 22:31 Freq: Status: Active Protocol: Document 07/07/25 13:28 DPL (Rec: 07/07/25 13:29 DPL [id number]) Discharge Planning Assessment Assigned Discharge LUIZA [employer] Provider Madhav BROWN Insurance Nirmala Advance Directives? No History Provided By Medical Record Has Patient been No admitted in last 30 days? Prior Living House Arrangements Household Members spouse Type of Drives own vehicle transporation used prior to admit Independent with ADL Yes 's Is patient alert and Yes oriented? Caregiver for No Another Comment N/A Barriers to No Discharge Discharge Plan Home Referrals Initiated None needed Whiteboard Updated Yes in Patient Room with name and ext. # of Tank Officer Review Status In Process Please Provide Date 07/07/25 Initial DC Assessment Was Performed
[2025-07-07] MEDS: METOCLOPRAMIDE 10 MG/2 ML INJ 5 MG IV (17:22)
[2025-07-07] MEDS: ACETAMINOPHEN 325 MG TABLET 650 MG PO (20:25)
[2025-07-07 23:05] LABS: Alanine Aminotransferase 92 IU/L (<35); Albumin 4.2 g/dL (3.5-5.0); Albumin Globulin Ratio 1.4 (1.0-2.8); Alkaline Phosphatase 48 U/L (38-126); Blood Urea Nitrogen 9 mg/dL (7-17); Calcium 11.0 mg/dL (8.4-10.2); Carbon Dioxide 22 mmol/L (22-32); Chloride 102 mmol/L (98-107); Estimated Glomerular Filt Rate > 60 mL/min (>60); Globulin 2.9 g/dL (1.7-4.1); Glucose 186 mg/dL (70-99); HEMOLYSIS 16 (0-50); Potassium 3.2 mmol/L (3.4-5.1); Sodium 134 mmol/L (137-145); Total Protein 7.1 g/dL (6.3-8.2)
[2025-07-08] VITALS (10 sets, daily range): BP systolic 114–132; BP diastolic 59–76; PULSE 100–133; RESP 16–20; TEMP 36.3–38.3; O2SAT 91–94
[2025-07-08] MEDS: SODIUM CHLORIDE 0.9% 1,000 ML 100 ML IV ×3 (00:16→20:56)
[2025-07-08] MEDS: ACETAMINOPHEN 325 MG TABLET 650 MG PO ×3 (00:19→15:26)
[2025-07-08] MEDS: MORPHINE 2 MG/ML INJ IV ×4 (00:31→20:45)
[2025-07-08] MEDS: METOCLOPRAMIDE 10 MG/2 ML INJ 5 MG IV (00:31)
[2025-07-08] MEDS: SODIUM CHLORIDE 0.9% 1,000 ML 1000 ML IV (01:36)
[2025-07-08] MEDS: POTASSIUM CHLORIDE 20 MEQ/15 ML UDC 40 MEQ PO (01:45)
--- NOTE | 2025-07-08 01:59 | PC.NURSE ---
Addendum entered by Beatriz Cooper RN 07/08/25 04:46: Original note: Education provided for use of taking potassium. Still declined. After infusion of NS bolus, HR 100's Original Note: Pt HR running in 130's, notified Dr. Frazier, received order for 1 L NS bolus, and lorazepam, also 40 mEq potassium. Refused potassium stating that it causes increased bladder pain. Dr Frazier aware.
[2025-07-08 06:21] LABS: Blood Urea Nitrogen 10 mg/dL (7-17); Calcium 10.3 mg/dL (8.4-10.2); Carbon Dioxide 23 mmol/L (22-32); Chloride 103 mmol/L (98-107); Estimated Glomerular Filt Rate > 60 mL/min (>60); Glucose 208 mg/dL (70-99); HEMOLYSIS < 15 (0-50); Potassium 2.9 mmol/L (3.4-5.1); Sodium 135 mmol/L (137-145)
[2025-07-08 06:33] LABS: Magnesium 0.9 mg/dL (1.6-2.3)
[2025-07-08] MEDS: LOSARTAN 25 MG TABLET PO (09:12)
[2025-07-08] MEDS: CITALOPRAM 10 MG TABLET 20 MG PO (09:13)
[2025-07-08] MEDS: CYCLOBENZAPRINE 10 MG TABLET PO (09:14)
[2025-07-08] MEDS: PHENAZOPYRIDINE 100 MG TABLET PO ×3 (09:14→20:43)
[2025-07-08] MEDS: ONDANSETRON 4 MG/2 ML INJ IV ×3 (09:19→20:52)
[2025-07-08] MEDS: INSULIN LISPRO 100 UNIT/ML 3ML VIAL SUBCUT ×4 (09:35→20:44)
[2025-07-08] MEDS: MAGNESIUM SULFATE 4 GM/100 ML PIGGYBACK IV (09:42)
[2025-07-08] MEDS: POTASSIUM CHLORIDE IN WATER 10 MEQ/100 ML PIGGYBACK 100 MEQ IV ×8 (09:42→18:46)
[2025-07-08 15:46] LABS: HEMOLYSIS < 15 (0-50); Magnesium 1.6 mg/dL (1.6-2.3); Potassium 3.5 mmol/L (3.4-5.1)
--- NOTE | 2025-07-08 17:02 | P.PN_ITS ---
Subjective Subjective Interval history: 51-year-old female with interstitial cystitis, chronic pain secondary to interstitial cystitis, history of uterine cancer status post hysterectomy in 2023, hypertension, diabetes mellitus type 2, PTSD, and cyclic vomiting who was admitted with intractable emesis, hypercalcemia, lactic acidosis, and severe hypovolemia. This morning she was able to eat approximately 1/4 of a cup of fruit, which is the 1st intake she has had in 6 days. She continues to have nausea, but no vomiting. She has difficulty with discussing her history as she has had a traumatic past with regard to her interstitial cystitis in her chronic pain. She was cut off from her chronic opiate therapy at the [facility]. She has been unable to have an ongoing prescription for the opiates that were working reasonably well for her and has been on CBD since 2021. After they abruptly stopped her opiates, [place]. Since then, it has been even more cumbersome for her to have any chronic pain management. Her spouse has been attempting to advocate for her but has great difficulty doing so because most places expect she should advocate for herself and because of her previous trauma she has difficulty doing so. He asked what the etiology of her cyclic vomiting syndrome might be. Exam Vital Signs (past 8 hours): - 07/08/25 09:12 07/08/25 11:00 07/08/25 15:00 Temperature 98.4 F 99.7 F H Pulse Rate 120 H 117 H 114 H Respiratory Rate 18 16 Blood Pressure 114/59 L 120/74 132/60 Pulse Oximetry 91 93 Oxygen Delivery Method Room Air Oxygen Flow Rate 0 Narrative Exam Narrative: GEN: Anxious and chronically ill-appearing middle-aged female, Alert and oriented x 3, uncomfortable appearing HEENT:NC, Face symmetric CHEST: Respiratory excursions symmetric, CTAB CV: Tachycardic with regular rhythm, no M/R/G ABD: Soft, NT/ND, BT hypoactive but present in all 4 quadrants, no organomegaly or masses EXTR: warm, well perfused, no C/C/E SKIN: warm and dry, no rash NEURO: Alert and oriented x 3, nonfocal Objective Labs 07/07/25 05:09 07/08/25 15:22 Labs: Laboratory Results - last 24 hr 07/07/25 07/07/25 07/08/25 20:04 22:35 05:26 Sodium 134 L 135 L Potassium 3.2 L 2.9 L Chloride 102 103 Carbon Dioxide 22 23 BUN 9 10 Creatinine 0.71 0.75 Estimated GFR > 60 > 60 BUN/Creatinine Ratio 12.7 13.3 Glucose 186 H D 208 H POC Whole Bld Glucose 236 H Calcium 11.0 H 10.3 H Magnesium 0.9 L* Total Bilirubin 0.5 AST 126 H ALT 92 H Alkaline Phosphatase 48 Total Protein 7.1 Albumin 4.2 Globulin 2.9 Albumin/Globulin Ratio 1.4 07/08/25 07/08/25 07/08/25 07:15 10:59 15:22 Sodium Potassium 3.5 Chloride Carbon Dioxide BUN Creatinine Estimated GFR BUN/Creatinine Ratio Glucose POC Whole Bld Glucose 206 H 163 H Calcium Magnesium 1.6 Total Bilirubin AST ALT Alkaline Phosphatase Total Protein Albumin Globulin Albumin/Globulin Ratio 07/08/25 16:34 Sodium Potassium Chloride Carbon Dioxide BUN Creatinine Estimated GFR BUN/Creatinine Ratio Glucose POC Whole Bld Glucose 174 H Calcium Magnesium Total Bilirubin AST ALT Alkaline Phosphatase Total Protein Albumin Globulin Albumin/Globulin Ratio [facility] Medical History Endometrioid adenocarcinoma of uterus Abnormal MRI, pelvis Abnormal uterine bleeding (AUB) Anxiety disorder No pertinent family history Chronic interstitial cystitis HTN (hypertension) Diabetes type 2, controlled Chronic back pain Surgical History Status post insertion of brain-responsive neurostimulation device Social History household members: spouse lives independently: Yes caregiver/support person: No Smoking Status: Former smoker alcohol intake: never substance use type: does not use Assessment & Plan Assessment & Plan narrative: 1. Cyclic vomiting syndrome I reviewed possible etiologies including gastroparesis, uncontrolled pain, cannabinoid hyperemesis syndrome. Additionally, there is potential for abdominal migraines. Given her underlying diabetes, she certainly is at risk for gastroparesis. She did have difficulty back when she was placed on Trulicity. It is entirely possible she has undiagnosed gastroparesis that was unmasked when she was on Trulicity. As her hyperemesis came about around 2021 she certainly could have cannabinoid hyperemesis syndrome. It may be multifactorial. I advised her spouse that the only way to rule in or out any specific etiology is further evaluation. She could have a gastric emptying study to evaluate for gastroparesis. In order to rule out cannabinoid hyperemesis syndrome, she would have to completely stop any cannabinoids. In order to do that she needs to get back in with pain management and find a pain regimen that is effective for her. He expresses understanding. Historically, she was seen at the [facility], but was last seen 6 years ago. I have encouraged him to look for a referral back there to determine if there any new treatment options available. Telehealth is now being used more frequently since they were there 6 years ago, and they may be receptive to manage her more remotely now than they could have done at that time. She did not tolerate gabapentin or pregabalin. She is taking pentosan and a TCA at this time. Her notes she does have a nerve stimulator in place as well. 2. Hypercalcemia Calcium is down from 13.3-10.3. She is likely now euvolemic. She was profoundly dehydrated on admission. 3. Lactic acidosis Lactate was 7.2 on admission. With aggressive hydration it was down to 2.5 early yesterday morning. This was secondary to profound hypovolemia. 4. Hypokalemia and hypomagnesemia Potassium was 2.9 this morning and magnesium 0.9. Both are being repleted. 5. Diabetes mellitus type 2 Blood sugars have ranged from 163-236. Remains on Lantus 35 units daily. Continue fingersticks sliding scale. 6. Hypertension Continues on hydrochlorothiazide. Blood pressures are normotensive 7. Remote uterine cancer status post hysterectomy In remission 8. PTSD/anxiety/depression Continue citalopram. Code status DNR Prophylaxis Low Lorelei score Disposition Home when able to tolerate oral intake and hydration Time-Based Coding :: [TOTAL MINUTES] spent with patient and on the chart (including review of chart, obtaining history, exam, reviewing outside data, placing orders, documenting exam and treatment plan, and counseling patient) on [DATE]. Quality VTE Deep Vein Thrombosis/Pulmonary Embolism Present on Admission: No
[2025-07-08] MEDS: MAGNESIUM SULFATE 2 GM/50 ML PIGGYBACK IV (17:41)
[2025-07-08] MEDS: TAMSULOSIN 0.4 MG CAPSULE PO (20:43)
[2025-07-08] MEDS: INSULIN GLARGINE 100 UNIT/ML 3ML PEN 35 UNIT SUBCUT (20:45)
[2025-07-09] VITALS: BP 126/75; PULSE 107; RESP 16; TEMP 37.2; O2SAT 93
[2025-07-09] MEDS: MORPHINE 2 MG/ML INJ IV ×4 (00:17→21:15)
[2025-07-09] MEDS: ONDANSETRON 4 MG/2 ML INJ IV ×4 (00:22→21:15)
[2025-07-09 04:00] VITALS: BP 118/83; PULSE 108; RESP 18; TEMP 36.7; O2SAT 93
[2025-07-09] MEDS: SODIUM CHLORIDE 0.9% 1,000 ML 100 ML IV (05:39)
--- NOTE | 2025-07-09 06:18 | P.PN_ITS ---
Subjective Subjective Interval history: 51-year-old female with interstitial cystitis, chronic pain secondary to interstitial cystitis, history of uterine cancer status post hysterectomy in 2023, hypertension, diabetes mellitus type 2, PTSD, and cyclic vomiting who was admitted with intractable emesis, hypercalcemia, lactic acidosis, and severe hypovolemia. She has difficulty with discussing her history as she has had a traumatic past with regard to her interstitial cystitis in her chronic pain. She was cut off from her chronic opiate therapy at the [facility]. She has been unable to have an ongoing prescription for the opiates that were working reasonably well for her and has been on CBD since 2021. After they abruptly stopped her opiates, [place] Since then, it has been even more cumbersome for her to have any chronic pain management. She reports she is feeling a bit better today compared with yesterday. She was able to eat 4 bites of pancakes this morning as well as a bit more fruit. She continues to require electrolyte riders. She has 6 potassium riders and magnesium ordered this morning. Her is at bedside. He remains very involved and supportive in her care. She feels fairly confident that her cyclic vomiting began in 2021 when she had to switch to CBD for pain management when her primary clinic change the policy and stopped prescribing opiates. Exam Vital Signs (past 8 hours): - 07/09/25 00:00 07/09/25 04:00 Temperature 98.9 F 98.0 F Pulse Rate 107 H 108 H Respiratory Rate 16 18 Blood Pressure 126/75 118/83 Pulse Oximetry 93 93 Oxygen Delivery Method Room Air Oxygen Flow Rate 0 Narrative Exam Narrative: GEN: Anxious and chronically ill-appearing middle-aged female, Alert and oriented x 3, more engaged appearing overall, but does have an ice pack on her head and continues to appear uncomfortable HEENT:NC, Face symmetric CHEST: Respiratory excursions symmetric, CTAB CV: Mildly tachycardic with regular rhythm, no M/R/G ABD: Soft, NT/ND, BT hypoactive but present in all 4 quadrants, no organomegaly or masses EXTR: warm, well perfused, no C/C/E SKIN: warm and dry, no rash NEURO: Alert and oriented x 3, nonfocal Objective Labs 07/09/25 06:24 07/09/25 16:06 Labs: Laboratory Results - last 24 hr 07/08/25 07/08/25 07/08/25 05:26 07:15 10:59 Sodium 135 L Potassium 2.9 L Chloride 103 Carbon Dioxide 23 BUN 10 Creatinine 0.75 Estimated GFR > 60 BUN/Creatinine Ratio 13.3 Glucose 208 H POC Whole Bld Glucose 206 H 163 H Calcium 10.3 H Magnesium 0.9 L* 07/08/25 07/08/25 07/08/25 15:22 16:34 19:47 Sodium Potassium 3.5 Chloride Carbon Dioxide BUN Creatinine Estimated GFR BUN/Creatinine Ratio Glucose POC Whole Bld Glucose 174 H 210 H Calcium Magnesium 1.6 PFSH Medical History Endometrioid adenocarcinoma of uterus Abnormal MRI, pelvis Abnormal uterine bleeding (AUB) Anxiety disorder No pertinent family history Chronic interstitial cystitis HTN (hypertension) Diabetes type 2, controlled Chronic back pain Surgical History Status post insertion of brain-responsive neurostimulation device Social History household members: spouse lives independently: Yes caregiver/support person: No Smoking Status: Former smoker alcohol intake: never substance use type: does not use Assessment & Plan Assessment & Plan narrative: 1. Cyclic vomiting syndrome Likely multifactorial from underlying diabetic gastroparesis, chronic untreated pain, and cannabinoid hyperemesis syndrome. I did recommend following up with her PCP to look at a referral for a gastric emptying study to evaluate for gastroparesis. With regard to her chronic pain from her interstitial cystitis, I suggested they look at getting a referral back to the [facility] pain [facility] to look at whether there are any new treatments available. Another option would be to ask for referral to a functional medicine physician, as there may be some alternative options that they could look at to provide additional management for her interstitial cystitis. Could consider acupuncture or acupressure as well. Ultimately, I advised I feel strongly she needs to get back on a pain management program such that she is able to be weaned off of the CBD as I feel this plays a strong role in her cyclic vomiting syndrome. While her primary care clinic does not prescribe chronic opiate therapy any longer, she does need to be referred to a pain clinic so that she is able to be weaned off of the CBD as her cyclic vomiting syndrome is greatly impacting her quality of life. She continues on pentosan and a TCA. She is also status post nerve stimulator placement 2. Hypercalcemia Resolved. This was secondary to profound dehydration on admission 3. Lactic acidosis Resolved. Lactate was 7.2 on admission. With aggressive hydration it was trending down. This was secondary to profound hypovolemia. 4. Hypokalemia and hypomagnesemia Potassium was 2.9 this morning and magnesium 0.9. Both are being repleted. 5. Diabetes mellitus type 2 Blood sugars have ranged from 167-214. Remains on Lantus 35 units daily. Continue fingersticks sliding scale. 6. Hypertension Continues on hydrochlorothiazide. Blood pressures are normotensive 7. Remote uterine cancer status post hysterectomy In remission 8. PTSD/anxiety/depression Continue citalopram. Code status DNR Prophylaxis Low Lorelei score Disposition Anticipate she will be ready for discharge home tomorrow Time-Based Coding :: [TOTAL MINUTES] spent with patient and on the chart (including review of chart, obtaining history, exam, reviewing outside data, placing orders, documenting exam and treatment plan, and counseling patient) on [DATE]. Quality VTE Deep Vein Thrombosis/Pulmonary Embolism Present on Admission: No
[2025-07-09 06:43] LABS: Hematocrit 33.7 % (36-46); Hemoglobin 11.5 g/dL (12.0-16.0); Mean Corpuscular HGB Conc 34.3 % (30-36); Mean Corpuscular Hemoglobin 30.5 PG (26-34); Mean Corpuscular Volume 89.0 fL (80-100); Platelet Count 226 X10^3/uL (150-400)
[2025-07-09 06:50] LABS: Calcium 9.6 mg/dL (8.4-10.2); Carbon Dioxide 20 mmol/L (22-32); Chloride 104 mmol/L (98-107); Glucose 193 mg/dL (70-99); HEMOLYSIS < 15 (0-50); Potassium 2.9 mmol/L (3.4-5.1); Sodium 133 mmol/L (137-145)
[2025-07-09 06:51] LABS: Blood Urea Nitrogen 7 mg/dL (7-17); Estimated Glomerular Filt Rate > 60 mL/min (>60); Magnesium 1.0 mg/dL (1.6-2.3)
[2025-07-09 06:53] LABS: Hemoglobin A1C% w Est Avg Glu 7.3 % (4.0-6.0)
[2025-07-09 08:00] VITALS: BP 114/79; PULSE 99; RESP 18; TEMP 36.5; O2SAT 94
[2025-07-09] MEDS: PHENAZOPYRIDINE 100 MG TABLET PO ×3 (08:38→21:41)
[2025-07-09] MEDS: CITALOPRAM 10 MG TABLET 20 MG PO (08:39)
[2025-07-09] MEDS: POTASSIUM CHLORIDE IN WATER 10 MEQ/100 ML PIGGYBACK 100 MEQ IV ×6 (08:41→14:44)
[2025-07-09] MEDS: INSULIN LISPRO 100 UNIT/ML 3ML VIAL SUBCUT ×3 (08:45→21:51)
[2025-07-09] MEDS: MAGNESIUM SULFATE 4 GM/100 ML PIGGYBACK IV (08:49)
[2025-07-09] MEDS: CYCLOBENZAPRINE 10 MG TABLET PO (08:50)
[2025-07-09] MEDS: LOSARTAN 25 MG TABLET PO (08:51)
[2025-07-09 11:43] VITALS: BP 123/82; PULSE 105; RESP 16; TEMP 37.2; O2SAT 92
[2025-07-09 15:00] VITALS: BP 119/77; PULSE 105; RESP 18; TEMP 36.5; O2SAT 94
[2025-07-09 16:44] LABS: HEMOLYSIS < 15 (0-50); Magnesium 1.4 mg/dL (1.6-2.3); Potassium 3.4 mmol/L (3.4-5.1)
[2025-07-09] MEDS: METOCLOPRAMIDE 10 MG/2 ML INJ 5 MG IV (17:21)
[2025-07-09] MEDS: POTASSIUM CHLORIDE 20 MEQ TAB PO ×3 (19:00→23:18)
[2025-07-09 19:44] VITALS: BP 127/87; PULSE 106; RESP 18; TEMP 36.7; O2SAT 95
[2025-07-09] MEDS: SODIUM CHLORIDE 0.9% FLUSH 10 ML IV (21:00)
[2025-07-09] MEDS: MAGNESIUM OXIDE 400 MG TABLET PO (21:37)
[2025-07-09] MEDS: TAMSULOSIN 0.4 MG CAPSULE PO (21:41)
[2025-07-09] MEDS: INSULIN GLARGINE 100 UNIT/ML 3ML PEN 40 UNIT SUBCUT (21:50)
[2025-07-10 00:39] VITALS: BP 122/81; PULSE 98; RESP 18; TEMP 36.6; O2SAT 96
[2025-07-10] MEDS: MORPHINE 2 MG/ML INJ IV ×2 (01:28→15:59)
[2025-07-10] MEDS: METOCLOPRAMIDE 10 MG/2 ML INJ 5 MG IV (01:30)
[2025-07-10 04:13] VITALS: BP 125/74; PULSE 100; RESP 18; TEMP 37.2; O2SAT 93
[2025-07-10 06:16] LABS: Blood Urea Nitrogen 8 mg/dL (7-17); Calcium 9.5 mg/dL (8.4-10.2); Carbon Dioxide 21 mmol/L (22-32); Chloride 102 mmol/L (98-107); Estimated Glomerular Filt Rate > 60 mL/min (>60); Glucose 222 mg/dL (70-99); HEMOLYSIS < 15 (0-50); Potassium 3.3 mmol/L (3.4-5.1); Sodium 134 mmol/L (137-145)
[2025-07-10 06:22] LABS: Magnesium 0.9 mg/dL (1.6-2.3)
[2025-07-10 08:00] VITALS: BP 98/69; PULSE 101; RESP 17; TEMP 36.3; O2SAT 94
[2025-07-10] MEDS: INSULIN LISPRO 100 UNIT/ML 3ML VIAL SUBCUT ×5 (08:35→18:02)
[2025-07-10] MEDS: PHENAZOPYRIDINE 100 MG TABLET PO ×2 (09:02→15:44)
[2025-07-10] MEDS: MAGNESIUM SULFATE 2 GM/50 ML PIGGYBACK IV ×2 (09:03→11:42)
[2025-07-10] MEDS: MAGNESIUM OXIDE 400 MG TABLET PO (09:03)
[2025-07-10] MEDS: SODIUM CHLORIDE 0.9% FLUSH 10 ML IV (09:03)
[2025-07-10] MEDS: CYCLOBENZAPRINE 10 MG TABLET PO (09:03)
[2025-07-10 11:06] VITALS: BP 133/80; PULSE 101; RESP 17; TEMP 36.9; O2SAT 95
[2025-07-10] MEDS: POTASSIUM CHLORIDE IN WATER 10 MEQ/100 ML PIGGYBACK 100 MEQ IV ×3 (11:07→15:35)
[2025-07-10] MEDS: POTASSIUM CHLORIDE IN WATER 10 MEQ/100 ML PIGGYBACK 50 MEQ IV (12:51)
[2025-07-10 15:00] VITALS: BP 133/85; PULSE 100; RESP 16; TEMP 37; O2SAT 95
--- NOTE | 2025-07-10 15:54 | CM.DPC ---
DCP Cont: Per MD, pt getting a Mag Satinder this morning and switch to PO K and anticipates likely discharge home tonight. MD states pt and spouse agreeable with this plan. No further needs anticipated. LUIZA Taylor
--- NOTE | 2025-07-10 16:21 | PM.DS.1 ---
History of Present Illness History of Present Illness Date Patient Seen: 07/10/25 Chief complaint: Vomiting 3x today Narrative: Chief complaint: Continuous vomiting x3 days with hypomagnesemia hypokalemia dehydration with hypercalcemia at 14 History of present illness: 07/06: 51-year-old female 50-year-old female with past medical history of chronic pain related to interstitial cystitis currently off opioid and on marijuana, prior uterine cancer status post hysterectomy in 2023 Hypertension, [id number] diabetes and PTSD presents with nausea, vomiting, diarrhea and abdominal pain. Per the patient's report, the patient started to have severe nausea and vomiting about 2 days. The patient states that she does have cyclic nausea vomiting every 3 to 4 months. The patient states that she takes multiple tablets of Tums in the last few days to help with her nausea. The patient otherwise denies any fever, chills, dysuria, chest pain, shortness of breath or syncope. In the emergency room, the patient was hypertensive but otherwise stable. Systolic blood pressure was in the 200s. However labs shows a calcium level of 16 and lactate of 7.2. However there is no sign of sepsis with normal WBC negative UA and chest x-ray showing no signs of pneumonia. The patient also has CT abdomen and pelvic that shows questionable mild edema around the pancreatic tail but however lipase is not significantly elevated. The patient was given IV fluid calcitonin empiric IV ceftriaxone and repeat calcium did come down to 14 and eventually 13. Lactate also improves down to 4 and again 2.4. Our ER physician did also contacted nephrology in regards to the hypercalcemia and the thought was that is likely due to her ingestion of Tums. Patient is also given IV fluid and Lasix. Additional history: I met with she and her today. She was had chronic pain related to interstitial cystitis. She has been to the [facility] pain Clinic for 3 years and ultimately graduated on oxycodone 10 mg as needed for about 2 doses a day. She was stopped receiving oxycodone due to environmental changes with her medical provider 3 years ago. She was not able to tolerate gabapentin or Lyrica. She has been using CBD 2 to 3 times a day for control of symptoms in the form of an edible for the last several years. She was having sporadic episodes of cyclic vomiting and abdomen pain since 2021 with these have become a little more severe. Her wonders if this related to being on Brilinta for a year, the cessation of opiates, or the CBD. Hospital course: 07/08: This morning she was able to eat approximately 1/4 of a cup of fruit, which is the 1st intake she has had in 6 days. She continues to have nausea, but no vomiting. She has difficulty with discussing her history as she has had a traumatic past with regard to her interstitial cystitis in her chronic pain. She was cut off from her chronic opiate therapy at the [facility]. She has been unable to have an ongoing prescription for the opiates that were working reasonably well for her and has been on CBD since 2021. After they abruptly stopped her opiates, [place]. Since then, it has been even more cumbersome for her to have any chronic pain management. Her spouse has been attempting to advocate for her but has great difficulty doing so because most places expect she should advocate for herself and because of her previous trauma she has difficulty doing so. He asked what the etiology of her cyclic vomiting syndrome might be. 07/09: She reports she is feeling a bit better today compared with yesterday. She was able to eat 4 bites of pancakes this morning as well as a bit more fruit. She continues to require electrolyte riders. She has 6 potassium riders and magnesium ordered this morning. Her is at bedside. He remains very involved and supportive in her care. She feels fairly confident that her cyclic vomiting began in 2021 when she had to switch to CBD for pain management when her primary clinic change the policy and stopped prescribing opiates. 07/10: Appetite has improved today he is able to eat more still feeling a bit woozy, however potassium 3.3 sodium 134 and magnesium dropped to 0.9 calcium however corrected to 9.6 and is still in reference range K riders and magnesium infusion started today. 07/11: Magnesium replaced 1.3 potassium in reference range patient discharged home with oral supplements Review of systems: No chest pain palpitations No fevers chills No paresthesia or paresis Is having a lot of leg and ankle cramping and toes cramping Physical exam: Anxious but very pleasant elderly female HEENT unremarkable Heart rate and rhythm regular Lungs are clear Abdomen is nondistended Extremities no edema Neurologic nonfocal Assessment and plan: 1. Cyclic vomiting syndrome Likely multifactorial from underlying diabetic gastroparesis, chronic untreated pain, and cannabinoid hyperemesis syndrome. I did recommend following up with her PCP to look at a referral for a gastric emptying study to evaluate for gastroparesis. With regard to her chronic pain from her interstitial cystitis, I suggested they look at getting a referral back to the [facility] pain Clinic to look at whether there are any new treatments available. Another option would be to ask for referral to a functional medicine physician, as there may be some alternative options that they could look at to provide additional management for her interstitial cystitis. Could consider acupuncture or acupressure as well. Ultimately, I advised I feel strongly she needs to get back on a pain management program such that she is able to be weaned off of the CBD as I feel this plays a strong role in her cyclic vomiting syndrome. While her primary care clinic does not prescribe chronic opiate therapy any longer, she does need to be referred to a pain clinic so that she is able to be weaned off of the CBD as her cyclic vomiting syndrome is greatly impacting her quality of life. She continues on pentosan and a TCA. She is also status post nerve stimulator placement 2. Hypercalcemia Resolved. This was secondary to profound dehydration on admission 3. Lactic acidosis Resolved. Lactate was 7.2 on admission. With aggressive hydration it was trending down. This was secondary to profound hypovolemia. 4. Hypokalemia hyponatremia and hypomagnesemia Potassium was 2.9 this morning and magnesium 0.9. Both are being repleted. Discontinue hydrochlorothiazide and losartan as this may be hindering repletion 5. Diabetes mellitus type 2 Blood sugars have ranged from 167-214. Remains on Lantus 35 units daily. Continue fingersticks sliding scale. 6. Hypertension Discontinue hydrochlorothiazide. Blood pressures are normotensive 7. Remote uterine cancer status post hysterectomy In remission 8. PTSD/anxiety/depression Continue citalopram. Code status DNR Prophylaxis Low Lorelei score Disposition Anticipate she will be ready for discharge home tomorrow Time-Based Coding :: 35 minutes spent with patient and on the chart (including review of chart, obtaining history, exam, reviewing outside data, placing orders, documenting exam and treatment plan, and counseling patient). Discharge Providers Provider Date of admission: 07/08/25 12:50 Discharge Date: 07/10/25 Primary care physician: Madhav BROWN Provider Discharge provider: See Celis MD Exam Vital Signs (past 8 hours): - 07/10/25 11:06 Temperature 98.5 F Pulse Rate 101 H Respiratory Rate 17 Blood Pressure 133/80 Pulse Oximetry 95 Oxygen Flow Rate 0 Oxygen Delivery Method Room Air Oxygen Flow Rate 0 Objective Labs 07/09/25 06:24 07/10/25 18:22 Labs: Laboratory Results - last 24 hr 07/09/25 07/09/25 07/09/25 16:06 16:48 21:10 Sodium Potassium 3.4 Chloride Carbon Dioxide BUN Creatinine Estimated GFR BUN/Creatinine Ratio Glucose POC Whole Bld Glucose 214 H 240 H Calcium Magnesium 1.4 L 07/10/25 07/10/25 07/10/25 05:30 08:30 11:10 Sodium 134 L Potassium 3.3 L Chloride 102 Carbon Dioxide 21 L BUN 8 Creatinine 0.56 Estimated GFR > 60 BUN/Creatinine Ratio 14.3 Glucose 222 H POC Whole Bld Glucose 256 H 275 H Calcium 9.5 Magnesium 0.9 L* [facility] Medical History Endometrioid adenocarcinoma of uterus Abnormal MRI, pelvis Abnormal uterine bleeding (AUB) Anxiety disorder No pertinent family history Chronic interstitial cystitis HTN (hypertension) Diabetes type 2, controlled Chronic back pain Surgical History Status post insertion of brain-responsive neurostimulation device Social History household members: spouse lives independently: Yes caregiver/support person: No Smoking Status: Former smoker alcohol intake: never substance use type: does not use Discharge Plan Discharge Plan Patient Disposition: Home Provider Discharge Comment: You were admitted with cyclic vomiting syndrome. It is suspected this is caused from a combination of your untreated chronic pain from interstitial cystitis, your use of CBD to manage her pain, and possibly underlying gastroparesis from diabetes. It is recommended you follow-up with your primary care provider for consideration of the following: Referral to [facility] pain management clinic for further recommendations and possible ongoing management Referral for a gastric emptying study to assess for underlying undiagnosed gastroparesis Consideration of a referral to a functional medicine specialist physician Referral to a local pain medicine clinic for consideration of resumption of opioid treatment so you can be weaned off of CBD as this is felt to be likely strong contributor to her cyclic vomiting syndrome, as it is suspected to have cannabinoid hyperemesis syndrome Return to the ED: Increased shortness of breath/chest pain. Inability to hold down food/fluids/medications. Fevers/chills. Discharge orders & Medications Prescriptions: New magnesium oxide 400 mg (241.3 mg magnesium) Tablet 400 mg PO BID Qty: 30 0RF fluconazole 150 mg tablet 150 mg PO DAILY Qty: 7 0RF potassium chloride 20 mEq tablet extended release 20 meq PO BID Qty: 60 0RF Continued tamsulosin [Flomax] 0.4 MG capsule,extended release 24hr 0.4 mg PO QHS Qty: 0 imipramine HCl 25 MG tablet 75 mg PO HS Qty: 0 cyclobenzaprine 10 MG tablet 10 mg PO QDAY Qty: 0 fenofibrate 54 mg tablet 54 mg PO DAILY Elmiron 100 mg capsule 100 mg PO 3XD oxybutynin chloride 5 mg tablet extended release 24hr 5 mg PO DAILY promethazine 25 mg tablet 25 mg PO Q8H PRN (Reason: nausea and vomiting) citalopram 20 mg tablet 20 mg PO DAILY phenazopyridine 100 mg tablet 100 mg PO 3XD fluoride (sodium) [PreviDent 5000 Plus] 1.1 % cream 1 applic PO DAILY clobetasol 0.05 % cream 1 applic topical DAILY Discontinued hydrochlorothiazide 25 MG tablet 25 mg PO QDAY Qty: 0 losartan 25 mg tablet 25 mg PO DAILY metformin 1,000 mg tablet 1,000 mg PO BID Follow up/Referrals: ProviderMadhav [Primary Care Provider, Family Practice] Visit Report/Discharge Packet Stand Alone Forms: Patient Portal/API, Stroke Signs & Symptoms Discharge Data Primary Care Provider: Madhav Hong Quality VTE Deep Vein Thrombosis/Pulmonary Embolism Present on Admission: No
[2025-07-10 18:41] LABS: Blood Urea Nitrogen 9 mg/dL (7-17); Calcium 9.3 mg/dL (8.4-10.2); Carbon Dioxide 19 mmol/L (22-32); Chloride 103 mmol/L (98-107); Estimated Glomerular Filt Rate > 60 mL/min (>60); Glucose 324 mg/dL (70-99); HEMOLYSIS 17 (0-50); Magnesium 1.3 mg/dL (1.6-2.3); Potassium 3.9 mmol/L (3.4-5.1); Sodium 132 mmol/L (137-145)
--- NOTE | 2025-07-10 19:19 | PC.NURSE ---
Patient completed her magnesium 4g infusions and potassium infusions (40 MeQ total) see MAR. Follow up lab work drawn and Dr. Celis notified of magnesium 1.3 on repeate. Patient has been tolerating more food today, up to bathroom with SB assistance, calls appropriately for needs.
[2025-07-10 19:45] VITALS: BP 133/85; PULSE 100
[2025-07-10] MEDS: PROCHLORPERAZINE 10 MG/2 ML VIAL IV (19:45)
[2025-07-11 07:40] LABS: Parathyroid Hormone, Intact <6 pg/mL (15-65)
== END 2025-07-10 20:28 | disposition home or self-care (01) | DRG 74 ==
LOC: ED 19:00 → AC 22:29
PROVIDERS: Hospitalist; Internal Medicine; Physician Assistant; Admitting Provider Internal Medicine; Emergency Provider Emergency Medicine; Referring Provider Emergency Medicine; Visit Provider Internal Medicine
DX: E11.43 Type 2 diabetes mellitus with diabetic autonomic (poly)neuropathy (principal); E87.20 Acidosis, unspecified; E87.1 Hypo-osmolality and hyponatremia; E86.0 Dehydration; K31.84 Gastroparesis; T47.1X1A Poisoning by other antacids and anti-gastric-secretion drugs, accidental (unintentional), initial encounter; E83.52 Hypercalcemia; E87.6 Hypokalemia; I10 Essential (primary) hypertension; G89.4 Chronic pain syndrome; N30.10 Interstitial cystitis (chronic) without hematuria; E86.1 Hypovolemia; R11.15 Cyclical vomiting syndrome unrelated to migraine; E83.42 Hypomagnesemia; F43.10 Post-traumatic stress disorder, unspecified; F41.9 Anxiety disorder, unspecified; F32.A Depression, unspecified; R11.16 Cannabis hyperemesis syndrome; F12.90 Cannabis use, unspecified, uncomplicated; Z66 Do not resuscitate; Z85.42 Personal history of malignant neoplasm of other parts of uterus; Z90.710 Acquired absence of both cervix and uterus; Z87.891 Personal history of nicotine dependence; Z96.82 Presence of neurostimulator; Z79.84 Long term (current) use of oral hypoglycemic drugs
CPT/HCPCS: 36415; 71045; 74177; 80048; 80053; 81003; 81015; 82306; 82310; 82550; 82962; 83036; 83605; 83690; 83735; 83880; 83970; 84100; 84132; 84145; 84484; 85025; 85027; 85610; 85730; 87040; 93005; 96361; 96365; 96366; 96367; 96368; 96372; 96375; 99284; 99291; G0378; J0630; J0696; J0780; J1171; J1815; J1938; J2270; J2272; J2405; J2470; J2765; J3475; J3489; J7030; J7050; J7120; Q9967